=== PATIENT | male | born 1930 | race Caucasian/White ===

== ENCOUNTER 2017-10-05 16:24 | Inpatient (IN) | payer MEDICARE ==
[2017-10-05] MEDS ORDERED: SODIUM CHLORIDE 0.9% 1,000 ML IV STA ×2 (16:29→17:41)
--- NOTE | 2017-10-05 16:51 | ED ---
General Adult HPI - General Chief complaint: Altered Mental Status Stated complaint: altered mental status Time Seen by Provider: 10/05/17 16:28 Source: patient, EMS, RN notes reviewed, old records reviewed Mode of arrival: EMS Limitations: altered mental status - History of Present Illness Initial comments: This is an 86-year-old male to the ER today. Patient is having progressively worsening shortness of breath. Patient's family is able to provide history as patient is not, EMS also provide history. Patient does not know where he is and is completely altered. Patient's brought in for 3 days of worsening symptoms, worsening breathing and worsening mental state, decreased appetite and anorexia - Related Data Home Medications Medication Instructions Recorded Confirmed Atorvastatin [Lipitor] 80 mg PO HS 10/05/17 10/05/17 Finasteride [Proscar] 5 mg PO DAILY 10/05/17 10/05/17 Glimepiride [Amaryl] 2 mg PO AC-BRKFST 10/05/17 10/05/17 Metoprolol Tartrate [Lopressor] 50 mg PO BID 10/05/17 10/05/17 amLODIPine [Norvasc] 5 mg PO DAILY 10/05/17 10/05/17 metFORMIN HCL [Glucophage] 850 mg PO TID 10/05/17 10/05/17 Allergies Allergy/AdvReac Type Severity Reaction Status Date / Time No Known Allergies Allergy Unverified 10/05/17 17:06 Review of Systems ROS Statement: Those systems with pertinent positive or pertinent negative responses have been documented in the HPI. ROS Other: All systems not noted in ROS Statement are negative. Past Medical History Past Medical History: Diabetes Mellitus, Hyperlipidemia, Hypertension History of Any Multi-Drug Resistant Organisms: None Reported Past Surgical History: Unable to Obtain Past Psychological History: No Psychological Hx Reported Smoking Status: Never smoker Past Alcohol Use History: None Reported Past Drug Use History: None Reported General Exam Limitations: altered mental status General appearance: alert, lethargic, in distress Head exam: Present: atraumatic, normocephalic, normal inspection Eye exam: Present: normal appearance, PERRL, EOMI. Absent: scleral icterus, conjunctival injection, periorbital swelling ENT exam: Present: mucous membranes dry Neck exam: Present: normal inspection. Absent: tenderness, meningismus, lymphadenopathy Respiratory exam: Present: normal lung sounds bilaterally. Absent: respiratory distress, wheezes, rales, rhonchi, stridor Cardiovascular Exam: Present: regular rate, normal rhythm, normal heart sounds. Absent: systolic murmur, diastolic murmur, rubs, gallop, clicks GI/Abdominal exam: Present: soft, normal bowel sounds. Absent: distended, tenderness, guarding, rebound, rigid Extremities exam: Present: normal inspection, full ROM, normal capillary refill. Absent: tenderness, pedal edema, joint swelling, calf tenderness Back exam: Present: normal inspection Neurological exam: Present: altered Psychiatric exam: Present: normal affect, normal mood Skin exam: Present: warm, dry, intact, normal color. Absent: rash Course Vital Signs 10/05/17 10/05/17 10/05/17 16:32 19:00 19:07 Temperature 98.1 F Pulse Rate 92 90 Respiratory 20 20 26 H Rate Blood Pressure 109/52 101/56 O2 Sat by Pulse 99 99 95 Oximetry 10/05/17 10/05/17 10/05/17 19:51 20:25 20:37 Temperature Pulse Rate 89 98 85 Respiratory 26 H 26 H 26 H Rate Blood Pressure 95/51 99/55 122/58 O2 Sat by Pulse 94 L 93 L 97 Oximetry - Reevaluation(s) Reevaluation #1: 10/05/17 20:49 Patient's deteriorating mentally, patient placed on oxygen secondary to borderline pulse ox. Patient is agitated EKG Findings - EKG Comments: EKG Findings:: EKG shows sinus rhythm rate of 88, [place] 164, QRS 120, QTc 486 Medical Decision Making - Medical Decision Making 86 male the ER for evaluation, patient has been made DO NOT RESUSCITATE patient. Patient is here for evaluation regarding altered mental state. Patient has been having declining health for 3 days, severe metabolic acidosis secondary to renal failure and uremia patient given bicarb, admitted to ICU for further evaluation and electrolyte management, fluid intake and cardiopulmonary status - Lab Data Result diagrams: 10/05/17 16:40 10/05/17 16:40 Lab Results 10/05/17 10/05/17 10/05/17 Range/Units 16:40 16:40 16:40 WBC 5.9 (3.8-10.6) k/uL RBC 2.78 L (4.30-5.90) m/uL Hgb 7.8 L (13.0-17.5) gm/dL Hct 26.1 L (39.0-53.0) % MCV 94.1 (80.0-100.0) fL MCH 28.0 (25.0-35.0) pg MCHC 29.7 L (31.0-37.0) g/dL RDW 13.9 (11.5-15.5) % Plt Count 222 (150-450) k/uL Neutrophils % 67 % Lymphocytes % 24 % Monocytes % 5 % Eosinophils % 3 % Basophils % 0 % Neutrophils # 4.0 (1.3-7.7) k/uL Lymphocytes # 1.4 (1.0-4.8) k/uL Monocytes # 0.3 (0-1.0) k/uL Eosinophils # 0.2 (0-0.7) k/uL Basophils # 0.0 (0-0.2) k/uL Hypochromasia Marked PT (9.0-12.0) sec INR (<1.2) APTT (22.0-30.0) sec Sample Site ABG pH (7.35-7.45) ABG pCO2 (35-45) mmHg ABG pO2 (83-108) mmHg ABG HCO3 (21-25) mmol/L ABG O2 Saturation (94-97) % [place] Test FiO2 % Sodium 141 (137-145) mmol/L Potassium 5.5 H (3.5-5.1) mmol/L Chloride 114 H (98-107) mmol/L Carbon Dioxide <5 L* (22-30) mmol/L Anion Gap mmol/L BUN 111 H* (9-20) mg/dL Creatinine 11.80 H* (0.66-1.25) mg/dL Est GFR (CKD-EPI)AfAm 4 (>60 ml/min/1.73 sqM) Est GFR (CKD-EPI)NonAf 3 (>60 ml/min/1.73 sqM) Glucose 171 H (74-99) mg/dL Lactic Ac Sepsis Rflx Plasma Lactic Acid Gabriele (0.7-2.0) mmol/L Calcium 8.2 L (8.4-10.2) mg/dL Phosphorus 8.4 H* (2.5-4.5) mg/dL Magnesium 1.7 (1.6-2.3) mg/dL Total Bilirubin 0.2 (0.2-1.3) mg/dL AST 18 (17-59) U/L ALT 21 (21-72) U/L Alkaline Phosphatase 93 (38-126) U/L Total Creatine Kinase 47 L (55-170) U/L CK-MB (CK-2) 2.6 H* (0.0-2.4) ng/mL CK-MB (CK-2) Rel Index 5.5 Troponin I 0.359 H* (0.000-0.034) ng/mL Total Protein 5.6 L (6.3-8.2) g/dL Albumin 3.4 L (3.5-5.0) g/dL Urine Color Urine Appearance (Clear) Urine pH (5.0-8.0) Ur Specific [place] (1.001-1.035) Urine Protein (Negative) Urine Glucose (UA) (Negative) Urine Ketones (Negative) Urine Blood (Negative) Urine Nitrite (Negative) Urine Bilirubin (Negative) Urine Urobilinogen (<2.0) mg/dL Ur Leukocyte Esterase (Negative) Urine RBC (0-5) /hpf Urine WBC (0-5) /hpf Urine WBC Clumps (None) /hpf Ur Squamous Epith Cells (0-4) /hpf Urine Bacteria (None) /hpf Urine Yeast (Budding) (None) /hpf 10/05/17 10/05/17 10/05/17 Range/Units 16:40 16:40 17:02 WBC (3.8-10.6) k/uL RBC (4.30-5.90) m/uL Hgb (13.0-17.5) gm/dL Hct (39.0-53.0) % MCV (80.0-100.0) fL MCH (25.0-35.0) pg MCHC (31.0-37.0) g/dL RDW (11.5-15.5) % Plt Count (150-450) k/uL Neutrophils % % Lymphocytes % % Monocytes % % Eosinophils % % Basophils % % Neutrophils # (1.3-7.7) k/uL Lymphocytes # (1.0-4.8) k/uL Monocytes # (0-1.0) k/uL Eosinophils # (0-0.7) k/uL Basophils # (0-0.2) k/uL Hypochromasia PT 9.7 (9.0-12.0) sec INR 1.0 (<1.2) APTT 26.4 (22.0-30.0) sec Sample Site ABG pH (7.35-7.45) ABG pCO2 (35-45) mmHg ABG pO2 (83-108) mmHg ABG HCO3 (21-25) mmol/L ABG O2 Saturation (94-97) % [place] Test FiO2 % Sodium (137-145) mmol/L Potassium (3.5-5.1) mmol/L Chloride (98-107) mmol/L Carbon Dioxide (22-30) mmol/L Anion Gap mmol/L BUN (9-20) mg/dL Creatinine (0.66-1.25) mg/dL Est GFR (CKD-EPI)AfAm (>60 ml/min/1.73 sqM) Est GFR (CKD-EPI)NonAf (>60 ml/min/1.73 sqM) Glucose (74-99) mg/dL Lactic Ac Sepsis Rflx Y Plasma Lactic Acid [place]rie[place] 5.2 H* (0.7-2.0) mmol/L Calcium (8.4-10.2) mg/dL Phosphorus (2.5-4.5) mg/dL Magnesium (1.6-2.3) mg/dL Total Bilirubin (0.2-1.3) mg/dL AST (17-59) U/L ALT (21-72) U/L Alkaline Phosphatase (38-126) U/L Total Creatine Kinase (55-170) U/L CK-MB (CK-2) (0.0-2.4) ng/mL CK-MB (CK-2) Rel Index Troponin I (0.000-0.034) ng/mL Total Protein (6.3-8.2) g/dL Albumin (3.5-5.0) g/dL Urine Color Urine Appearance (Clear) Urine pH (5.0-8.0) Ur Specific [place] (1.001-1.035) Urine Protein (Negative) Urine Glucose (UA) (Negative) Urine Ketones (Negative) Urine Blood (Negative) Urine Nitrite (Negative) Urine Bilirubin (Negative) Urine Urobilinogen (<2.0) mg/dL Ur Leukocyte Esterase (Negative) Urine RBC (0-5) /hpf Urine WBC (0-5) /hpf Urine WBC Clumps (None) /hpf Ur Squamous Epith Cells (0-4) /hpf Urine Bacteria (None) /hpf Urine Yeast (Budding) (None) /hpf 10/05/17 10/05/17 Range/Units 17:43 18:25 WBC (3.8-10.6) k/uL RBC (4.30-5.90) m/uL Hgb (13.0-17.5) gm/dL Hct (39.0-53.0) % MCV (80.0-100.0) fL MCH (25.0-35.0) pg MCHC (31.0-37.0) g/dL RDW (11.5-15.5) % Plt Count (150-450) k/uL Neutrophils % % Lymphocytes % % Monocytes % % Eosinophils % % Basophils % % Neutrophils # (1.3-7.7) k/uL Lymphocytes # (1.0-4.8) k/uL Monocytes # (0-1.0) k/uL Eosinophils # (0-0.7) k/uL Basophils # (0-0.2) k/uL Hypochromasia PT (9.0-12.0) sec INR (<1.2) APTT (22.0-30.0) sec Sample Site R. Radial ABG pH 7.02 L* (7.35-7.45) ABG pCO2 <15 L* (35-45) mmHg ABG pO2 134 H (83-108) mmHg ABG HCO3 8 L* (21-25) mmol/L ABG O2 Saturation 98.2 H (94-97) % [place] Test Yes FiO2 21 % Sodium (137-145) mmol/L Potassium (3.5-5.1) mmol/L Chloride (98-107) mmol/L Carbon Dioxide (22-30) mmol/L Anion Gap mmol/L BUN (9-20) mg/dL Creatinine (0.66-1.25) mg/dL Est GFR (CKD-EPI)AfAm (>60 ml/min/1.73 sqM) Est GFR (CKD-EPI)NonAf (>60 ml/min/1.73 sqM) Glucose (74-99) mg/dL Lactic Ac Sepsis Rflx Plasma Lactic Acid [place] (0.7-2.0) mmol/L Calcium (8.4-10.2) mg/dL Phosphorus (2.5-4.5) mg/dL Magnesium (1.6-2.3) mg/dL Total Bilirubin (0.2-1.3) mg/dL AST (17-59) U/L ALT (21-72) U/L Alkaline Phosphatase (38-126) U/L Total Creatine Kinase (55-170) U/L CK-MB (CK-2) (0.0-2.4) ng/mL CK-MB (CK-2) Rel Index Troponin I (0.000-0.034) ng/mL Total Protein (6.3-8.2) g/dL Albumin (3.5-5.0) g/dL Urine Color Light Yellow Urine Appearance Cloudy (Clear) Urine pH 5.5 (5.0-8.0) Ur Specific [place] 1.011 (1.001-1.035) Urine Protein 1+ H (Negative) Urine Glucose (UA) Negative (Negative) Urine Ketones Trace H (Negative) Urine Blood Small H (Negative) Urine Nitrite Negative (Negative) Urine Bilirubin Negative (Negative) Urine Urobilinogen <2.0 (<2.0) mg/dL Ur Leukocyte Esterase Moderate H (Negative) Urine RBC 11 H (0-5) /hpf Urine WBC 14 H (0-5) /hpf Urine WBC Clumps Few H (None) /hpf Ur Squamous Epith Cells <1 (0-4) /hpf Urine Bacteria Few H (None) /hpf Urine Yeast (Budding) Few H (None) /hpf - Radiology Data Radiology results: report reviewed (CT brain negative chest x-ray negative), image reviewed Disposition Clinical Impression: Altered mental status, Delirium due to general medical condition, Acute renal failure, Acidosis Disposition: ADMITTED IP TO THIS HOSP Condition: Critical Is patient prescribed a controlled substance at d/c from ED?: No Referrals: Joss Castro MD [Primary Care Provider] - 1-2 days
[2017-10-05 16:52] LABS: Basophils % (A) 0 %; Eosinophils # (A) 0.2 k/uL (0-0.7); Eosinophils % (A) 3 %; HCT 26.1 % (39.0-53.0); HGB 7.8 gm/dL (13.0-17.5); Hypochromasia Marked; Lymphocytes # (A) 1.4 k/uL (1.0-4.8); Lymphocytes % (A) 24 %; MCHC 29.7 g/dL (31.0-37.0); MCV 94.1 fL (80.0-100.0); Mean Platelet Volume 9.3; Monocytes # (A) 0.3 k/uL (0-1.0); Monocytes % (A) 5 %; Neutrophils % (A) 67 %; Platelet Count 222 k/uL (150-450); RBC 2.78 m/uL (4.30-5.90); RDW 13.9 % (11.5-15.5); WBC 5.9 k/uL (3.8-10.6)
[2017-10-05 17:01] LABS: Partial Thromboplastin Time 26.4 sec (22.0-30.0); Prothrombin Time 9.7 sec (9.0-12.0)
[2017-10-05 17:04] LABS: ALT 21 U/L (21-72); AST 18 U/L (17-59); Albumin 3.4 g/dL (3.5-5.0); Alkaline Phosphatase 93 U/L (38-126); Calcium 8.2 mg/dL (8.4-10.2); Chloride 114 mmol/L (98-107); Glucose 171 mg/dL (74-99); Magnesium 1.7 mg/dL (1.6-2.3); Potassium 5.5 mmol/L (3.5-5.1); Sodium 141 mmol/L (137-145); Total Bilirubin 0.2 mg/dL (0.2-1.3); Total Protein 5.6 g/dL (6.3-8.2)
[2017-10-05 17:09] LABS: Carbon Dioxide <5 mmol/L (22-30)
[2017-10-05 17:10] LABS: Blood Urea Nitrogen 111 mg/dL (9-20); Phosphorus 8.4 mg/dL (2.5-4.5)
[2017-10-05 17:26] LABS: Creatine Kinase MB 2.6 ng/mL (0.0-2.4); Troponin I 0.359 ng/mL (0.000-0.034)
--- NOTE | 2017-10-05 17:34 | CT ---
EXAMINATION TYPE: CT brain wo con DATE OF EXAM: 10/05/2017 COMPARISON: NONE HISTORY: Weakness and slurred speech CT DLP: 1284.3 mGycm Automated exposure control for dose reduction was used. Helical imaging through the brain FINDINGS: Inflammatory changes present in the maxillary sinuses. The calvarium is intact. There is no hemorrhag e or hydrocephalus. Cortical atrophy is likely age-related. Cerebral vascular calcifications are pres ent. Periventricular white matter shows patchy low attenuation. IMPRESSION: AGE-RELATED CHANGES OF ATROPHY AND PROBABLE CHRONIC SMALL VESSEL ISCHEMIA.
--- NOTE | 2017-10-05 17:36 | XR ---
EXAMINATION TYPE: XR chest 2V DATE OF EXAM: 10/05/2017 COMPARISON: NONE HISTORY: Weakness, altered mental status TECHNIQUE: Frontal and lateral views of the chest are obtained. FINDINGS: Patient is rotated. There is prominence of right hilum possibly due to technique. Heart si ze may be accentuated due to rotation, patient is post median sternotomy. There is no evident airspac e disease, pneumothorax, or pleural effusion. IMPRESSION: Rotated exam. Follow-up in patient is clinically stable. Additional findings above.
[2017-10-05] MEDS ORDERED: SODIUM CHLORIDE 0.9% 500 ML IV STA (17:41)
[2017-10-05 17:47] LABS: ABG Oxygen Saturation 98.2 % (94-97); ABG PO2 134 mmHg (83-108)
[2017-10-05] MEDS ORDERED: SODIUM BICARB 8.4% 50 ML SYR (1 MEQ/ML) IV ONE (17:50)
[2017-10-05 18:29] LABS: ABG PCO2 <15 mmHg (35-45); ABG PH 7.02 (7.35-7.45)
[2017-10-05 18:31] LABS: ABG HCO3 8 mmol/L (21-25)
[2017-10-05 18:43] LABS: Appearance,Urine Cloudy (Clear); Bacteria,Urine Few /hpf; Bilirubin,Urine Negative (Negative); Blood,Urine Small (Negative); Budding Yeast,Urine Few /hpf; Color,Urine Light Yellow; Glucose,Urine (UA) Negative (Negative); Ketones,Urine Trace (Negative); Leukocyte Esterase,Urine Moderate (Negative); Nitrite,Urine Negative (Negative); PH, Urine 5.5 (5.0-8.0); Protein,Urine 1+ (Negative); RBC,Urine 11 /hpf (0-5); Specific Gravity,Urine 1.011 (1.001-1.035); Squamous Epithelial Cell,Urine <1 /hpf (0-4); Urobilinogen,Urine <2.0 mg/dL (<2.0); WBC,Urine 14 /hpf (0-5)
[2017-10-05] MEDS ORDERED: IPRATROPIUM-ALBUTEROL 3 ML NEB INHALATION STA (19:10)
[2017-10-05] MEDS ORDERED: cefTRIAXone 2,000 MG in SODIUM CHLORIDE 0.9% 100 ML IVPB STA (19:54)
[2017-10-05] MEDS ORDERED: cefTRIAXone IN SWFI 2,000 MG/20 ML SYRINGE IVP STA (20:04)
[2017-10-05] MEDS ORDERED: LORazepam 2 MG/ML INJ IV STA (20:10)
[2017-10-05] MEDS ORDERED: NALOXONE 0.4 MG/ML 1 ML VIAL IV PRN (20:40)
[2017-10-05] MEDS ORDERED: DEXTROSE 5%-0.45% NACL 1,000 ML IV SCH (20:45)
[2017-10-05] MEDS ORDERED: DEXTROSE 5% IN WATER 1,000 ML with SODIUM BICARB (1 MEQ/ML) 150 ML IV SCH (20:45)
--- NOTE | 2017-10-05 20:56 | XR ---
EXAMINATION TYPE: XR chest 1V portable DATE OF EXAM: 10/05/2017 COMPARISON: Prior chest same date earlier time HISTORY: Difficulty breathing TECHNIQUE: Single frontal view of the chest is obtained. FINDINGS: There is been interval development of bilateral airspace disease, increase in the intersti tium. No pneumothorax or pleural effusion. Heart is enlarged. IMPRESSION: Findings suggest congestive heart failure.
[2017-10-05 23:26] LABS: Glucose,Whole Blood 251 mg/dL (75-99)
[2017-10-06] MEDS ORDERED: LORazepam 2 MG/ML INJ IV PRN (00:20)
[2017-10-06] MEDS ORDERED: NOREPINEPHRIN 4 MG-0.9% NS PMX 4 MG/250 ML ML IV SCH (00:30)
--- NOTE | 2017-10-06 01:49 | P.PN ---
Progress Note - Text Progress Note Date: 10/06/17 Advanced Care Planning Active diagnoses: acute metabolic encephalopathy acute kidney in jury hypotesion metabolic imbalance Background: The patient was admitted for treatment of acute metabolic encephalopathy and acute kidney injury . Confirmation and clarification of wishes upon admission. Discussion: Person(s) present and participating in discussion: The patient, myself, and patient's two sons Summary: The patient has altered mental status and unable to express his wishes at this time, Per his son, he would not wish for CPR and artificial life sustaining measures, he lived all his life as a strong person and would not like to be living on machines. Patient sons agreed on No code status (DNR) but at the same time to continue aggressive measures in treating their father at least for the first 24-48 hours and to assess for any progress and improvement . If elective intubation is required they would like to have it discussed with them first before proceeding. They also agreed on continuing with dialysis as needed , and to use IV pressors if needed. Time spent: Total time spent face to face in education and discussion directly related to advanced care planning: >15 minutes
--- NOTE | 2017-10-06 01:59 | P.HPIM ---
History of Present Illness H&P Date: 10/05/17 Chief Complaint: Altered mental status 86-year-old male with history of diabetes mellitus hypertension and history of a bypass. Patient presented to the hospital accompanied by his sons due to altered mental status. He was at his baseline status of health up until few days ago he is very active person he would mow the lawn do yardwork in very active spends his day out running errands. He continues to take care of his and refill her medications and make sure she takes them. However over the past couple days he has not been feeling well however he was refusing going hospital up until today when he woke up and he seemed to be confused and altered in having poor appetite. His son grew more concerned and decided to bring him to the hospital otherwise the patient is unable to provide any meaningful history at this time due to altered mental status. History was obtained by reviewing the chart and talking to his sons Currently patient is in the ICU receiving hemodialysis. Patient grimaces to painful stimuli by otherwise does not interact or follow commands. The patient would fidget spontaneously move his upper extremities at times not purposefully. Patient symptoms denied any report of chest pain any injuries or falls. They have noticed that he had decreased appetite recently Review of Systems Unable to obtain at this time Past Medical History Past Medical History: Diabetes Mellitus, Hyperlipidemia, Hypertension History of Any Multi-Drug Resistant Organisms: None Reported Past Surgical History: Unable to Obtain Past Psychological History: No Psychological Hx Reported Smoking Status: Never smoker Past Alcohol Use History: None Reported Past Drug Use History: None Reported - Past Family History Family Additional Family Medical History / Comment(s): Unable to obtain Medications and Allergies Home Medications Medication Instructions Recorded Confirmed Type Atorvastatin [Lipitor] 80 mg PO HS 10/05/17 10/05/17 History Finasteride [Proscar] 5 mg PO DAILY 10/05/17 10/05/17 History Glimepiride [Amaryl] 2 mg PO AC-BRKFST 10/05/17 10/05/17 History Metoprolol Tartrate [Lopressor] 50 mg PO BID 10/05/17 10/05/17 History amLODIPine [Norvasc] 5 mg PO DAILY 10/05/17 10/05/17 History metFORMIN HCL [Glucophage] 850 mg PO TID 10/05/17 10/05/17 History Allergies Allergy/AdvReac Type Severity Reaction Status Date / Time No Known Allergies Allergy Unverified 10/05/17 17:06 Physical Exam Vitals: Vital Signs Temp Pulse Resp BP Pulse Ox 10/05/17 21:24 92 25 H 107/54 93 L 10/05/17 21:00 89 24 117/56 95 10/05/17 20:37 85 26 H 122/58 97 10/05/17 20:25 98 26 H 99/55 93 L 10/05/17 19:51 89 26 H 95/51 94 L 10/05/17 19:07 26 H 95 10/05/17 19:00 90 20 101/56 99 10/05/17 16:32 98.1 F 92 20 109/52 99 Intake and Output 10/05/17 10/05/17 10/05/17 06:59 14:59 22:59 Output Total 60 Balance -60 Output: Urine 60 Other: Weight 84.368 kg Constitutional: Altered mental status and confusion patient not following commands very lethargic Eyes: Anicteric sclerae, moist conjunctiva Pupils equal round reactive to light ENMT: NC/AT Patient resists opening his mouth Neck: Supple, FROM, no masses, or JVD No carotid bruits No thyromegaly Lungs: Audible breath sounds bilaterally with scattered rales Clear to percussion Normal respiratory effort, no accessory muscle use Cardiovascular: Heart regular in rate and rhythm, No murmurs, gallops, or rubs No peripheral edema Abdominal: Soft Nontender, no guarding, rebound or rigidity Abdomen moving with respiration Normoactive bowel sounds No hepatomegaly, No splenomegaly No palpable mass No abdominal wall hernia noted Skin: Normal temperature, tone, texture, turgor No induration No subcutaneous nodules No rash, lesions No ulcers Extremities: No digital cyanosis No clubbing Pedal pulses intact and symmetrical Radial pulses intact and symmetrical No calf tenderness Psychiatric: Lethargic not following commands, grimaces and localizes painful stimuli Neuro cannot assess neurologic exam Lymphatics: no palpable cervical or supraclavicular , or inguinal lymph nodes Patient currently receiving hemodialysis Results CBC & Chem 7: 10/05/17 16:40 10/05/17 16:40 Labs: Abnormal Lab Results - Last 24 Hours (Table) 10/05/17 10/05/17 10/05/17 Range/Units 16:40 16:40 16:40 RBC 2.78 L (4.30-5.90) m/uL Hgb 7.8 L (13.0-17.5) gm/dL Hct 26.1 L (39.0-53.0) % MCHC 29.7 L (31.0-37.0) g/dL ABG pH (7.35-7.45) ABG pCO2 (35-45) mmHg ABG pO2 (83-108) mmHg ABG HCO3 (21-25) mmol/L ABG O2 Saturation (94-97) % Potassium 5.5 H (3.5-5.1) mmol/L Chloride 114 H (98-107) mmol/L Carbon Dioxide <5 L* (22-30) mmol/L BUN 111 H* (9-20) mg/dL Creatinine 11.80 H* (0.66-1.25) mg/dL Glucose 171 H (74-99) mg/dL Plasma Lactic Acid [place] (0.7-2.0) mmol/L Calcium 8.2 L (8.4-10.2) mg/dL Phosphorus 8.4 H* (2.5-4.5) mg/dL Total Creatine Kinase 47 L (55-170) U/L CK-MB (CK-2) 2.6 H* (0.0-2.4) ng/mL Troponin I 0.359 H* (0.000-0.034) ng/mL Total Protein 5.6 L (6.3-8.2) g/dL Albumin 3.4 L (3.5-5.0) g/dL Urine Protein (Negative) Urine Ketones (Negative) Urine Blood (Negative) Ur Leukocyte Esterase (Negative) Urine RBC (0-5) /hpf Urine WBC (0-5) /hpf Urine WBC Clumps (None) /hpf Urine Bacteria (None) /hpf Urine Yeast (Budding) (None) /hpf 10/05/17 10/05/17 10/05/17 Range/Units 16:40 17:43 18:25 RBC (4.30-5.90) m/uL Hgb (13.0-17.5) gm/dL Hct (39.0-53.0) % MCHC (31.0-37.0) g/dL ABG pH 7.02 L* (7.35-7.45) ABG pCO2 <15 L* (35-45) mmHg ABG pO2 134 H (83-108) mmHg ABG HCO3 8 L* (21-25) mmol/L ABG O2 Saturation 98.2 H (94-97) % Potassium (3.5-5.1) mmol/L Chloride (98-107) mmol/L Carbon Dioxide (22-30) mmol/L BUN (9-20) mg/dL Creatinine (0.66-1.25) mg/dL Glucose (74-99) mg/dL Plasma Lactic Acid [place] 5.2 H* (0.7-2.0) mmol/L Calcium (8.4-10.2) mg/dL Phosphorus (2.5-4.5) mg/dL Total Creatine Kinase (55-170) U/L CK-MB (CK-2) (0.0-2.4) ng/mL Troponin I (0.000-0.034) ng/mL Total Protein (6.3-8.2) g/dL Albumin (3.5-5.0) g/dL Urine Protein 1+ H (Negative) Urine Ketones Trace H (Negative) Urine Blood Small H (Negative) Ur Leukocyte Esterase Moderate H (Negative) Urine RBC 11 H (0-5) /hpf Urine WBC 14 H (0-5) /hpf Urine WBC Clumps Few H (None) /hpf Urine Bacteria Few H (None) /hpf Urine Yeast (Budding) Few H (None) /hpf 10/05/ Range/Units 20:25 RBC (4.30-5.90) m/uL Hgb (13.0-17.5) gm/dL Hct (39.0-53.0) % MCHC (31.0-37.0) g/dL ABG pH (7.35-7.45) ABG pCO2 (35-45) mmHg ABG pO2 (83-108) mmHg ABG HCO3 (21-25) mmol/L ABG O2 Saturation (94-97) % Potassium (3.5-5.1) mmol/L Chloride (98-107) mmol/L Carbon Dioxide (22-30) mmol/L BUN (9-20) mg/dL Creatinine (0.66-1.25) mg/dL Glucose (74-99) mg/dL Plasma Lactic Acid [place] 7.4 H* (0.7-2.0) mmol/L Calcium (8.4-10.2) mg/dL Phosphorus (2.5-4.5) mg/dL Total Creatine Kinase (55-170) U/L CK-MB (CK-2) (0.0-2.4) ng/mL Troponin I (0.000-0.034) ng/mL Total Protein (6.3-8.2) g/dL Albumin (3.5-5.0) g/dL Urine Protein (Negative) Urine Ketones (Negative) Urine Blood (Negative) Ur Leukocyte Esterase (Negative) Urine RBC (0-5) /hpf Urine WBC (0-5) /hpf Urine WBC Clumps (None) /hpf Urine Bacteria (None) /hpf Urine Yeast (Budding) (None) /hpf Assessment and Plan Assessment: 86-year-old male with history of diabetes patient admitted to the hospital with anticipated length of stay of more than 2 days for severe acute metabolic encephalopathy and acute kidney injury. Patient was with baseline status of health up until a few days ago when he started gradually however patient was refusing to see doctors until today when he woke up and seemed to be confused and altered for which his son brought to the house he was found to be in acute kidney injury, severely altered and confused, have severe anemia, severe lactic acidosis, and hyperkalemia chest x-ray revealed pulmonary congestion and edema, EKG showed lateral lead ST depression patient has history of a triple bypass and evidence of left ventricular hypertrophy Plan: Acute metabolic encephalopathy Acute kidney injury Severe metabolic acidosis Severe lactic acidosis Electrolyte derangements, hyperkalemia and hyperphosphatemia EKG showing evidence of LVH and early repolarization changes with ST depression in the lateral leads, not available prior EKGs for comparison, patient has history of quadruple bypass Diabetes mellitus Hypertension currently borderline low blood pressure Hyperlipidemia Anemia, family denies any history of GI bleeding Aggressive medical measures at this time, patient started on hemodialysis IV pressors will be started to blood pressure drops Supportive care for now Insulin sliding scale Continue with neuro exams Bookkeeping Machine Mechanic consult Cardiology consult bicarb drip Nothing by mouth Follow-up labs Check cultures Nephrology consult She scan of the head is unremarkable for any bleeding or other acute processes Surrogate decision-maker: Patient's son CODE STATUS: DO NOT RESUSCITATE Discussed with: , ER, RN, family Anticipated discharge: 48-[address]: Pending clinical course A total of 55 minutes was spent on the care of this complex patient more than 50 % of the time was spent in counseling and care coordination.
[2017-10-06] MEDS ORDERED: PROPOFOL 100 ML IV ONE (04:20)
[2017-10-06 04:58] LABS: Basophils % (A) 0 %; Eosinophils # (A) 0.1 k/uL (0-0.7); Eosinophils % (A) 2 %; HCT 26.4 % (39.0-53.0); HGB 8.3 gm/dL (13.0-17.5); Hypochromasia Slight; Lymphocytes # (A) 0.7 k/uL (1.0-4.8); Lymphocytes % (A) 10 %; MCH 29.2 pg (25.0-35.0); MCHC 31.6 g/dL (31.0-37.0); MCV 92.4 fL (80.0-100.0); Mean Platelet Volume 8.6; Monocytes # (A) 0.3 k/uL (0-1.0); Monocytes % (A) 4 %; Neutrophils # (A) 5.6 k/uL (1.3-7.7); Neutrophils % (A) 84 %; Platelet Count 183 k/uL (150-450); RBC 2.86 m/uL (4.30-5.90); WBC 6.6 k/uL (3.8-10.6)
[2017-10-06 05:16] LABS: Albumin 2.9 g/dL (3.5-5.0); Calcium 7.8 mg/dL (8.4-10.2); Magnesium 1.6 mg/dL (1.6-2.3); Phosphorus 6.1 mg/dL (2.5-4.5); Potassium 4.1 mmol/L (3.5-5.1); Total Bilirubin 0.4 mg/dL (0.2-1.3); Total Protein 4.8 g/dL (6.3-8.2)
[2017-10-06 05:16] LABS: ABG Base Excess -18.5 mmol/L; ABG HCO3 11 mmol/L (21-25); ABG PCO2 32 mmHg (35-45); ABG PO2 72 mmHg (83-108); ABG TCO2 12 mmol/L (19-24)
--- NOTE | 2017-10-06 05:28 | XR ---
EXAM: XR Chest, 1 View CLINICAL HISTORY: ITS.REASON XR Reason: fluid overload TECHNIQUE: Frontal view of the chest. COMPARISON: 10/05/17. FINDINGS: Lungs: Interval increase in patchy airspace opacities, more prominent in the right lung. Pleural space: Probable small right pleural effusion. Questionable pleural line in the right upper chest, query artifact. Heart: Stable. Mediastinum: Stable. Bones/joints: Stable. Tubes, lines and devices: Endotracheal tube with the tip approximately 6 cm above the lavelle. Feeding tube with the tip at the gastric fundus. Tubing material overlying the right neck. Correlate clinically. IMPRESSION: 1. Interval increase in patchy airspace opacities, more prominent in the right lung. 2. Probable small right pleural effusion. 3. Questionable pleural line in the right upper chest, query artifact. Attention on followup recommended. 4. Tubes and lines, as above.
[2017-10-06 05:39] LABS: ABG PH 7.13 (7.35-7.45)
[2017-10-06] MEDS ORDERED: NOREPINEPHRINE 4 MG in DEXTROSE 5% IN WATER 250 ML IV SCH ×2 (05:45)
[2017-10-06] MEDS: NOREPINEPHRINE 4 MG in DEXTROSE 5% IN WATER 250 ML IV STA ×4 (05:47→08:26)
[2017-10-06] MEDS: PROPOFOL 1,000 MG in EMPTY BAG 1 BAG IV SCH ×5 (05:48→21:31)
[2017-10-06] MEDS ORDERED: INSULIN ASPART 100 UNIT/ML 1 ML 10 ML VIAL SQ SCH (06:00)
[2017-10-06 07:30] LABS: ABG HCO3 13 mmol/L (21-25); ABG Oxygen Saturation 90.9 % (94-97); ABG PCO2 34 mmHg (35-45); ABG PO2 65 mmHg (83-108); ABG TCO2 14 mmol/L (19-24)
[2017-10-06 07:31] LABS: ABG PH 7.17 (7.35-7.45)
[2017-10-06] MEDS ORDERED: SODIUM BICARB 8.4% 50 ML SYR (1 MEQ/ML) ONE (07:35)
[2017-10-06] MEDS ORDERED: SODIUM BICARB 8.4% 50 ML SYR (1 MEQ/ML) IV STA (07:37)
[2017-10-06 07:39] LABS: Glucose,Whole Blood 316 mg/dL (75-99)
[2017-10-06] MEDS ORDERED: DEXTROSE 5% IN WATER 1,000 ML with SODIUM BICARB (1 MEQ/ML) 150 ML IV SCH (08:00)
[2017-10-06] MEDS: IPRATROPIUM-ALBUTEROL 3 ML NEB INHALATION SCH ×4 (08:15→19:51)
[2017-10-06] MEDS: CHLORHEXIDINE GLUCONATE 15 ML CUP MUCOUS MEM SCH ×2 (08:59→20:47)
[2017-10-06] MEDS ORDERED: ENOXAPARIN 40 MG/0.4 ML SYRINGE SQ SCH (09:00)
[2017-10-06] MEDS ORDERED: ENOXAPARIN 30 MG/0.3 ML SYRINGE SQ SCH (09:00)
--- NOTE | 2017-10-06 09:22 | CONS ---
CONSULTATION REASON FOR CONSULT: Renal failure, severe acidosis. HISTORY OF PRESENT ILLNESS: The patient is an 86-year-old male who was admitted to the hospital yesterday with complaints of altered mentation, weakness, not feeling well. He was also short of breath for a few days prior to admission. When patient came into the ER, he was hypotensive. His labs showed severe metabolic acidosis with CO2 of less than 5. Serum creatinine was at 11.8 mg/dL. Potassium was at 5.5. The patient did have his first treatment of hemodialysis yesterday. His blood pressure was running low. He is currently on Levophed, which is now up to 30 mcg. The patient was intubated last night. Currently, patient is maintained on a bicarb drip. He has not had much urine output. There is no active bleeding noted. He has had loose bowel movements, but no significant watery diarrhea. Cultures are currently pending. Patient also had elevated lactic acid levels. Chest x-ray showed patchy airspace opacities mainly in the right lung with small right pleural effusion. PAST MEDICAL HISTORY: Coronary artery disease with history of coronary artery bypass surgery. Patient has been fairly healthy and has not seen a physician for some time. He also has type 2 diabetes, hyperlipidemia, hypertension. MEDICATIONS: Medications at home prior to admission included Lipitor, Proscar, Amaryl, Lopressor, Norvasc, Glucophage. ALLERGIES: None. EXAMINATION: Patient is currently sedated. He is on the vent. FiO2 is at 100%. Blood pressure 107/48, heart rate 88 per minute. Patient is on 30 mcg of Levophed. He is maintained on bicarb drip. He has a Odonnell catheter with no significant urine output. Examination of the heart S1, S2. Examination of the lungs bilateral breath sounds are heard. Abdomen is soft, nontender. Exam of lower extremities shows no significant edema. MACHINIST WOOD exam cannot be performed. Patient had been moving all 4 extremities previously. LAB: Show sodium 142, potassium 4.1, chloride 108, CO2 is 6, BUN 63, serum creatinine 6.87, calcium 7.8, magnesium 1.6, phosphorus 6.1. UA showed 1+ protein, WBCs 14, WBC clumps few, blood is small. ASSESSMENT: 1. Acute kidney injury, acute tubular necrosis, currently oliguric secondary to sepsis, hypotension, hypoperfusion, status post one treatment of hemodialysis yesterday. The patient should ideally be dialyzed again today. However, he is significantly hypotensive. If he is hemodynamically improved by mid day, we will plan for 2nd treatment of hemodialysis today. 2. Severe metabolic acidosis secondary to lactic acidosis, renal failure. The patient was on Glucophage, which is now discontinued. I will continue with aggressive IV bicarb and if we are able to repeat dialysis, this will also help with his acidosis. 3. Hyperphosphatemia associated with renal failure. 4. Respiratory failure, hypoxic, currently on the vent. 5. Right lung pneumonia maintained on empiric antibiotics. PLAN: Increase bicarb drip. Repeat labs at noon. We will plan for 2nd treatment of hemodialysis if the patient is hemodynamically stable. Check ultrasound of the kidneys. Continue empiric antibiotics. Thank you for this consultation. We will continue to follow the patient with you during his hospitalization. ROSE / HERB: [id number] /
[2017-10-06 09:36] LABS: ABG Base Excess -10.7 mmol/L; ABG HCO3 16 mmol/L (21-25); ABG Oxygen Saturation 97.1 % (94-97); ABG PCO2 35 mmHg (35-45); ABG PH 7.27 (7.35-7.45); ABG PO2 86 mmHg (83-108); ABG TCO2 17 mmol/L (19-24)
[2017-10-06] MEDS ORDERED: VANCOMYCIN IV PER PHARMACY 1 EACH MISC MISCELLANE PRN (09:41)
[2017-10-06] MEDS: DEXTROSE 5% IN WATER 1,000 ML with SODIUM BICARB (1 MEQ/ML) 150 ML IV SCH ×2 (09:58→20:46)
[2017-10-06] MEDS ORDERED: VANCOMYCIN 1,500 MG in SODIUM CHLORIDE 0.9% 250 ML IVPB ONE (10:00)
[2017-10-06] MEDS ORDERED: CISATRACURIUM 2 MG/ML 5 ML VIAL IV ONE ×2 (10:17→10:19)
[2017-10-06] MEDS: PANTOPRAZOLE 40 MG/10 ML VIAL IVP SCH (10:30)
[2017-10-06] MEDS: PIPERACILLIN-TAZOBACTAM 3.375 GM in DEXTROSE/WATER 1 50ML.BAG IVPB SCH ×2 (10:30→21:46)
--- NOTE | 2017-10-06 10:49 | US ---
EXAMINATION TYPE: US kidneys/renal and bladder DATE OF EXAM: 10/06/2017 COMPARISON: NONE CLINICAL HISTORY: Renal failure. Intubated ICU patient EXAM MEASUREMENTS: Right Kidney: 11.2 x 5.1 x 5.4 cm Left Kidney: 11.3 x 4.8 x 5.2 cm Right Kidney: No hydronephrosis or masses seen Left Kidney: bulky anterior mid pole, probable dromedary hump Bladder: flores cath seen There is no evidence for hydronephrosis at this point in time. No nephrolithiasis is seen. No nicole s are identified. Cortical medullary differentiation is maintained. Question some increased cortical echogenicity. IMPRESSION: Findings suggest medical renal disease.
--- NOTE | 2017-10-06 11:03 | XR ---
EXAMINATION TYPE: XR chest 1V confirm line [facility] DATE OF EXAM: 10/06/2017 COMPARISON: Prior chest x-ray 10/06/2017 HISTORY: Status post central venous catheter placement TECHNIQUE: Single frontal view of the chest is obtained. FINDINGS: There is been interval placement of a left jugular central venous catheter, distal tip is in the right atrium. No evident pneumothorax or pleural effusion. No other significant interval menendez e. IMPRESSION: No evident complication status post central venous catheter placement.
--- NOTE | 2017-10-06 11:07 | CONS ---
CONSULTATION This is an 86-year-old gentleman who came to the emergency room with shortness of breath. The patient has history of diabetes mellitus, history of hypertension, history of coronary bypass. The patient was admitted with high BUN and creatinine and I was consulted for placement of urgent dialysis catheter. MEDICAL HISTORY: History of diabetes mellitus, hyperlipidemia, hypertension. EXAM: Patient was seen in the emergency room. He is very short of breath and he has an oxygen face mask and he is very restless. His first and second sounds present. Chest has crackles bilateral and neck is no bruit appreciated. ABDOMEN: Soft. Femoral pulses are palpable. PLAN: Placement of urgent dialysis catheter. Thank you very much for the consultation. MMAMADAL / IJN: [id number] /
--- NOTE | 2017-10-06 11:13 | PCN ---
PROCEDURE NOTE PREOP DIAGNOSES: Acute on chronic renal failure, metabolic acidosis. PROCEDURE PERFORMED: Placement of urgent dialysis catheter. DESCRIPTION OF PROCEDURE: The patient was seen in the emergency room. Right groin was prepped and drapes were applied in the usual sterile manner. 1% lidocaine was infiltrated into the right groin. Micropuncture introduced into right common femoral vein and micropuncture guide was passed. After that, a 4-Colombian dilator advanced on the top of the guidewire. Then we passed a regular guidewire without any resistance. First, we passed a dilator. Then, we placed a temporary dialysis catheter on the top of the guidewire, flushed with heparin saline and hep-locked and secured with 3-0 nylon. Dressing applied. Patient tolerated the procedure well. ROSE / NEALN: [id number] /
[2017-10-06 12:16] LABS: Glucose,Whole Blood 351 mg/dL (75-99)
[2017-10-06] MEDS ORDERED: HEPARIN SODIUM,PORCINE 5,000 UNIT/ML 1 ML VIAL IV PRN (12:20)
[2017-10-06] MEDS ORDERED: HEPARIN SODIUM,PORCINE 5,000 UNIT/ML 1 ML VIAL IV ONE (12:20)
--- NOTE | 2017-10-06 12:28 | PCN ---
PROCEDURE NOTE PROCEDURE PERFORMED: Placement of a left internal jugular central line. PREOPERATIVE DIAGNOSIS: Acute hypoxic respiratory failure and hypotension. POSTOPERATIVE DIAGNOSIS: Acute hypoxic respiratory failure and hypotension. ANESTHESIA USED: 2 mL of 1% lidocaine. PROCEDURE: The patient was placed in a Trendelenburg position, the area of the left neck was prepared in a sterile fashion and drapes were applied. The area was locally anesthetized with lidocaine. Then, using the posterior approach, the area behind the posterior belly of the sternocleidomastoid muscle was entered, and the left internal jugular vein was easily cannulated. A guidewire was placed, and the needle was removed. Then, the area was dilated with a dilator, and a triple-lumen catheter was then inserted over the guidewire, and the guidewire was removed. Good blood flow was noted, good chest x-ray noted postoperatively. No evidence of any immediate complications, line was secured using 3.0 silk sutures. MMODL / IJN: [id number] /
--- NOTE | 2017-10-06 12:28 | PCN ---
PROCEDURE NOTE PROCEDURE PERFORMED: Placement of a left radial arterial line. PREOPERATIVE DIAGNOSIS: Acute respiratory failure and hypotension. POSTOPERATIVE DIAGNOSIS: Acute respiratory failure and hypotension. ANESTHESIA: Anesthesia used: None deployed. PROCEDURE: Patient was placed in the supine position, the left upper extremity was placed on the table, and taped for stability. Then the left wrist was prepared in a sterile fashion and drapes were applied. The left radial artery was palpated, cannulated, a guidewire was placed, and a Cook's catheter was inserted over the guidewire. Good blood flow and good waveform were noted, no evidence of any immediate complications, line was secured using 3.0 silk sutures. MMODL / IJN: [id number] /
[2017-10-06] MEDS ORDERED: INSULIN REGULAR BOLUS (FROM DRIP BAG) IV PRN (12:34)
[2017-10-06] MEDS: HEPARIN SOD,PORK IN 0.45% NACL 25,000 UNIT in 0.45% NACL 1 500ML.BAG IV SCH (12:39)
[2017-10-06 12:43] LABS: Potassium 3.2 mmol/L (3.5-5.1)
[2017-10-06 12:51] LABS: Prothrombin Time 10.2 sec (9.0-12.0)
[2017-10-06] MEDS: INSULIN REGULAR 100 UNIT in SODIUM CHLORIDE 0.9% 100 ML IV SCH (13:03)
[2017-10-06 13:32] LABS: Glucose,Whole Blood 302 mg/dL (75-99)
[2017-10-06] MEDS ORDERED: POTASSIUM BICARBONATE/CIT AC 20 MEQ TABLET.EFF PO ONE (13:34)
[2017-10-06] MEDS ORDERED: CALCIUM CHLORIDE 1,000 MG in SODIUM CHLORIDE 0.9% 100 ML IVPB STA (13:35)
[2017-10-06] MEDS: NOREPINEPHRINE 16 MG in DEXTROSE 5% IN WATER 250 ML IV SCH ×4 (13:40→18:00)
--- NOTE | 2017-10-06 14:13 | P.CNPUL ---
History of Present Illness Consult date: 10/06/17 Reason for consult: other (Acute respiratory failure) Chief complaint: Altered mental status History of present illness: This is an 86-year-old white male with history of diabetes, hypertension, hyperlipidemia, patient is normally quite active, and has no previous history of dementia or confusion. Patient was brought in by family members complaining of altered mental status for the last 2 days prior to admission. Upon evaluation in the ER, patient was noted to be quite ill, and he was found to have acute kidney injury with significant lab abnormalities upon presentation including a lactic acid of 11.8, bicarb of less than 5, significantly elevated anion gap, over 20, elevated blood sugar, abnormal ABG showed a pO2 of 134 pCO2 of less than 15 and pH of 7.08. Upon this my discussion with the ER physician, I recommended immediate intubation, however it was conveyed to the ER physician that the patient was DO NOT RESUSCITATE. Patient was admitted to the ICU, and as soon as he arrived to the ICU, his CODE STATUS was changed, and I was notified. I recommended immediate intubation. Patient is now on mechanical ventilation, sodium bicarb drip, and dialysis catheter was placed by vascular surgery, and he was dialyzed. Repeat ABG this morning showed a pO2 of 86 pCO2 of 35 pH of 7.27. Patient remains on bicarb drip, he remains hypotensive requiring about 40 g of norepinephrine. Shortly after I evaluated the patient , I placed a left radial arterial line, and a left internal jugular triple- lumen catheter. This cut his condition with his son at bedside, and explained time that his father is quite ill, and prognosis seems to be quite poor. In the meantime the patient is going to be dialyzed further today, hopefully he will be able to tolerate dialysis, he is evidently on a high dose of norepinephrine. May even consider vasopressin. Urine output presentation showed evidence of pyuria and bacteriuria, there was also evidence of positive ketones, I felt that the patient may have acute diabetic ketoacidosis, not to mention the patient has been on metformin, and overall presentation could be related to metformin causing basically that profound degree of metabolic lactic acidosis. The presentation to the ER was mostly a presentation of severe metabolic encephalopathy, with acute kidney injury, severe lactic acidosis, strongly doubt sepsis, but it is definitely in the differential diagnosis. I believe the presentation is mostly a presentation of lactic acidosis and kidney injury secondary to metformin. Review of Systems ROS unobtainable: due to endotracheal tube (Could not be obtained, patient is intubated, but according to the son the patient never had any significant complaints and has been quite active until the day of presentation.) Past Medical History Past Medical History: Diabetes Mellitus, Hyperlipidemia, Hypertension History of Any Multi-Drug Resistant Organisms: None Reported Past Surgical History: Unable to Obtain Additional Past Surgical History / Comment(s): CABGx4 in 1990, kidney stone removal x2 Past Psychological History: No Psychological Hx Reported Smoking Status: Never smoker Past Alcohol Use History: None Reported Past Drug Use History: None Reported - Past Family History Family Additional Family Medical History / Comment(s): Unable to obtain Medications and Allergies Home Medications Medication Instructions Recorded Confirmed Type Atorvastatin [Lipitor] 80 mg PO HS 10/05/17 10/05/17 History Finasteride [Proscar] 5 mg PO DAILY 10/05/17 10/05/17 History Glimepiride [Amaryl] 2 mg PO [id number] 10/05/17 10/05/17 History Metoprolol Tartrate [Lopressor] 50 mg PO BID 10/05/17 10/05/17 History amLODIPine [Norvasc] 5 mg PO DAILY 10/05/17 10/05/17 History metFORMIN HCL [Glucophage] 850 mg PO TID 10/05/17 10/05/17 History Allergies Allergy/AdvReac Type Severity Reaction Status Date / Time No Known Allergies Allergy Unverified 10/05/17 17:06 Physical Exam Vitals: Vital Signs Temp Pulse Resp BP Pulse Ox 10/06/17 13:15 101 H 20 127/58 99 10/06/17 13:00 95 23 127/58 100 10/06/17 12:45 96 20 127/58 100 10/06/17 12:30 94 20 127/58 100 10/06/17 12:15 94 24 137/59 100 10/06/17 12:09 93 10/06/17 12:00 98.6 F 94 20 137/59 100 10/06/17 11:48 99 10/06/17 11:45 94 20 137/59 100 10/06/17 11:30 100 20 137/59 100 10/06/17 11:15 98 20 137/59 100 10/06/17 11:00 103 H 24 137/59 100 10/06/17 10:50 103 H 24 98 10/06/17 10:40 100 24 98 10/06/17 10:30 98 20 93 L 10/06/17 10:20 92 23 98 10/06/17 10:10 87 20 120/52 100 10/06/17 10:00 90 24 75/49 100 10/06/17 09:50 92 20 63/41 100 10/06/17 09:40 94 20 77/38 100 10/06/17 09:30 96 20 103/50 100 10/06/17 09:20 99 24 109/50 100 10/06/17 09:10 92 20 121/63 100 10/06/17 09:00 89 20 134/58 100 10/06/17 08:50 88 20 117/48 100 10/06/17 08:40 87 21 100/50 100 10/06/17 08:30 86 20 113/52 100 10/06/17 08:22 89 10/06/17 08:00 98.1 F 87 21 91/48 100 10/06/17 07:30 88 23 107/48 95 10/06/17 07:00 89 21 97/48 95 10/06/17 06:30 96 22 99/46 94 L 10/06/17 06:00 97 20 95/46 95 10/06/17 05:30 102 H 26 H 93/41 95 10/06/17 05:00 98 F 101 H 25 H 80/46 92 L 10/06/17 04:30 118 H 36 H 104/49 89 L 10/06/17 04:00 113 H 33 H 97/45 95 10/06/17 03:30 93 29 H 113/57 93 L 10/06/17 03:00 95 31 H 127/58 99 10/06/17 02:30 86 32 H 105/54 95 10/06/17 02:00 83 31 H 93/51 94 L 10/06/17 01:30 79 24 98/54 96 10/06/17 01:00 79 20 81/49 98 10/06/17 00:30 88 22 65/43 99 10/06/17 00:00 80 19 89/42 99 10/05/17 23:43 94.5 F L 81 17 99/50 98 06/30/18 22:59 86 30 H 98/53 100 10/05/17 21:24 92 25 H 107/54 93 L 10/05/17 21:11 95 10/05/17 21:00 89 24 117/56 95 10/05/17 20:37 85 26 H 122/58 97 10/05/17 20:25 98 26 H 99/55 93 L 10/05/17 19:51 89 26 H 95/51 94 L 10/05/17 19:07 26 H 95 10/05/17 19:00 90 20 101/56 99 10/05/17 16:32 98.1 F 92 20 109/52 99 Intake and Output 10/05/17 10/06/17 10/06/17 22:59 06:59 14:59 Intake Total 022.490 2931.052 Output Total 60 45 22 Balance -60 928.009 2337.052 Intake: IV 560 556 0.9 at KVO 40 0.9 for pressure bag 6 Dextrose 5% in Water 1, 200 000 ml @ 100 mls/hr IV . [id number] LV with Sodium Bicarb (1 Meq/ml) 150 ml Rx#:[id number] Dextrose 5% in Water 1, 150 000 ml @ 150 mls/hr IV . [id number] LV with Sodium Bicarb (1 Meq/ml) 150 ml Rx#:[id number] Dextrose 5% in Water 1, 560 160 000 ml @ 80 mls/hr IV . [id number] LV with Sodium Bicarb (1 Meq/ml) 150 ml Rx#:[id number] Intake, IV Titration 256.578 559.052 Amount Insulin Regular 100 unit 4.545 In Sodium Chloride 0.9% 100 ml @ Per Protocol IV .Q0M LV Rx#:[id number] Norepinephrin 4 mg-0.9% 250.0 Ns Pmx 4 mg In 250 ml @ Titrate IV .Q0M LV Rx#: [id number] Norepinephrine 16 mg In 0 Dextrose 5% in Water 250 ml @ Titrate IV .Q0M LV Rx#:[id number] Norepinephrine 4 mg In 208.188 Dextrose 5% in Water 250 ml @ Titrate IV .Q0M LV Rx#:[id number] Norepinephrine 4 mg In 300.125 Dextrose 5% in Water 250 ml @ Titrate IV .Q0M STA Rx#:[id number] Propofol 1,000 mg In 6.578 46.194 Empty Bag 1 bag @ Titrate IV .Q0M [facility] Rx#: [id number] Output: Gastric Drainage 0 Urine 60 45 22 Other: Voiding Method Indwelling Catheter Indwelling Catheter Weight 84.4 kg 82.3 kg ABP, PAP, CO, CI - Last 8 Hours Arterial Blood Pressure 96/41 Arterial Blood Pressure 119/48 Arterial Blood Pressure 99/44 Arterial Blood Pressure 115/48 Arterial Blood Pressure 114/48 Arterial Blood Pressure 100/47 Arterial Blood Pressure 98/46 Arterial Blood Pressure 93/43 Arterial Blood Pressure 89/48 Arterial Blood Pressure 114/74 Arterial Blood Pressure 148/59 Arterial Blood Pressure 168/76 Arterial Blood Pressure 123/47 Arterial Blood Pressure 156/55 Physical Exam: Revealed an 86-year-old white male, on mechanical ventilation, sedated, in no distress. Head: Atraumatic normocephalic. HEENT:[Neck is supple.] [No neck masses.] [No thyromegaly.] [No JVD.] PERRLA, EOMI, no icterus. Chest: [Crackles and rhonchi noted bilaterally.] Cardiac Exam: [Normal S1 and S2, no S3 gallop, 2/6 systolic murmur thought the precordium. Abdomen: [Soft, nontender, no megaly, no rebound, no guarding, normal bowel sounds.] Extremities: [No clubbing, no edema, no cyanosis.] Neurological Exam: Not be assessed, patient is sedated, on mechanical ventilation. Psychiatric: Cannot be assessed. Lymphatics: No lymphadenopathy. Results - Laboratory Findings CBC and BMP: 10/06/17 03:55 10/06/17 12:15 ABG ABG pH 7.27 (7.35-7.45) L 10/06/17 09:35 ABG pCO2 35 mmHg (35-45) 10/06/17 09:35 ABG pO2 86 mmHg (83-108) 10/06/17 09:35 ABG O2 Saturation 97.1 % (94-97) H 10/06/17 09:35 PT/INR, D-dimer PT 10.2 sec (9.0-12.0) 10/06/17 12:15 INR 1.0 (<1.2) 10/06/17 12:15 Abnormal lab findings: Abnormal Labs 10/05/17 10/05/17 10/05/17 16:40 16:40 16:40 RBC 2.78 L Hgb 7.8 L Hct 26.1 L MCHC 29.7 L Lymphocytes # ABG pH ABG pCO2 ABG pO2 ABG HCO3 ABG Total CO2 ABG O2 Saturation Potassium 5.5 H Chloride 114 H Carbon Dioxide <5 L* BUN 111 H* Creatinine 11.80 H* Glucose 171 H POC Glucose (mg/dL) Plasma Lactic Acid Gabriele Calcium 8.2 L Phosphorus 8.4 H* AST Total Creatine Kinase 47 L CK-MB (CK-2) 2.6 H* Troponin I 0.359 H* Total Protein 5.6 L Albumin 3.4 L Urine Protein Urine Ketones Urine Blood Ur Leukocyte Esterase Urine RBC Urine WBC Urine WBC Clumps Urine Bacteria Urine Yeast (Budding) 10/05/17 10/05/17 10/05/17 16:40 17:43 18:25 RBC Hgb Hct MCHC Lymphocytes # ABG pH 7.02 L* ABG pCO2 <15 L* ABG pO2 134 H ABG HCO3 8 L* ABG Total CO2 ABG O2 Saturation 98.2 H Potassium Chloride Carbon Dioxide BUN Creatinine Glucose POC Glucose (mg/dL) Plasma Lactic Acid Gabriele 5.2 H* Calcium Phosphorus AST Total Creatine Kinase CK-MB (CK-2) Troponin I Total Protein Albumin Urine Protein 1+ H Urine Ketones Trace H Urine Blood Small H Ur Leukocyte Esterase Moderate H Urine RBC 11 H Urine WBC 14 H Urine WBC Clumps Few H Urine Bacteria Few H Urine Yeast (Budding) Few H 10/05/17 10/05/17 10/06/17 20:25 23:24 03:55 RBC 2.86 L Hgb 8.3 L Hct 26.4 L MCHC Lymphocytes # 0.7 L ABG pH ABG pCO2 ABG pO2 ABG HCO3 ABG Total CO2 ABG O2 Saturation Potassium Chloride Carbon Dioxide BUN Creatinine Glucose POC Glucose (mg/dL) 251 H Plasma Lactic Acid Gabriele 7.4 H* Calcium Phosphorus AST Total Creatine Kinase CK-MB (CK-2) Troponin I Total Protein Albumin Urine Protein Urine Ketones Urine Blood Ur Leukocyte Esterase Urine RBC Urine WBC Urine WBC Clumps Urine Bacteria Urine Yeast (Budding) 10/06/17 10/06/17 10/06/17 03:55 05:11 07:23 RBC Hgb Hct MCHC Lymphocytes # ABG pH 7.13 L* 7.17 L* ABG pCO2 32 L 34 L ABG pO2 72 L 65 L ABG HCO3 11 L 13 L ABG Total CO2 12 L 14 L ABG O2 Saturation 92.0 L 90.9 L Potassium Chloride 108 H Carbon Dioxide 6 L* BUN 63 H Creatinine 6.87 H* Glucose 210 H POC Glucose (mg/dL) Plasma Lactic Acid Gabriele Calcium 7.8 L Phosphorus 6.1 H AST 90 H Total Creatine Kinase CK-MB (CK-2) Troponin I Total Protein 4.8 L Albumin 2.9 L Urine Protein Urine Ketones Urine Blood Ur Leukocyte Esterase Urine RBC Urine WBC Urine WBC Clumps Urine Bacteria Urine Yeast (Budding) 10/06/17 10/06/17 10/06/17 07:36 09:14 09:14 RBC Hgb Hct MCHC Lymphocytes # ABG pH ABG pCO2 ABG pO2 ABG HCO3 ABG Total CO2 ABG O2 Saturation Potassium Chloride Carbon Dioxide BUN Creatinine Glucose POC Glucose (mg/dL) 316 H Plasma Lactic Acid Gabriele 2.4 H* Calcium Phosphorus AST Total Creatine Kinase CK-MB (CK-2) Troponin I 43.300 H* Total Protein Albumin Urine Protein Urine Ketones Urine Blood Ur Leukocyte Esterase Urine RBC Urine WBC Urine WBC Clumps Urine Bacteria Urine Yeast (Budding) 10/06/17 10/06/17 10/06/17 09:35 12:14 12:15 RBC Hgb Hct MCHC Lymphocytes # ABG pH 7.27 L ABG pCO2 ABG pO2 ABG HCO3 16 L ABG Total CO2 17 L ABG O2 Saturation 97.1 H Potassium 3.2 L Chloride 108 H Carbon Dioxide 14 L BUN 60 H Creatinine 5.40 H* Glucose 272 H POC Glucose (mg/dL) 351 H Plasma Lactic Acid Gabriele Calcium 6.0 L* Phosphorus AST Total Creatine Kinase CK-MB (CK-2) Troponin I Total Protein Albumin Urine Protein Urine Ketones Urine Blood Ur Leukocyte Esterase Urine RBC Urine WBC Urine WBC Clumps Urine Bacteria Urine Yeast (Budding) 10/06/17 13:31 RBC Hgb Hct MCHC Lymphocytes # ABG pH ABG pCO2 ABG pO2 ABG HCO3 ABG Total CO2 ABG O2 Saturation Potassium Chloride Carbon Dioxide BUN Creatinine Glucose POC Glucose (mg/dL) 302 H Plasma Lactic Acid Gabriele Calcium Phosphorus AST Total Creatine Kinase CK-MB (CK-2) Troponin I Total Protein Albumin Urine Protein Urine Ketones Urine Blood Ur Leukocyte Esterase Urine RBC Urine WBC Urine WBC Clumps Urine Bacteria Urine Yeast (Budding) - Diagnostic Findings Chest x-ray: image reviewed (Patchy airspace disease and opacities noted bilaterally mostly in the right perihilar area. I believe the chest x-ray is consistent with fluid overload, cannot rule out underlying pneumonia and this is felt to be less likely.) Assessment and Plan Assessment: Impression: 1 acute hypoxic respiratory failure secondary to severe profound lactic acidosis with significant anion gap metabolic acidosis, strongly suspect related to metformin unless proven otherwise. 2 acute kidney injury, acute tubular necrosis, patient is currently oliguric, hypotensive, hypo-perfusing, and he is requiring hemodialysis. He is also requiring norepinephrine to maintain adequate blood pressure. Also requiring sodium bicarb drip for profound metabolic acidosis again I feel it is most likely related to metformin unless proven otherwise. 3 acute pulmonary edema and fluid overload secondary to renal failure 4 possible underlying pneumonia, hence the patient is empirically on antibiotics , my index of suspicion for pneumonia is rather low. My index of suspicion for sepsis is also low but it is definitely in the differential including sepsis and septic shock. 5 history of coronary artery disease and previous CABG type 2 diabetes, hyperlipidemia, and hypertension. Recommendation: Continue ventilatory support, bicarbonate drip, pressors to maintain adequate blood pressure, nutritional support which will be addressed today or likely in the next 24 hours GI and DVT prophylaxis. Discussed condition with family/2 sons at bedside. Lines were placed including a left internal jugular central line, and a left radial arterial line. We'll continue to follow. Critical care time is 40 minutes not including the time spent on procedures. Time with Patient: Greater than 30
[2017-10-06 14:32] LABS: Glucose,Whole Blood 308 mg/dL (75-99)
[2017-10-06] MEDS: SODIUM CHLORIDE 0.9% 99 ML with VASOPRESSIN 20 UNIT IV SCH ×2 (14:38)
[2017-10-06 14:59] LABS: ABG Base Excess -9.5 mmol/L; ABG HCO3 17 mmol/L (21-25); ABG Oxygen Saturation 98.4 % (94-97); ABG PCO2 38 mmHg (35-45); ABG PH 7.27 (7.35-7.45); ABG PO2 103 mmHg (83-108); ABG TCO2 19 mmol/L (19-24)
[2017-10-06 15:18] LABS: Glucose,Whole Blood 290 mg/dL (75-99)
[2017-10-06 16:16] LABS: Glucose,Whole Blood 254 mg/dL (75-99)
--- NOTE | 2017-10-06 16:19 | P.PN ---
Subjective Progress Note Date: 10/06/17 Principal diagnosis: altered mentation Patient is an 86-year-old male past medical history of diabetes mellitus type 2, hypertension, and coronary artery bypass grafting who presented to the hospital accompanied by his sons due to altered mentation. In the ER he was found to have acute kidney injury with severe metabolic acidosis, lactic acidosis, and life-threatening hyperkalemia. Arrangements were made for emergent dialysis after he received temporizing measures. He was admitted to the ICU. He was also found have a positive troponin. He had no signs of sepsis as his white blood cell count was negative and he did not spike any fevers. He was placed on a bicarb drip secondary to his severe acidosis. Wismer screening mentation and worsening respiratory distress he required elective intubation early on the morning of 10/06. Patient seen and examined at bedside. He is sedated on the ventilator. He is in moderate distress requiring 20 mics of levo fed. He has unresponsive at this time. Nursing present at bedside. We discussed current plan of care. We will recheck lactic acid and troponin with his requiring of pressors and his EKG changes. We'll continue with bicarb drip. If blood sugars remain elevated we will institute insulin drip. Plan is for hemodialysis if patient is able to tolerate with current vasopressor dose. Sons present at bedside. Confirmed no CPR. updated on progress and plan of care. Objective - Vital Signs Vital signs: Vital Signs Temp 98.6 F 10/06/17 12:00 Pulse 101 H 10/06/17 15:53 Resp 23 10/06/17 15:00 BP 116/55 10/06/17 15:00 Pulse Ox 99 10/06/17 15:00 Intake & Output 10/05/17 10/06/17 10/06/17 18:59 06:59 18:59 Intake Total 130.668 2340.940 Output Total 105 22 Balance 271.845 5172.940 Weight 84.368 kg 84.4 kg 82.3 kg Intake: IV 560 1424.0 0.9 at KVO 90 0.9 for pressure bag 24 Calcium Chloride 1,000 mg 100 In Sodium Chloride 0.9% 100 ml @ 100 mls/hr IVPB ONCE STA Rx#:[id number] Dextrose 5% in Water 1, 600 000 ml @ 100 mls/hr IV . [id number] LV with Sodium Bicarb (1 Meq/ml) 150 ml Rx#:[id number] Dextrose 5% in Water 1, 150 000 ml @ 150 mls/hr IV . [id number] LV with Sodium Bicarb (1 Meq/ml) 150 ml Rx#:[id number] Dextrose 5% in Water 1, 560 160 000 ml @ 80 mls/hr IV . [id number] LV with Sodium Bicarb (1 Meq/ml) 150 ml Rx#:[id number] Piperacillin-Tazobactam 3 50.0 .375 gm In Dextrose/Water 1 50ml.bag @ 12.5 mls/hr IVPB Q12HR LV Rx#: [id number] Vancomycin 1,500 mg In 250 Sodium Chloride 0.9% 250 ml @ 125 mls/hr IVPB ONCE ONE Rx#:[id number] Intake, IV Titration 256.578 585.940 Amount Insulin Regular 100 unit 14.561 In Sodium Chloride 0.9% 100 ml @ Per Protocol IV .Q0M LV Rx#:[id number] Norepinephrin 4 mg-0.9% 250.0 Ns Pmx 4 mg In 250 ml @ Titrate IV .Q0M LV Rx#: [id number] Norepinephrine 16 mg In 16.872 Dextrose 5% in Water 250 ml @ Titrate IV .Q0M LV Rx#:[id number] Norepinephrine 4 mg In 208.188 Dextrose 5% in Water 250 ml @ Titrate IV .Q0M LV Rx#:[id number] Norepinephrine 4 mg In 300.125 Dextrose 5% in Water 250 ml @ Titrate IV .Q0M STA Rx#:[id number] Propofol 1,000 mg In 6.578 46.194 Empty Bag 1 bag @ Titrate IV .Q0M LV Rx#: [id number] Output: Gastric Drainage 0 Urine 105 22 Other: Voiding Method Indwelling Catheter Indwelling Catheter ABP, PAP, CO, CI - Last Documented Arterial Blood Pressure 131/50 - Exam General: Ill-appearing, moderate distress, appears at stated age Derm: warm, dry Head: atraumatic, normocephalic, symmetric Eyes: Both pupils equal round and reactive to light, no lip lesion, anicteric sclera Mouth: no lip lesion. ET tube in place Cardiovascular: S1 and S2 tachycardic, no murmur, positive posterior tibial pulse bilateral, Lungs: CTA bilateral, no rhonchi, no rales , no accessory muscle use, sedated on a ventilator Abdominal: soft, nontender to palpation, no guarding, no appreciable organomegaly-Odonnell in place with dark yellow urine Ext: no gross muscle atrophy, no edema, no contractures Neuro: Sedated on vent Psych: Sedated on vent - Labs CBC & Chem 7: 10/06/17 03:55 10/06/17 12:15 Labs: Abnormal Lab Results - Last 24 Hours (Table) 10/05/17 10/05/17 10/05/17 Range/Units 16:40 16:40 16:40 RBC 2.78 L (4.30-5.90) m/uL Hgb 7.8 L (13.0-17.5) gm/dL Hct 26.1 L (39.0-53.0) % MCHC 29.7 L (31.0-37.0) g/dL Lymphocytes # (1.0-4.8) k/uL ABG pH (7.35-7.45) ABG pCO2 (35-45) mmHg ABG pO2 (83-108) mmHg ABG HCO3 (21-25) mmol/L ABG Total CO2 (19-24) mmol/L ABG O2 Saturation (94-97) % Potassium 5.5 H (3.5-5.1) mmol/L Chloride 114 H (98-107) mmol/L Carbon Dioxide <5 L* (22-30) mmol/L BUN 111 H* (9-20) mg/dL Creatinine 11.80 H* (0.66-1.25) mg/dL Glucose 171 H (74-99) mg/dL POC Glucose (mg/dL) (75-99) mg/dL Plasma Lactic Acid Gabriele (0.7-2.0) mmol/L Calcium 8.2 L (8.4-10.2) mg/dL Phosphorus 8.4 H* (2.5-4.5) mg/dL AST (17-59) U/L Total Creatine Kinase 47 L (55-170) U/L CK-MB (CK-2) 2.6 H* (0.0-2.4) ng/mL Troponin I 0.359 H* (0.000-0.034) ng/mL Total Protein 5.6 L (6.3-8.2) g/dL Albumin 3.4 L (3.5-5.0) g/dL Urine Protein (Negative) Urine Ketones (Negative) Urine Blood (Negative) Ur Leukocyte Esterase (Negative) Urine RBC (0-5) /hpf Urine WBC (0-5) /hpf Urine WBC Clumps (None) /hpf Urine Bacteria (None) /hpf Urine Yeast (Budding) (None) /hpf 10/05/17 10/05/17 10/05/17 Range/Units 16:40 17:43 18:25 RBC (4.30-5.90) m/uL Hgb (13.0-17.5) gm/dL Hct (39.0-53.0) % MCHC (31.0-37.0) g/dL Lymphocytes # (1.0-4.8) k/uL ABG pH 7.02 L* (7.35-7.45) ABG pCO2 <15 L* (35-45) mmHg ABG pO2 134 H (83-108) mmHg ABG HCO3 8 L* (21-25) mmol/L ABG Total CO2 (19-24) mmol/L ABG O2 Saturation 98.2 H (94-97) % Potassium (3.5-5.1) mmol/L Chloride (98-107) mmol/L Carbon Dioxide (22-30) mmol/L BUN (9-20) mg/dL Creatinine (0.66-1.25) mg/dL Glucose (74-99) mg/dL POC Glucose (mg/dL) (75-99) mg/dL Plasma Lactic Acid Gabriele 5.2 H* (0.7-2.0) mmol/L Calcium (8.4-10.2) mg/dL Phosphorus (2.5-4.5) mg/dL AST (17-59) U/L Total Creatine Kinase (55-170) U/L CK-MB (CK-2) (0.0-2.4) ng/mL Troponin I (0.000-0.034) ng/mL Total Protein (6.3-8.2) g/dL Albumin (3.5-5.0) g/dL Urine Protein 1+ H (Negative) Urine Ketones Trace H (Negative) Urine Blood Small H (Negative) Ur Leukocyte Esterase Moderate H (Negative) Urine RBC 11 H (0-5) /hpf Urine WBC 14 H (0-5) /hpf Urine WBC Clumps Few H (None) /hpf Urine Bacteria Few H (None) /hpf Urine Yeast (Budding) Few H (None) /hpf 10/05/17 10/05/17 10/06/17 Range/Units 20:25 23:24 03:55 RBC 2.86 L (4.30-5.90) m/uL Hgb 8.3 L (13.0-17.5) gm/dL Hct 26.4 L (39.0-53.0) % MCHC (31.0-37.0) g/dL Lymphocytes # 0.7 L (1.0-4.8) k/uL ABG pH (7.35-7.45) ABG pCO2 (35-45) mmHg ABG pO2 (83-108) mmHg ABG HCO3 (21-25) mmol/L ABG Total CO2 (19-24) mmol/L ABG O2 Saturation (94-97) % Potassium (3.5-5.1) mmol/L Chloride (98-107) mmol/L Carbon Dioxide (22-30) mmol/L BUN (9-20) mg/dL Creatinine (0.66-1.25) mg/dL Glucose (74-99) mg/dL POC Glucose (mg/dL) 251 H (75-99) mg/dL Plasma Lactic Acid Gabriele 7.4 H* (0.7-2.0) mmol/L Calcium (8.4-10.2) mg/dL Phosphorus (2.5-4.5) mg/dL AST (17-59) U/L Total Creatine Kinase (55-170) U/L CK-MB (CK-2) (0.0-2.4) ng/mL Troponin I (0.000-0.034) ng/mL Total Protein (6.3-8.2) g/dL Albumin (3.5-5.0) g/dL Urine Protein (Negative) Urine Ketones (Negative) Urine Blood (Negative) Ur Leukocyte Esterase (Negative) Urine RBC (0-5) /hpf Urine WBC (0-5) /hpf Urine WBC Clumps (None) /hpf Urine Bacteria (None) /hpf Urine Yeast (Budding) (None) /hpf 10/06/17 10/06/17 10/06/17 Range/Units 03:55 05:11 07:23 RBC (4.30-5.90) m/uL Hgb (13.0-17.5) gm/dL Hct (39.0-53.0) % MCHC (31.0-37.0) g/dL Lymphocytes # (1.0-4.8) k/uL ABG pH 7.13 L* 7.17 L* (7.35-7.45) ABG pCO2 32 L 34 L (35-45) mmHg ABG pO2 72 L 65 L (83-108) mmHg ABG HCO3 11 L 13 L (21-25) mmol/L ABG Total CO2 12 L 14 L (19-24) mmol/L ABG O2 Saturation 92.0 L 90.9 L (94-97) % Potassium (3.5-5.1) mmol/L Chloride 108 H (98-107) mmol/L Carbon Dioxide 6 L* (22-30) mmol/L BUN 63 H (9-20) mg/dL Creatinine 6.87 H* (0.66-1.25) mg/dL Glucose 210 H (74-99) mg/dL POC Glucose (mg/dL) (75-99) mg/dL Plasma Lactic Acid Gabriele (0.7-2.0) mmol/L Calcium 7.8 L (8.4-10.2) mg/dL Phosphorus 6.1 H (2.5-4.5) mg/dL AST 90 H (17-59) U/L Total Creatine Kinase (55-170) U/L CK-MB (CK-2) (0.0-2.4) ng/mL Troponin I (0.000-0.034) ng/mL Total Protein 4.8 L (6.3-8.2) g/dL Albumin 2.9 L (3.5-5.0) g/dL Urine Protein (Negative) Urine Ketones (Negative) Urine Blood (Negative) Ur Leukocyte Esterase (Negative) Urine RBC (0-5) /hpf Urine WBC (0-5) /hpf Urine WBC Clumps (None) /hpf Urine Bacteria (None) /hpf Urine Yeast (Budding) (None) /hpf 10/06/17 10/06/17 10/06/17 Range/Units 07:36 09:14 09:14 RBC (4.30-5.90) m/uL Hgb (13.0-17.5) gm/dL Hct (39.0-53.0) % MCHC (31.0-37.0) g/dL Lymphocytes # (1.0-4.8) k/uL ABG pH (7.35-7.45) ABG pCO2 (35-45) mmHg ABG pO2 (83-108) mmHg ABG HCO3 (21-25) mmol/L ABG Total CO2 (19-24) mmol/L ABG O2 Saturation (94-97) % Potassium (3.5-5.1) mmol/L Chloride (98-107) mmol/L Carbon Dioxide (22-30) mmol/L BUN (9-20) mg/dL Creatinine (0.66-1.25) mg/dL Glucose (74-99) mg/dL POC Glucose (mg/dL) 316 H (75-99) mg/dL Plasma Lactic Acid Gabriele 2.4 H* (0.7-2.0) mmol/L Calcium (8.4-10.2) mg/dL Phosphorus (2.5-4.5) mg/dL AST (17-59) U/L Total Creatine Kinase (55-170) U/L CK-MB (CK-2) (0.0-2.4) ng/mL Troponin I 43.300 H* (0.000-0.034) ng/mL Total Protein (6.3-8.2) g/dL Albumin (3.5-5.0) g/dL Urine Protein (Negative) Urine Ketones (Negative) Urine Blood (Negative) Ur Leukocyte Esterase (Negative) Urine RBC (0-5) /hpf Urine WBC (0-5) /hpf Urine WBC Clumps (None) /hpf Urine Bacteria (None) /hpf Urine Yeast (Budding) (None) /hpf 10/06/17 10/06/17 10/06/17 Range/Units 09:35 12:14 12:15 RBC (4.30-5.90) m/uL Hgb (13.0-17.5) gm/dL Hct (39.0-53.0) % MCHC (31.0-37.0) g/dL Lymphocytes # (1.0-4.8) k/uL ABG pH 7.27 L (7.35-7.45) ABG pCO2 (35-45) mmHg ABG pO2 (83-108) mmHg ABG HCO3 16 L (21-25) mmol/L ABG Total CO2 17 L (19-24) mmol/L ABG O2 Saturation 97.1 H (94-97) % Potassium 3.2 L (3.5-5.1) mmol/L Chloride 108 H (98-107) mmol/L Carbon Dioxide 14 L (22-30) mmol/L BUN 60 H (9-20) mg/dL Creatinine 5.40 H* (0.66-1.25) mg/dL Glucose 272 H (74-99) mg/dL POC Glucose (mg/dL) 351 H (75-99) mg/dL Plasma Lactic Acid Gabriele (0.7-2.0) mmol/L Calcium 6.0 L* (8.4-10.2) mg/dL Phosphorus (2.5-4.5) mg/dL AST (17-59) U/L Total Creatine Kinase (55-170) U/L CK-MB (CK-2) (0.0-2.4) ng/mL Troponin I (0.000-0.034) ng/mL Total Protein (6.3-8.2) g/dL Albumin (3.5-5.0) g/dL Urine Protein (Negative) Urine Ketones (Negative) Urine Blood (Negative) Ur Leukocyte Esterase (Negative) Urine RBC (0-5) /hpf Urine WBC (0-5) /hpf Urine WBC Clumps (None) /hpf Urine Bacteria (None) /hpf Urine Yeast (Budding) (None) /hpf 10/06/17 10/06/17 10/06/17 Range/Units 13:31 13:35 14:31 RBC (4.30-5.90) m/uL Hgb (13.0-17.5) gm/dL Hct (39.0-53.0) % MCHC (31.0-37.0) g/dL Lymphocytes # (1.0-4.8) k/uL ABG pH (7.35-7.45) ABG pCO2 (35-45) mmHg ABG pO2 (83-108) mmHg ABG HCO3 (21-25) mmol/L ABG Total CO2 (19-24) mmol/L ABG O2 Saturation (94-97) % Potassium (3.5-5.1) mmol/L Chloride (98-107) mmol/L Carbon Dioxide (22-30) mmol/L BUN (9-20) mg/dL Creatinine (0.66-1.25) mg/dL Glucose (74-99) mg/dL POC Glucose (mg/dL) 302 H 308 H (75-99) mg/dL Plasma Lactic Acid Gabriele 3.5 H* (0.7-2.0) mmol/L Calcium (8.4-10.2) mg/dL Phosphorus (2.5-4.5) mg/dL AST (17-59) U/L Total Creatine Kinase (55-170) U/L CK-MB (CK-2) (0.0-2.4) ng/mL Troponin I (0.000-0.034) ng/mL Total Protein (6.3-8.2) g/dL Albumin (3.5-5.0) g/dL Urine Protein (Negative) Urine Ketones (Negative) Urine Blood (Negative) Ur Leukocyte Esterase (Negative) Urine RBC (0-5) /hpf Urine WBC (0-5) /hpf Urine WBC Clumps (None) /hpf Urine Bacteria (None) /hpf Urine Yeast (Budding) (None) /hpf 10/06/17 10/06/17 Range/Units 14:57 15:16 RBC (4.30-5.90) m/uL Hgb (13.0-17.5) gm/dL Hct (39.0-53.0) % MCHC (31.0-37.0) g/dL Lymphocytes # (1.0-4.8) k/uL ABG pH 7.27 L (7.35-7.45) ABG pCO2 (35-45) mmHg ABG pO2 (83-108) mmHg ABG HCO3 17 L (21-25) mmol/L ABG Total CO2 (19-24) mmol/L ABG O2 Saturation 98.4 H (94-97) % Potassium (3.5-5.1) mmol/L Chloride (98-107) mmol/L Carbon Dioxide (22-30) mmol/L BUN (9-20) mg/dL Creatinine (0.66-1.25) mg/dL Glucose (74-99) mg/dL POC Glucose (mg/dL) 290 H (75-99) mg/dL Plasma Lactic Acid Gabriele (0.7-2.0) mmol/L Calcium (8.4-10.2) mg/dL Phosphorus (2.5-4.5) mg/dL AST (17-59) U/L Total Creatine Kinase (55-170) U/L CK-MB (CK-2) (0.0-2.4) ng/mL Troponin I (0.000-0.034) ng/mL Total Protein (6.3-8.2) g/dL Albumin (3.5-5.0) g/dL Urine Protein (Negative) Urine Ketones (Negative) Urine Blood (Negative) Ur Leukocyte Esterase (Negative) Urine RBC (0-5) /hpf Urine WBC (0-5) /hpf Urine WBC Clumps (None) /hpf Urine Bacteria (None) /hpf Urine Yeast (Budding) (None) /hpf Microbiology - Last 24 Hours (Table) 10/06/17 04:44 Gram Stain - Preliminary Sputum Sputum Culture - Preliminary 10/05/17 18:25 Urine Culture - Preliminary Urine,Catheterized Assessment and Plan Assessment: Acute kidney injury with metabolic acidosis and severe life-threatening hyperkalemia -Status post emergent dialysis -D5W with 3 A of sodium bicarb drip -Nephrology recommendations -Renal ultrasound pending -Plan is for repeat HD today if patient can tolerate -Hold glimepiride, metformin -No nephrotoxic agents noted on home medications Acute hypoxic respiratory failure -Likely secondary to severe metabolic acidosis and altered mentation -Continue with ventilator support -Critical care consult Toxic metabolic encephalopathy -Status post intubation -Likely secondary to renal failure -Continue with supportive measures Diabetes mellitus type 2 with hyperglycemia -Continue a sliding scale insulin, and initiate insulin drip if blood sugars continue to be greater than 300 -Check hemoglobin A1c -Old oral hypoglycemics Normocytic anemia -Unknown baseline -Serial CBCs -If continues downtrending and initiate anemia workup Lactic acidosis -Status post IV fluid resuscitation -Likely will stay elevated secondary to renal failure -No signs of underlying sepsis with normal temperature and normal white blood cell count -Concerns for possible underlying pneumonia expressed by critical care and patient has been started on Zosyn and vancomycin Elevated troponin was signs of cardiac ischemia on EKG -Repeat troponin -Continue vasopressors -Telemetry monitoring HTN - now hypotensive and on vasopressor, hold home medications DVT prophylaxis: Lovenox Discussed with: Patient's family, ICU nursing Anticipated discharge: undetermined Anticipated discharge place: undetermined A total of 65 minutes was spent on the care of this complex patient more than 50 % of the time was spent in counseling and care coordination.
--- NOTE | 2017-10-06 16:25 | P.PN ---
Progress Note - Text Progress Note Date: 10/06/17 Hospitalist interval note: Family update. Patient has progressed throughout the day. His repeat troponin came back positive at 44. He was placed on a heparin drip by cardiology. He has required increasing doses of levothyroid and is currently at 50 with vasopressin being added. Are going to attempt hemodialysis. Awaiting cardiology consult by have discussed case with travel registered nurse nicu. He has also had increasing lactic acidosis. Minimal urine output. At current heart rate patient is not a candidate for transition to dopamine or dobutamine drip. Also not a candidate for a balloon pump. D/w sons patients deterioration throughout the day. Requiring increasing pressors and indications of a significant myocardial infarction. They do not believe that there father would want to be kept alive for only a few days and then likley pass away, he would not want be keep alive and then have significant disfunction. We agreed to not incresae the levophed past 60 mcg/min they will speak with their mother regarding DNR status. They will also consider comfort care at this time should is condition worsen. ARNOLDO Salcedo confirmed with son that she has their cell phone numbers and that we will call if things worsen. Plan is for them to go and speak with their mother to determine how long we should maintain aggressive care.
--- NOTE | 2017-10-06 16:57 | P.CRDCN ---
History of Present Illness Consult date: 10/06/17 Chief complaint: change in mental status History of present illness: This is an 86-year-old gentleman who I was asked to see for acute non-ST elevation myocardial infarction. Currently the patient is intubated and he is on ventilator and it seems that he is in cardiogenic shock. The patient has not been feeding well for a week. For the last 48 hours before he presented to the emergency room the family noticed a change in mental status. Because of that he was brought to the emergency room. No indication of any chest pain or chest discomfort nor shortness of breath. In the ER the patient was in acute respiratory distress. Also he was found to be in acute renal failure with creatinine of about 10. An emergency dialysis was performed. Subsequently the patient was intubated and was transferred to the intensive care unit. The initial troponin came in to be less than 1 but the subsequent troponin came in to be around 40. The initial EKG showed sinus rhythm with ST segment elevation in aVR and diffuse ST segment depression. Finding consistent with severe triple-vessel or left main coronary artery. Currently the patient is intubated and he is on ventilator. He is in shock where he is requiring vasopressors at high dose and levo at high dose as well. He is not making any urine. Another dialysis was scheduled for today but the patient is hypotensive and because of that the dialysis was canceled. He is also in congestive heart failure. The patient does have history of coronary artery disease and he underwent CABG. The details on that are unknown. Past Medical History Past Medical History: Diabetes Mellitus, Hyperlipidemia, Hypertension History of Any Multi-Drug Resistant Organisms: None Reported Past Surgical History: Unable to Obtain Additional Past Surgical History / Comment(s): CABGx4 in 1990, kidney stone removal x2 Past Psychological History: No Psychological Hx Reported Smoking Status: Never smoker Past Alcohol Use History: None Reported Past Drug Use History: None Reported - Past Family History Family Additional Family Medical History / Comment(s): Unable to obtain Medications and Allergies Home Medications Medication Instructions Recorded Confirmed Type Atorvastatin [Lipitor] 80 mg PO HS 10/05/17 10/05/17 History Finasteride [Proscar] 5 mg PO DAILY 10/05/17 10/05/17 History Glimepiride [Amaryl] 2 mg PO [id number] 10/05/17 10/05/17 History Metoprolol Tartrate [Lopressor] 50 mg PO BID 10/05/17 10/05/17 History amLODIPine [Norvasc] 5 mg PO DAILY 10/05/17 10/05/17 History metFORMIN HCL [Glucophage] 850 mg PO TID 10/05/17 10/05/17 History Allergies Allergy/AdvReac Type Severity Reaction Status Date / Time No Known Allergies Allergy Unverified 10/05/17 17:06 Physical Exam Vitals: Vital Signs Temp Pulse Resp BP Pulse Ox 10/06/17 16:15 105 H 20 131/66 98 10/06/17 16:09 103 H 10/06/17 16:00 97.8 F 102 H 21 131/66 98 10/06/17 15:53 101 H 10/06/17 15:45 98 22 131/66 98 10/06/17 15:30 103 H 23 116/55 97 10/06/17 15:15 101 H 20 116/55 99 10/06/17 15:00 99 23 116/55 99 10/06/17 14:45 99 22 116/55 99 10/06/17 14:30 99 21 116/55 98 10/06/17 14:15 101 H 20 127/58 98 10/06/17 14:00 99 22 127/58 98 10/06/17 13:45 105 H 20 127/58 97 10/06/17 13:30 105 H 24 127/58 97 10/06/17 13:15 101 H 20 127/58 99 10/06/17 13:00 95 23 127/58 100 10/06/17 12:45 96 20 127/58 100 10/06/17 12:30 94 20 127/58 100 10/06/17 12:15 94 24 137/59 100 10/06/17 12:09 93 10/06/17 12:00 98.6 F 94 20 137/59 100 10/06/17 11:48 99 10/06/17 11:45 94 20 137/59 100 10/06/17 11:30 100 20 137/59 100 10/06/17 11:15 98 20 137/59 100 10/06/17 11:00 103 H 24 137/59 100 10/06/17 10:50 103 H 24 98 10/06/17 10:40 100 24 98 10/06/17 10:30 98 20 93 L 10/06/17 10:20 92 23 98 10/06/17 10:10 87 20 120/52 100 10/06/17 10:00 90 24 75/49 100 10/06/17 09:50 92 20 63/41 100 10/06/17 09:40 94 20 77/38 100 10/06/17 09:30 96 20 103/50 100 10/06/17 09:20 99 24 109/50 100 10/06/17 09:10 92 20 121/63 100 10/06/17 09:00 89 20 134/58 100 10/06/17 08:50 88 20 117/48 100 10/06/17 08:40 87 21 100/50 100 10/06/17 08:30 86 20 113/52 100 10/06/17 08:22 89 10/06/17 08:00 98.1 F 87 21 91/48 100 10/06/17 07:30 88 23 107/48 95 10/06/17 07:00 89 21 97/48 95 10/06/17 06:30 96 22 99/46 94 L 10/06/17 06:00 97 20 95/46 95 10/06/17 05:30 102 H 26 H 93/41 95 10/06/17 05:00 98 F 101 H 25 H 80/46 92 L 10/06/17 04:30 118 H 36 H 104/49 89 L 10/06/17 04:00 113 H 33 H 97/45 95 10/06/17 03:30 93 29 H 113/57 93 L 10/06/17 03:00 95 31 H 127/58 99 10/06/17 02:30 86 32 H 105/54 95 10/06/17 02:00 83 31 H 93/51 94 L 10/06/17 01:30 79 24 98/54 96 10/06/17 01:00 79 20 81/49 98 10/06/17 00:30 88 22 65/43 99 10/06/17 00:00 80 19 89/42 99 10/05/17 23:43 94.5 F L 81 17 99/50 98 10/05/17 22:59 86 30 H 98/53 100 10/05/17 21:24 92 25 H 107/54 93 L 06/30/18 21:11 95 10/05/17 21:00 89 24 117/56 95 10/05/17 20:37 85 26 H 122/58 97 10/05/17 20:25 98 26 H 99/55 93 L 10/05/17 19:51 89 26 H 95/51 94 L 10/05/17 19:07 26 H 95 10/05/17 19:00 90 20 101/56 99 Intake and Output 10/06/17 10/06/17 10/06/17 06:59 14:59 22:59 Intake Total 480.920 3502.940 368.061 Output Total 45 22 100 Balance 137.971 4658.940 268.061 Intake: IV 560 1308.0 232 0.9 at KVO 80 20 0.9 for pressure bag 18 12 Calcium Chloride 1,000 mg 100 In Sodium Chloride 0.9% 100 ml @ 100 mls/hr IVPB ONCE STA Rx#:[id number] Dextrose 5% in Water 1, 500 200 000 ml @ 100 mls/hr IV . [id number] LV with Sodium Bicarb (1 Meq/ml) 150 ml Rx#:[id number] Dextrose 5% in Water 1, 150 000 ml @ 150 mls/hr IV . Q7H40M LV with Sodium Bicarb (1 Meq/ml) 150 ml Rx#:[id number] Dextrose 5% in Water 1, 560 160 000 ml @ 80 mls/hr IV . [id number] LV with Sodium Bicarb (1 Meq/ml) 150 ml Rx#:[id number] Piperacillin-Tazobactam 3 50.0 .375 gm In Dextrose/Water 1 50ml.bag @ 12.5 mls/hr IVPB Q12HR LV Rx#: [id number] Vancomycin 1,500 mg In 250 Sodium Chloride 0.9% 250 ml @ 125 mls/hr IVPB ONCE ONE Rx#:[id number] Intake, IV Titration 256.578 585.940 136.061 Amount Insulin Regular 100 unit 14.561 11.154 In Sodium Chloride 0.9% 100 ml @ Per Protocol IV .Q0M LV Rx#:[id number] Norepinephrin 4 mg-0.9% 250.0 Ns Pmx 4 mg In 250 ml @ Titrate IV .Q0M LV Rx#: [id number] Norepinephrine 16 mg In 16.872 124.907 Dextrose 5% in Water 250 ml @ Titrate IV .Q0M LV Rx#:[id number] Norepinephrine 4 mg In 208.188 Dextrose 5% in Water 250 ml @ Titrate IV .Q0M LV Rx#:[id number] Norepinephrine 4 mg In 300.125 Dextrose 5% in Water 250 ml @ Titrate IV .Q0M STA Rx#:[id number] Propofol 1,000 mg In 6.578 46.194 Empty Bag 1 bag @ Titrate IV .Q0M [facility] Rx#: [id number] Output: Gastric Drainage 0 100 Urine 45 22 0 Other: Voiding Method Indwelling Catheter Indwelling Catheter Weight 82.3 kg ABP, PAP, CO, CI - Last 8 Hours Arterial Blood Pressure 126/51 Arterial Blood Pressure 124/50 Arterial Blood Pressure 125/49 Arterial Blood Pressure 88/39 Arterial Blood Pressure 136/53 Arterial Blood Pressure 131/50 Arterial Blood Pressure 115/48 Arterial Blood Pressure 109/47 Arterial Blood Pressure 86/40 Arterial Blood Pressure 91/42 Arterial Blood Pressure 96/41 Arterial Blood Pressure 119/48 Arterial Blood Pressure 99/44 Arterial Blood Pressure 115/48 Arterial Blood Pressure 114/48 Arterial Blood Pressure 100/47 Arterial Blood Pressure 98/46 Arterial Blood Pressure 93/43 Arterial Blood Pressure 89/48 Arterial Blood Pressure 114/74 Arterial Blood Pressure 148/59 Arterial Blood Pressure 168/76 Arterial Blood Pressure 123/47 Arterial Blood Pressure 156/55 - Constitutional General appearance: no acute distress - Respiratory Respiratory: bilateral: diminished - Cardiovascular Rhythm: regular Heart sounds: normal: S1, S2 Results 10/06/17 03:55 10/06/17 12:15 Cardiac Enzymes 10/05/17 10/05/17 10/06/17 Range/Units 16:40 16:40 03:55 AST 18 90 H (17-59) U/L CK-MB (CK-2) 2.6 H* (0.0-2.4) ng/mL Troponin I 0.359 H* (0.000-0.034) ng/mL 10/06/17 Range/Units 09:14 AST (17-59) U/L CK-MB (CK-2) (0.0-2.4) ng/mL Troponin I 43.300 H* (0.000-0.034) ng/mL Coagulation 10/05/17 10/06/17 10/06/17 Range/Units 16:40 12:15 12:15 PT 9.7 10.2 (9.0-12.0) sec APTT 26.4 28.0 (22.0-30.0) sec CBC 10/05/17 10/06/17 Range/Units 16:40 03:55 WBC 5.9 6.6 (3.8-10.6) k/uL RBC 2.78 L 2.86 L (4.30-5.90) m/uL Hgb 7.8 L 8.3 L (13.0-17.5) gm/dL Hct 26.1 L 26.4 L (39.0-53.0) % Plt Count 222 183 (150-450) k/uL Comprehensive Metabolic Panel 10/05/17 10/06/17 10/06/17 Range/Units 16:40 03:55 12:15 Sodium 141 142 138 (137-145) mmol/L Potassium 5.5 H 4.1 3.2 L (3.5-5.1) mmol/L Chloride 114 H 108 H 108 H (98-107) mmol/L Carbon Dioxide <5 L* 6 L* 14 L (22-30) mmol/L BUN 111 H* 63 H 60 H (9-20) mg/dL Creatinine 11.80 H* 6.87 H* 5.40 H* (0.66-1.25) mg/dL Glucose 171 H 210 H 272 H (74-99) mg/dL Calcium 8.2 L 7.8 L 6.0 L* (8.4-10.2) mg/dL AST 18 90 H (17-59) U/L ALT 21 31 (21-72) U/L Alkaline Phosphatase 93 95 (38-126) U/L Total Protein 5.6 L 4.8 L (6.3-8.2) g/dL Albumin 3.4 L 2.9 L (3.5-5.0) g/dL Current Medications Generic Name Dose Route Start Last Admin Trade Name Freq PRN Reason Stop Dose Admin Albuterol/Ipratropium 3 ml 10/06/17 08:00 10/06/17 15:53 Duoneb 0.5 Mg-3 Mg/3 Ml Soln INHALATION 3 ml RT-QID LV Administration Chlorhexidine Gluconate 15 ml 10/06/17 09:00 10/06/17 08:59 Peridex MUCOUS MEM 15 ml BID LV Administration Finasteride 5 mg 10/07/17 09:00 Proscar PO DAILY LV Heparin Sodium (Porcine) 0 unit 10/06/17 12:20 Heparin IV PER PROTOCOL PRN Low PTT Protocol Piperacillin/Tazobactam/ 50 mls @ 12.5 mls/hr 10/06/17 10:00 10/06/17 10:30 Dextrose 3.375 gm/ IV Solution IVPB 12.5 mls/hr Q12HR LV Administration Sodium Bicarbonate 150 ml/ 1,150 mls @ 100 mls/hr 10/06/17 09:45 10/06/17 09: 58 Dextrose/Water IV Not Given .[id number] LV Vancomycin HCl 1,500 mg/ 250 mls @ 125 mls/hr 10/07/17 09:00 Sodium Chloride IVPB 10/07/17 10:59 ONCE ONE Propofol 1,000 mg/ IV Solution 100 mls @ 0 mls/hr 10/06/17 11:15 10/06/17 11: 14 IV 25 mcg/kg/min .Q0M LV 12.34 mls/hr Administration Protocol Titrate Norepinephrine Bitartrate 16 250 mls @ 0 mls/hr 10/06/17 11:45 10/06/17 16:47 mg/ Dextrose/Water IV 55 mcg/min .Q0M LV 51.56 mls/hr Titration Protocol Titrate Heparin Sodium/Sodium Chloride 500 mls @ 19.75 mls/hr 10/06/17 12:30 12:39 25,000 unit/ Sodium Chloride IV 12 units/kg/hr .Q24H LV 19.75 mls/hr Administration Protocol 12 UNITS/KG/HR Insulin Human Regular 100 unit 101 mls @ 0 mls/hr 10/06/17 12:45 10/06/17 16: 16 / Sodium Chloride IV 6.5 unit/hr .Q0M LV 6.56 mls/hr Titration Protocol Per Protocol Vasopressin 20 unit/ Sodium 100 mls @ 9 mls/hr 10/06/17 14:15 10/06/17 14:38 Chloride IV 9 mls/hr .Q11H7M LV Administration 0.03 UNITS/MIN Lorazepam 1 mg 10/06/17 00:20 Ativan IV Q6HR PRN Anxiety Miscellaneous Information 1 each 10/06/17 09:41 Pharmacy To Dose Iv Vancomycin MISCELLANE DIRECTED PRN Per Protocol Naloxone HCl 0.2 mg 10/05/17 20:40 Narcan IV Q2M PRN Opioid Reversal Pantoprazole Sodium 40 mg 10/06/17 09:15 10/06/17 10:30 Protonix IVP 40 mg DAILY LV Administration Intake and Output 10/06/17 10/06/17 10/06/17 06:59 14:59 22:59 Intake Total 147.129 9709.940 368.061 Output Total 45 22 100 Balance 431.231 5641.940 268.061 Intake: IV 560 1308.0 232 0.9 at KVO 80 20 0.9 for pressure bag 18 12 Calcium Chloride 1,000 mg 100 In Sodium Chloride 0.9% 100 ml @ 100 mls/hr IVPB ONCE STA Rx#:[id number] Dextrose 5% in Water 1, 500 200 000 ml @ 100 mls/hr IV . [id number] LV with Sodium Bicarb (1 Meq/ml) 150 ml Rx#:[id number] Dextrose 5% in Water 1, 150 000 ml @ 150 mls/hr IV . Q7H40M LV with Sodium Bicarb (1 Meq/ml) 150 ml Rx#:[id number] Dextrose 5% in Water 1, 560 160 000 ml @ 80 mls/hr IV . [id number] LV with Sodium Bicarb (1 Meq/ml) 150 ml Rx#:[id number] Piperacillin-Tazobactam 3 50.0 .375 gm In Dextrose/Water 1 50ml.bag @ 12.5 mls/hr IVPB Q12HR LV Rx#: [id number] Vancomycin 1,500 mg In 250 Sodium Chloride 0.9% 250 ml @ 125 mls/hr IVPB ONCE ONE Rx#:[id number] Intake, IV Titration 256.578 585.940 136.061 Amount Insulin Regular 100 unit 14.561 11.154 In Sodium Chloride 0.9% 100 ml @ Per Protocol IV .Q0M LV Rx#:[id number] Norepinephrin 4 mg-0.9% 250.0 Ns Pmx 4 mg In 250 ml @ Titrate IV .Q0M [facility] Rx#: [id number] Norepinephrine 16 mg In 16.872 124.907 Dextrose 5% in Water 250 ml @ Titrate IV .Q0M [facility] Rx#:[id number] Norepinephrine 4 mg In 208.188 Dextrose 5% in Water 250 ml @ Titrate IV .Q0M LV Rx#:[id number] Norepinephrine 4 mg In 300.125 Dextrose 5% in Water 250 ml @ Titrate IV .Q0M STA Rx#:[id number] Propofol 1,000 mg In 6.578 46.194 Empty Bag 1 bag @ Titrate IV .Q0M [facility] Rx#: [id number] Output: Gastric Drainage 0 100 Urine 45 22 0 Other: Voiding Method Indwelling Catheter Indwelling Catheter Weight 82.3 kg Patient Weight 10/07/17 06:59 Weight 82.3 kg 10/06/17 03:55 10/06/17 12:15 Assessment and Plan Assessment: assessment #1 acute coronary event. #2 cardiogenic shock #3 acute renal failure #4 congestive heart failure and known if still to systolic or diastole dysfunction #5 multiple I organ failure #6 multiple comorbid conditions Plan #1 continue supporting the blood pressure. Currently the patient is on 2 vasopressors at high dose #2 we cannot give the patient any diuretics in view of low blood pressure #3 obtain 2 more sets of serial cardiac enzymes to assess the troponin trend #4 add aspirin to the current medical treatment #5 obtain an echocardiogram was Doppler #6 follow-up with the patient. Overall the prognosis is very poor.
[2017-10-06 16:58] LABS: Glucose,Whole Blood 243 mg/dL (75-99)
[2017-10-06] MEDS: ASPIRIN 81 MG OG-TUBE SCH (17:23)
[2017-10-06 18:05] LABS: Glucose,Whole Blood 264 mg/dL (75-99)
[2017-10-06 18:53] LABS: Glucose,Whole Blood 209 mg/dL (75-99)
[2017-10-06 19:51] LABS: Glucose,Whole Blood 175 mg/dL (75-99)
[2017-10-06 21:13] LABS: Glucose,Whole Blood 159 mg/dL (75-99)
[2017-10-06 21:52] LABS: Glucose,Whole Blood 153 mg/dL (75-99)
[2017-10-06 22:55] LABS: Glucose,Whole Blood 152 mg/dL (75-99)
[2017-10-06 23:59] LABS: Glucose,Whole Blood 134 mg/dL (75-99)
[2017-10-07] MEDS: NOREPINEPHRINE 16 MG in DEXTROSE 5% IN WATER 250 ML IV SCH ×6 (00:07→19:27)
[2017-10-07] MEDS: SODIUM CHLORIDE 0.9% 99 ML with VASOPRESSIN 20 UNIT IV SCH ×6 (00:39→20:25)
[2017-10-07 01:02] LABS: Glucose,Whole Blood 181 mg/dL (75-99)
[2017-10-07 01:02] LABS: Glucose,Whole Blood 172 mg/dL (75-99)
[2017-10-07 02:05] LABS: Glucose,Whole Blood 207 mg/dL (75-99)
[2017-10-07 03:09] LABS: Glucose,Whole Blood 167 mg/dL (75-99)
[2017-10-07 04:09] LABS: Glucose,Whole Blood 169 mg/dL (75-99)
[2017-10-07] MEDS: PROPOFOL 1,000 MG in EMPTY BAG 1 BAG IV SCH ×4 (04:50→18:56)
[2017-10-07 05:02] LABS: Glucose,Whole Blood 185 mg/dL (75-99)
[2017-10-07 05:02] LABS: Glucose,Whole Blood 200 mg/dL (75-99)
[2017-10-07 05:19] LABS: HCT 21.9 % (39.0-53.0); HGB 7.5 gm/dL (13.0-17.5); MCH 29.2 pg (25.0-35.0); MCHC 34.1 g/dL (31.0-37.0); Mean Platelet Volume 8.5; Platelet Count 166 k/uL (150-450); RBC 2.56 m/uL (4.30-5.90); WBC 11.5 k/uL (3.8-10.6)
[2017-10-07 05:28] LABS: MCV 85.7 fL (80.0-100.0)
[2017-10-07 05:52] LABS: Calcium 6.8 mg/dL (8.4-10.2); Potassium 3.2 mmol/L (3.5-5.1)
[2017-10-07 06:05] LABS: Glucose,Whole Blood 157 mg/dL (75-99)
[2017-10-07 06:53] LABS: Glucose,Whole Blood 163 mg/dL (75-99)
[2017-10-07 07:12] LABS: ABG Base Excess -1.4 mmol/L; ABG HCO3 24 mmol/L (21-25); ABG Oxygen Saturation 99.2 % (94-97); ABG PCO2 39 mmHg (35-45); ABG PH 7.39 (7.35-7.45); ABG PO2 119 mmHg (83-108); ABG TCO2 25 mmol/L (19-24)
[2017-10-07] MEDS: IPRATROPIUM-ALBUTEROL 3 ML NEB INHALATION SCH ×4 (07:57→19:02)
[2017-10-07] MEDS: POTASSIUM CHLORIDE 20 MEQ in WATER FOR INJECTION 1 100ML.BAG IVPB SCH ×2 (08:32→11:28)
[2017-10-07] MEDS: SODIUM CHLORIDE 0.9% 1,000 ML IV SCH ×3 (08:34→18:57)
[2017-10-07] MEDS: CHLORHEXIDINE GLUCONATE 15 ML CUP MUCOUS MEM SCH ×2 (08:35→20:26)
[2017-10-07] MEDS: ASPIRIN 81 MG OG-TUBE SCH (08:35)
[2017-10-07 08:36] LABS: Glucose,Whole Blood 155 mg/dL (75-99)
[2017-10-07] MEDS: PANTOPRAZOLE 40 MG/10 ML VIAL IVP SCH (08:37)
[2017-10-07] MEDS: DEXTROSE 5% IN WATER 1,000 ML with SODIUM BICARB (1 MEQ/ML) 150 ML IV SCH (08:45)
--- NOTE | 2017-10-07 08:45 | XR ---
EXAMINATION TYPE: XR chest 1V portable DATE OF EXAM: 10/07/2017 COMPARISON: 10/06/2017 HISTORY: Central line placement TECHNIQUE: Single frontal view of the chest is obtained. FINDINGS: There is been interval placement of a left jugular central venous catheter, distal tip is in the right atrium. No evident pneumothorax or pleural effusion. No other significant interval menendez e. Postsurgical changes are seen. Arthropathy of the shoulders. ET and NG tube are stable. IMPRESSION: Diffuse bilateral infiltrates are stable greater on the right. Pulmonary edema is versus pneumonia. Correlate clinically.
[2017-10-07] MEDS: PIPERACILLIN-TAZOBACTAM 3.375 GM in DEXTROSE/WATER 1 50ML.BAG IVPB SCH ×2 (08:46→20:26)
[2017-10-07] MEDS ORDERED: FINASTERIDE 5 MG TAB PO SCH (09:00)
[2017-10-07] MEDS ORDERED: VANCOMYCIN 1,500 MG in SODIUM CHLORIDE 0.9% 250 ML IVPB ONE (09:00)
[2017-10-07 09:59] LABS: Hepatitis B Surface AB- Quant 3.5 mIU/mL
[2017-10-07] MEDS ORDERED: SODIUM CHLORIDE 0.9% 1,000 ML IV ONE ×2 (10:10→11:47)
[2017-10-07 10:15] LABS: Glucose,Whole Blood 155 mg/dL (75-99)
--- NOTE | 2017-10-07 10:55 | P.PN ---
Subjective Progress Note Date: 10/07/17 Principal diagnosis: Acute respiratory failure, mental status changes, renal failure, myocardial infarction. Progress note dated 10/07/2017 This is a 86-year-old male who was admitted on October 05. The patient was intubated on October 06. The patient was admitted with a diagnosis of mental status changes renal failure myocardial infarction. He is very very ill and on multiple medications including IV heparin propofol norepinephrine vasopressin insulin and sodium bicarbonate drip. The patient was seen by my partner yesterday with a diagnosis of acute hypoxemic respiratory failure with profound metabolic acidosis/lactic acidemia. The patient also came in with acute kidney injury/ATN. In addition, there is possibility of pneumonia and a previous history of coronary artery disease and bypass grafting type 2 diabetes hyperlipidemia and hypertension. Currently, the patient's on the volume assist control mode with a rate of 2010 of I'm 500 FiO2 50% and a PEEP of 10. Changes were rate increased to 22, tidal L[place] decrease to 450 and the PEEP decreased from 10-5. Arterial blood gases on the original setting showed a PaO2 of 119 a PaCO2 39 and a pH of 7.39. This is consistent with a mild hyperoxia. The patient is on heparin via weightbase protocol, propofol at 30 mics per kilogram per minute norepinephrine at 28 mics per minute vasopressin at 0.03 units per minute insulin at 30 units per hour a saline IV at 60 mL an hour and 3 A of sodium bicarbonate and D5W at 40 mL an hour. Objective - Vital Signs Vital signs: Vital Signs Temp 99.5 F 10/07/17 08:00 Pulse 107 H 10/07/17 10:00 Resp 22 10/07/17 10:00 BP 157/75 10/07/17 08:20 Pulse Ox 100 10/07/17 10:00 Intake & Output 10/06/17 10/07/17 10/07/17 18:59 06:59 18:59 Intake Total 2691.179 2638.203 810.145 Output Total 122 111 60 Balance 2569.179 2527.203 750.145 Weight 82.3 kg 87.5 kg Intake: IV 1782.0 1602 629 0.9 at KVO 130 260 0.9 for pressure bag 42 42 9 Calcium Chloride 1,000 mg 100 In Sodium Chloride 0.9% 100 ml @ 100 mls/hr IVPB ONCE STA Rx#:[id number] Dextrose 5% in Water 1, 150 000 ml @ 150 mls/hr IV . Q7H40M LV with Sodium Bicarb (1 Meq/ml) 150 ml Rx#:[id number] Dextrose 5% in Water 1, 900 1300 140 000 ml @ 40 mls/hr IV . Q24H LV with Sodium Bicarb (1 Meq/ml) 150 ml Rx#:[id number] Dextrose 5% in Water 1, 160 000 ml @ 80 mls/hr IV . [id number] LV with Sodium Bicarb (1 Meq/ml) 150 ml Rx#:[id number] Piperacillin-Tazobactam 3 50.0 50 .375 gm In Dextrose/Water 1 50ml.bag @ 12.5 mls/hr IVPB Q12HR LV Rx#: [id number] Potassium Chloride 20 meq 100 In Water For Injection 1 100ml.bag @ 50 mls/hr IVPB Q2H LV Rx#: [id number] Sodium Chloride 0.9% 1, 80 000 ml @ 60 mls/hr IV . [id number] LV Rx#:[id number] Vancomycin 1,500 mg In 250 250 Sodium Chloride 0.9% 250 ml @ 125 mls/hr IVPB ONCE ONE Rx#:[id number] Intake, IV Titration 909.179 911.203 51.145 Amount Heparin Sod,Pork in 0.45% 226.102 NaCl 25,000 unit In 0.45 % NaCl 1 500ml.bag @ 12 UNITS/KG/HR 19.75 mls/hr IV .Q24H LV Rx#: [id number] Insulin Regular 100 unit 45.178 45.816 In Sodium Chloride 0.9% 100 ml @ Per Protocol IV .Q0M LV Rx#:[id number] Norepinephrine 16 mg In 225.993 478.517 Dextrose 5% in Water 250 ml @ Titrate IV .Q0M LV Rx#:[id number] Norepinephrine 4 mg In 208.188 Dextrose 5% in Water 250 ml @ Titrate IV .Q0M LV Rx#:[id number] Norepinephrine 4 mg In 300.125 Dextrose 5% in Water 250 ml @ Titrate IV .Q0M STA Rx#:[id number] Propofol 1,000 mg In 46.194 Empty Bag 1 bag @ Titrate IV .Q0M LV Rx#: [id number] Propofol 1,000 mg In 83.501 160.768 51.145 Empty Bag 1 bag @ Titrate IV .Q0M [facility] Rx#: [id number] Oral 60 Tube Feeding 125 70 Output: Gastric Drainage 100 Urine 22 111 60 Other: Voiding Method Indwelling Catheter Indwelling Catheter ABP, PAP, CO, CI - Last Documented Arterial Blood Pressure 151/50 - Exam No acute distress, sedated, orally placed endotracheal tube and NG tube in place. HEENT examination is grossly unremarkable. Mucous membranes are moist. No oral lesions. Neck supple. Full range of motion. No adenopathy thyromegaly or neck vein distention. Cardiovascular examination reveals regular rhythm rate. S1-S2 normal. No S3 or S4. No discernible murmur noted. Lungs reveal scattered bilateral rhonchi. Breath sounds are equal bilaterally. No wheezes or crackles.. Abdomen soft bowel sounds are heard. No masses or tenderness. Extremities are intact. Slight edema noted. Skin is without rash or lesion. Neurologic examination could not be adequately assessed. - Labs CBC & Chem 7: 10/07/17 04:50 10/07/17 04:50 Labs: Abnormal Lab Results - Last 24 Hours (Table) 10/06/17 10/06/17 10/06/17 Range/Units 12:14 12:15 13:31 WBC (3.8-10.6) k/uL RBC (4.30-5.90) m/uL Hgb (13.0-17.5) gm/dL Hct (39.0-53.0) % APTT (22.0-30.0) sec ABG pH (7.35-7.45) ABG pO2 (83-108) mmHg ABG HCO3 (21-25) mmol/L ABG Total CO2 (19-24) mmol/L ABG O2 Saturation (94-97) % ABG Lactic Acid (0.5-1.6) mmol/L Sodium (137-145) mmol/L Potassium 3.2 L (3.5-5.1) mmol/L Chloride 108 H (98-107) mmol/L Carbon Dioxide 14 L (22-30) mmol/L BUN 60 H (9-20) mg/dL Creatinine 5.40 H* (0.66-1.25) mg/dL Glucose 272 H (74-99) mg/dL POC Glucose (mg/dL) 351 H 302 H (75-99) mg/dL Plasma Lactic Acid Gabriele (0.7-2.0) mmol/L Calcium 6.0 L* (8.4-10.2) mg/dL Magnesium (1.6-2.3) mg/dL Troponin I (0.000-0.034) ng/mL Crossmatch 10/06/17 10/06/17 10/06/17 Range/Units 13:35 14:31 14:57 WBC (3.8-10.6) k/uL RBC (4.30-5.90) m/uL Hgb (13.0-17.5) gm/dL Hct (39.0-53.0) % APTT (22.0-30.0) sec ABG pH 7.27 L (7.35-7.45) ABG pO2 (83-108) mmHg ABG HCO3 17 L (21-25) mmol/L ABG Total CO2 (19-24) mmol/L ABG O2 Saturation 98.4 H (94-97) % ABG Lactic Acid (0.5-1.6) mmol/L Sodium (137-145) mmol/L Potassium (3.5-5.1) mmol/L Chloride (98-107) mmol/L Carbon Dioxide (22-30) mmol/L BUN (9-20) mg/dL Creatinine (0.66-1.25) mg/dL Glucose (74-99) mg/dL POC Glucose (mg/dL) 308 H (75-99) mg/dL Plasma Lactic Acid Gabriele 3.5 H* (0.7-2.0) mmol/L Calcium (8.4-10.2) mg/dL Magnesium (1.6-2.3) mg/dL Troponin I (0.000-0.034) ng/mL Crossmatch 10/06/17 10/06/17 10/06/17 Range/Units 15:16 16:14 16:57 WBC (3.8-10.6) k/uL RBC (4.30-5.90) m/uL Hgb (13.0-17.5) gm/dL Hct (39.0-53.0) % APTT (22.0-30.0) sec ABG pH (7.35-7.45) ABG pO2 (83-108) mmHg ABG HCO3 (21-25) mmol/L ABG Total CO2 (19-24) mmol/L ABG O2 Saturation (94-97) % ABG Lactic Acid (0.5-1.6) mmol/L Sodium (137-145) mmol/L Potassium (3.5-5.1) mmol/L Chloride (98-107) mmol/L Carbon Dioxide (22-30) mmol/L BUN (9-20) mg/dL Creatinine (0.66-1.25) mg/dL Glucose (74-99) mg/dL POC Glucose (mg/dL) 290 H 254 H 243 H (75-99) mg/dL Plasma Lactic Acid Gabriele (0.7-2.0) mmol/L Calcium (8.4-10.2) mg/dL Magnesium (1.6-2.3) mg/dL Troponin I (0.000-0.034) ng/mL Crossmatch 10/06/17 10/06/17 10/06/17 Range/Units 17:00 18:04 18:45 WBC (3.8-10.6) k/uL RBC (4.30-5.90) m/uL Hgb (13.0-17.5) gm/dL Hct (39.0-53.0) % APTT >200.0 H* (22.0-30.0) sec ABG pH (7.35-7.45) ABG pO2 (83-108) mmHg ABG HCO3 (21-25) mmol/L ABG Total CO2 (19-24) mmol/L ABG O2 Saturation (94-97) % ABG Lactic Acid (0.5-1.6) mmol/L Sodium (137-145) mmol/L Potassium (3.5-5.1) mmol/L Chloride (98-107) mmol/L Carbon Dioxide (22-30) mmol/L BUN (9-20) mg/dL Creatinine (0.66-1.25) mg/dL Glucose (74-99) mg/dL POC Glucose (mg/dL) 264 H (75-99) mg/dL Plasma Lactic Acid Gabriele (0.7-2.0) mmol/L Calcium (8.4-10.2) mg/dL Magnesium (1.6-2.3) mg/dL Troponin I 45.100 H* (0.000-0.034) ng/mL Crossmatch 10/06/17 10/06/17 10/06/17 Range/Units 18:51 19:49 21:10 WBC (3.8-10.6) k/uL RBC (4.30-5.90) m/uL Hgb (13.0-17.5) gm/dL Hct (39.0-53.0) % APTT (22.0-30.0) sec ABG pH (7.35-7.45) ABG pO2 (83-108) mmHg ABG HCO3 (21-25) mmol/L ABG Total CO2 (19-24) mmol/L ABG O2 Saturation (94-97) % ABG Lactic Acid (0.5-1.6) mmol/L Sodium (137-145) mmol/L Potassium (3.5-5.1) mmol/L Chloride (98-107) mmol/L Carbon Dioxide (22-30) mmol/L BUN (9-20) mg/dL Creatinine (0.66-1.25) mg/dL Glucose (74-99) mg/dL POC Glucose (mg/dL) 209 H 175 H 159 H (75-99) mg/dL Plasma Lactic Acid Gabriele (0.7-2.0) mmol/L Calcium (8.4-10.2) mg/dL Magnesium (1.6-2.3) mg/dL Troponin I (0.000-0.034) ng/mL Crossmatch 10/06/17 10/06/17 10/06/17 Range/Units 21:50 22:53 23:05 WBC (3.8-10.6) k/uL RBC (4.30-5.90) m/uL Hgb (13.0-17.5) gm/dL Hct (39.0-53.0) % APTT (22.0-30.0) sec ABG pH (7.35-7.45) ABG pO2 (83-108) mmHg ABG HCO3 (21-25) mmol/L ABG Total CO2 (19-24) mmol/L ABG O2 Saturation (94-97) % ABG Lactic Acid (0.5-1.6) mmol/L Sodium (137-145) mmol/L Potassium (3.5-5.1) mmol/L Chloride (98-107) mmol/L Carbon Dioxide (22-30) mmol/L BUN (9-20) mg/dL Creatinine (0.66-1.25) mg/dL Glucose (74-99) mg/dL POC Glucose (mg/dL) 153 H 152 H (75-99) mg/dL Plasma Lactic Acid Gabriele (0.7-2.0) mmol/L Calcium (8.4-10.2) mg/dL Magnesium (1.6-2.3) mg/dL Troponin I 34.800 H* (0.000-0.034) ng/mL Crossmatch 10/06/17 10/07/17 10/07/17 Range/Units 23:58 00:59 01:00 WBC (3.8-10.6) k/uL RBC (4.30-5.90) m/uL Hgb (13.0-17.5) gm/dL Hct (39.0-53.0) % APTT (22.0-30.0) sec ABG pH (7.35-7.45) ABG pO2 (83-108) mmHg ABG HCO3 (21-25) mmol/L ABG Total CO2 (19-24) mmol/L ABG O2 Saturation (94-97) % ABG Lactic Acid (0.5-1.6) mmol/L Sodium (137-145) mmol/L Potassium (3.5-5.1) mmol/L Chloride (98-107) mmol/L Carbon Dioxide (22-30) mmol/L BUN (9-20) mg/dL Creatinine (0.66-1.25) mg/dL Glucose (74-99) mg/dL POC Glucose (mg/dL) 134 H 181 H 172 H (75-99) mg/dL Plasma Lactic Acid Gabriele (0.7-2.0) mmol/L Calcium (8.4-10.2) mg/dL Magnesium (1.6-2.3) mg/dL Troponin I (0.000-0.034) ng/mL Crossmatch 10/07/17 10/07/17 10/07/17 Range/Units 02:03 02:05 03:07 WBC (3.8-10.6) k/uL RBC (4.30-5.90) m/uL Hgb (13.0-17.5) gm/dL Hct (39.0-53.0) % APTT 95.3 H (22.0-30.0) sec ABG pH (7.35-7.45) ABG pO2 (83-108) mmHg ABG HCO3 (21-25) mmol/L ABG Total CO2 (19-24) mmol/L ABG O2 Saturation (94-97) % ABG Lactic Acid (0.5-1.6) mmol/L Sodium (137-145) mmol/L Potassium (3.5-5.1) mmol/L Chloride (98-107) mmol/L Carbon Dioxide (22-30) mmol/L BUN (9-20) mg/dL Creatinine (0.66-1.25) mg/dL Glucose (74-99) mg/dL POC Glucose (mg/dL) 207 H 167 H (75-99) mg/dL Plasma Lactic Acid Gabriele (0.7-2.0) mmol/L Calcium (8.4-10.2) mg/dL Magnesium (1.6-2.3) mg/dL Troponin I (0.000-0.034) ng/mL Crossmatch 10/07/17 10/07/17 10/07/17 Range/Units 04:07 04:50 04:50 WBC 11.5 H (3.8-10.6) k/uL RBC 2.56 L (4.30-5.90) m/uL Hgb 7.5 L (13.0-17.5) gm/dL Hct 21.9 L (39.0-53.0) % APTT (22.0-30.0) sec ABG pH (7.35-7.45) ABG pO2 (83-108) mmHg ABG HCO3 (21-25) mmol/L ABG Total CO2 (19-24) mmol/L ABG O2 Saturation (94-97) % ABG Lactic Acid (0.5-1.6) mmol/L Sodium 134 L (137-145) mmol/L Potassium 3.2 L (3.5-5.1) mmol/L Chloride 95 L (98-107) mmol/L Carbon Dioxide (22-30) mmol/L BUN 67 H (9-20) mg/dL Creatinine 6.31 H* (0.66-1.25) mg/dL Glucose 152 H (74-99) mg/dL POC Glucose (mg/dL) 169 H (75-99) mg/dL Plasma Lactic Acid Gabriele (0.7-2.0) mmol/L Calcium 6.8 L (8.4-10.2) mg/dL Magnesium (1.6-2.3) mg/dL Troponin I (0.000-0.034) ng/mL Crossmatch 10/07/17 10/07/17 10/07/17 Range/Units 04:50 04:50 04:57 WBC (3.8-10.6) k/uL RBC (4.30-5.90) m/uL Hgb (13.0-17.5) gm/dL Hct (39.0-53.0) % APTT (22.0-30.0) sec ABG pH (7.35-7.45) ABG pO2 (83-108) mmHg ABG HCO3 (21-25) mmol/L ABG Total CO2 (19-24) mmol/L ABG O2 Saturation (94-97) % ABG Lactic Acid 3.5 H* (0.5-1.6) mmol/L Sodium (137-145) mmol/L Potassium (3.5-5.1) mmol/L Chloride (98-107) mmol/L Carbon Dioxide (22-30) mmol/L BUN (9-20) mg/dL Creatinine (0.66-1.25) mg/dL Glucose (74-99) mg/dL POC Glucose (mg/dL) 185 H (75-99) mg/dL Plasma Lactic Acid Gabriele (0.7-2.0) mmol/L Calcium (8.4-10.2) mg/dL Magnesium 1.3 L (1.6-2.3) mg/dL Troponin I (0.000-0.034) ng/mL Crossmatch 10/07/17 10/07/17 10/07/17 Range/Units 04:59 06:03 06:51 WBC (3.8-10.6) k/uL RBC (4.30-5.90) m/uL Hgb (13.0-17.5) gm/dL Hct (39.0-53.0) % APTT (22.0-30.0) sec ABG pH (7.35-7.45) ABG pO2 (83-108) mmHg ABG HCO3 (21-25) mmol/L ABG Total CO2 (19-24) mmol/L ABG O2 Saturation (94-97) % ABG Lactic Acid (0.5-1.6) mmol/L Sodium (137-145) mmol/L Potassium (3.5-5.1) mmol/L Chloride (98-107) mmol/L Carbon Dioxide (22-30) mmol/L BUN (9-20) mg/dL Creatinine (0.66-1.25) mg/dL Glucose (74-99) mg/dL POC Glucose (mg/dL) 200 H 157 H 163 H (75-99) mg/dL Plasma Lactic Acid Gabriele (0.7-2.0) mmol/L Calcium (8.4-10.2) mg/dL Magnesium (1.6-2.3) mg/dL Troponin I (0.000-0.034) ng/mL Crossmatch 10/07/17 10/07/17 10/07/17 Range/Units 07:07 07:07 08:35 WBC (3.8-10.6) k/uL RBC (4.30-5.90) m/uL Hgb (13.0-17.5) gm/dL Hct (39.0-53.0) % APTT (22.0-30.0) sec ABG pH (7.35-7.45) ABG pO2 119 H (83-108) mmHg ABG HCO3 (21-25) mmol/L ABG Total CO2 25 H (19-24) mmol/L ABG O2 Saturation 99.2 H (94-97) % ABG Lactic Acid (0.5-1.6) mmol/L Sodium (137-145) mmol/L Potassium (3.5-5.1) mmol/L Chloride (98-107) mmol/L Carbon Dioxide (22-30) mmol/L BUN (9-20) mg/dL Creatinine (0.66-1.25) mg/dL Glucose (74-99) mg/dL POC Glucose (mg/dL) 155 H (75-99) mg/dL Plasma Lactic Acid Gabriele (0.7-2.0) mmol/L Calcium (8.4-10.2) mg/dL Magnesium (1.6-2.3) mg/dL Troponin I (0.000-0.034) ng/mL Crossmatch See Detail 10/07/17 10/07/17 Range/Units 09:55 10:14 WBC (3.8-10.6) k/uL RBC (4.30-5.90) m/uL Hgb (13.0-17.5) gm/dL Hct (39.0-53.0) % APTT 53.4 H (22.0-30.0) sec ABG pH (7.35-7.45) ABG pO2 (83-108) mmHg ABG HCO3 (21-25) mmol/L ABG Total CO2 (19-24) mmol/L ABG O2 Saturation (94-97) % ABG Lactic Acid (0.5-1.6) mmol/L Sodium (137-145) mmol/L Potassium (3.5-5.1) mmol/L Chloride (98-107) mmol/L Carbon Dioxide (22-30) mmol/L BUN (9-20) mg/dL Creatinine (0.66-1.25) mg/dL Glucose (74-99) mg/dL POC Glucose (mg/dL) 155 H (75-99) mg/dL Plasma Lactic Acid Gabriele (0.7-2.0) mmol/L Calcium (8.4-10.2) mg/dL Magnesium (1.6-2.3) mg/dL Troponin I (0.000-0.034) ng/mL Crossmatch Microbiology - Last 24 Hours (Table) 10/05/17 21:08 Blood Culture - Preliminary Blood No Growth after 24 hours 10/05/17 18:25 Urine Culture - Final Urine,Catheterized 10/06/17 04:44 Gram Stain - Preliminary Sputum Sputum Culture - Preliminary Assessment and Plan Assessment: Assessment Acute hypoxemic respiratory failure, possibly secondary to pneumonia with sepsis Profound metabolic acidosis/lactic acidemia, likely secondary to metformin Acute kidney injury/ATN, requiring acute hemodialysis Acute pulmonary edema secondary to renal fire and fluid overload History of CAD History of CABG History of type 2 diabetes History of hypertension History of hyperlipidemia Plan: Plan dated 10/07/2017 The patient is a DO NOT RESUSCITATE. We'll have further discussions with the family about CODE STATUS. A few vent changes were made increasing the rate from 20 to 22 dropping the tidal volume from 500 to 450 and decreasing the PEEP from 10 to 5. These changes may improve blood pressure. The patient will see some additional fluid 1 L saline. The patient will also have the vasopressin weaned off. We'll see if we can get the patient on just one pressor. Additional recommendations and suggestions are forthcoming. Prognosis is guarded. Labs x-rays a medications are all reviewed. Critical care time 34 minutes. Time with Patient: Greater than 30
[2017-10-07] MEDS ORDERED: METOPROLOL TARTRATE 25 MG TAB PO SCH (11:00)
--- NOTE | 2017-10-07 11:02 | PN ---
PROGRESS NOTE The patient was admitted to the hospital with severe metabolic acidosis and renal failure with serum creatinine of 11.8. He had one treatment of hemodialysis initially. The patient only had about 500 mL of ultrafiltration with his first treatment. The next day he was significantly hypotensive and had sustained an acute MT with troponin as high as 45. We tried dialysis yesterday, but patient's blood pressure dropped significantly and therefore the treatment was terminated. This morning Levophed is slightly down to about 35 from 52. The patient is also maintained on vasopressin. FiO2 is at 40%. He has not had much urine output. PHYSICAL EXAMINATION: On examination, patient is sedated. He is maintained on tube feedings. Blood pressure is 145/47, heart rate 106 per minute. He is afebrile. EXAMINATION OF THE HEART: S1, S2. EXAMINATION OF THE LUNGS: Bilateral breath sounds are heard. Abdomen is soft, nontender. Examination of the lower extremities shows edema 1+ bilaterally. LABS: Labs show sodium 134, potassium 3.2, chloride 95, CO2 is 23, BUN 67, serum creatinine 6.3, calcium 6.8, hemoglobin 7.5 g/dL. ASSESSMENT: 1. Acute kidney injury, acute tubular necrosis, currently oligoanuric, status post one treatment of hemodialysis on initial day of admission. We were not able to dialyze the patient yesterday secondary to severe hemodynamic instability, status post acute myocardial infarction. I will hold off on dialysis for now. The patient's Levophed is slightly lower than yesterday. We will continue to try and wean off pressors. I will give him a unit of packed RBCs to help with weaning off the pressors. 2. Hypokalemia. Will replace cautiously. 3. Status post acute myocardial infarction, being followed by Cardiology, maintained on IV heparin. 4. Respiratory failure, currently on a vent. 5. Pneumonia, maintained on empiric antibiotics. 6. Severe metabolic acidosis secondary to lactic acidosis and renal failure, maintained on bicarb drip and currently improved. 7. Volume overload. PLAN: Check CVP. Change IV fluids to decreased bicarb drip at 40 mL and we can continue with normal saline as the rest of the IV fluids. However, if the CVP is high, I will decrease normal saline. Continue to try and wean off pressors. MMODL / IJN: [id number] /
[2017-10-07] MEDS: ATORVASTATIN 40 MG TAB PO SCH (11:31)
[2017-10-07 12:41] LABS: Glucose,Whole Blood 144 mg/dL (75-99)
[2017-10-07] MEDS: HEPARIN SOD,PORK IN 0.45% NACL 25,000 UNIT in 0.45% NACL 1 500ML.BAG IV SCH (13:15)
[2017-10-07 14:17] LABS: Glucose,Whole Blood 145 mg/dL (75-99)
--- NOTE | 2017-10-07 15:10 | P.PN ---
Subjective Progress Note Date: 10/07/17 Principal diagnosis: Patient is an 86-year-old male past medical history of diabetes mellitus type 2, hypertension, and coronary artery bypass grafting who presented to the hospital accompanied by his sons due to altered mentation. In the ER he was found to have acute kidney injury with severe metabolic acidosis, lactic acidosis, and life-threatening hyperkalemia. Arrangements were made for emergent dialysis after he received temporizing measures. He was admitted to the ICU. He was also found have a positive troponin. He had no signs of sepsis as his white blood cell count was negative and he did not spike any fevers. He was placed on a bicarb drip secondary to his severe acidosis. Wismer screening mentation and worsening respiratory distress he required elective intubation early on the morning of 10/06. Patient sedated and ventilated at present, on multiple drips for pressure support currently on levo fed at 28, receiving bicarb drip at 40, and S at 60 mL an hour. Patient borderline oliguric with 30 mL out in the last hour. Objective - Vital Signs Vital signs: Vital Signs Temp 99.7 F H 10/07/17 12:00 Pulse 83 10/07/17 14:15 Resp 20 10/07/17 14:15 BP 94/59 10/07/17 14:15 Pulse Ox 98 10/07/17 14:15 Intake & Output 10/06/17 10/07/17 10/07/17 18:59 06:59 18:59 Intake Total 2691.179 2638.203 1987.965 Output Total 122 111 175 Balance 2569.179 2527.203 1812.965 Weight 82.3 kg 87.5 kg 89 kg Intake: IV 1782.0 1602 1244 0.9 at KVO 130 260 0.9 for pressure bag 42 42 24 Calcium Chloride 1,000 mg 100 In Sodium Chloride 0.9% 100 ml @ 100 mls/hr IVPB ONCE STA Rx#:[id number] Dextrose 5% in Water 1, 150 000 ml @ 150 mls/hr IV . Q7H40M LV with Sodium Bicarb (1 Meq/ml) 150 ml Rx#:[id number] Dextrose 5% in Water 1, 900 1300 340 000 ml @ 40 mls/hr IV . Q24H LV with Sodium Bicarb (1 Meq/ml) 150 ml Rx#:[id number] Dextrose 5% in Water 1, 160 000 ml @ 80 mls/hr IV . [id number] LV with Sodium Bicarb (1 Meq/ml) 150 ml Rx#:[id number] Piperacillin-Tazobactam 3 50.0 50 .375 gm In Dextrose/Water 1 50ml.bag @ 12.5 mls/hr IVPB Q12HR [facility] Rx#: [id number] Potassium Chloride 20 meq 200 In Water For Injection 1 100ml.bag @ 50 mls/hr IVPB Q2H [facility] Rx#: [id number] Sodium Chloride 0.9% 1, 380 000 ml @ 60 mls/hr IV . [id number] [facility] Rx#:[id number] Vancomycin 1,500 mg In 250 250 Sodium Chloride 0.9% 250 ml @ 125 mls/hr IVPB ONCE ONE Rx#:[id number] Intake, IV Titration 909.179 911.203 238.965 Amount Heparin Sod,Pork in 0.45% 226.102 115.368 NaCl 25,000 unit In 0.45 % NaCl 1 500ml.bag @ 12 UNITS/KG/HR 19.75 mls/hr IV .Q24H [facility] Rx#: [id number] Insulin Regular 100 unit 45.178 45.816 In Sodium Chloride 0.9% 100 ml @ Per Protocol IV .Q0M [facility] Rx#:[id number] Norepinephrine 16 mg In 225.993 478.517 70.544 Dextrose 5% in Water 250 ml @ Titrate IV .Q0M [facility] Rx#:[id number] Norepinephrine 4 mg In 208.188 Dextrose 5% in Water 250 ml @ Titrate IV .Q0M [facility] Rx#:[id number] Norepinephrine 4 mg In 300.125 Dextrose 5% in Water 250 ml @ Titrate IV .Q0M [facility] Rx#:[id number] Propofol 1,000 mg In 46.194 Empty Bag 1 bag @ Titrate IV .Q0M [facility] Rx#: [id number] Propofol 1,000 mg In 83.501 160.768 53.053 Empty Bag 1 bag @ Titrate IV .Q0M [facility] Rx#: [id number] Oral 60 Tube Feeding 125 385 Other 60 Output: Gastric Drainage 100 Urine 22 111 175 Other: Voiding Method Indwelling Catheter Indwelling Catheter Indwelling Catheter ABP, PAP, CO, CI - Last Documented Arterial Blood Pressure 113/49 - Exam Constitutional: No acute distress, sedated intubated and ventilated Eyes: Anicteric sclerae, moist conjunctiva, no lid-lag, PERRLA ENMT: NC/AT,Oropharynx clear, no erythema, exudates Neck:Supple, FROM, no masses, or JVD, No carotid bruits; No thyromegaly Lungs: Bibasilar crackles with rhonchi, Clear to percussion, Normal respiratory effort, currently on ventilator Cardiovascular: Heart regular in rate and rhythm, No murmurs, gallops, or rubs no peripheral edema Abdominal: Soft Nontender, nom distended, no guarding, no rebound or rigidity, Normoactive bowel sounds No hepatomegaly, No splenomegaly, No palpable mass No abdominal wall hernia noted Skin: Normal temperature, tone, texture, turgor, No induration No subcutaneous nodules, No rash, lesions, No ulcers Extremities: Edematous in his upper extremities , No digital cyanosis No clubbing, Pedal pulses intact and symmetrical Radial pulses intact and symmetrical Normal gait and station, No calf tenderness Psychiatric: Alert and oriented to person, place and time, Appropriate affect Intact judgement Neuro: Unable to assess in this ventilated and sedated patient - Labs CBC & Chem 7: 10/07/17 04:50 10/07/17 14:39 Labs: Abnormal Lab Results - Last 24 Hours (Table) 10/06/17 10/06/17 10/06/17 Range/Units 14:57 15:16 16:14 WBC (3.8-10.6) k/uL RBC (4.30-5.90) m/uL Hgb (13.0-17.5) gm/dL Hct (39.0-53.0) % APTT (22.0-30.0) sec ABG pH 7.27 L (7.35-7.45) ABG pO2 (83-108) mmHg ABG HCO3 17 L (21-25) mmol/L ABG Total CO2 (19-24) mmol/L ABG O2 Saturation 98.4 H (94-97) % ABG Lactic Acid (0.5-1.6) mmol/L Sodium (137-145) mmol/L Potassium (3.5-5.1) mmol/L Chloride (98-107) mmol/L BUN (9-20) mg/dL Creatinine (0.66-1.25) mg/dL Glucose (74-99) mg/dL POC Glucose (mg/dL) 290 H 254 H (75-99) mg/dL Calcium (8.4-10.2) mg/dL Magnesium (1.6-2.3) mg/dL Troponin I (0.000-0.034) ng/mL Crossmatch 10/06/17 10/06/17 10/06/17 Range/Units 16:57 17:00 18:04 WBC (3.8-10.6) k/uL RBC (4.30-5.90) m/uL Hgb (13.0-17.5) gm/dL Hct (39.0-53.0) % APTT (22.0-30.0) sec ABG pH (7.35-7.45) ABG pO2 (83-108) mmHg ABG HCO3 (21-25) mmol/L ABG Total CO2 (19-24) mmol/L ABG O2 Saturation (94-97) % ABG Lactic Acid (0.5-1.6) mmol/L Sodium (137-145) mmol/L Potassium (3.5-5.1) mmol/L Chloride (98-107) mmol/L BUN (9-20) mg/dL Creatinine (0.66-1.25) mg/dL Glucose (74-99) mg/dL POC Glucose (mg/dL) 243 H 264 H (75-99) mg/dL Calcium (8.4-10.2) mg/dL Magnesium (1.6-2.3) mg/dL Troponin I 45.100 H* (0.000-0.034) ng/mL Crossmatch 10/06/17 10/06/17 10/06/17 Range/Units 18:45 18:51 19:49 WBC (3.8-10.6) k/uL RBC (4.30-5.90) m/uL Hgb (13.0-17.5) gm/dL Hct (39.0-53.0) % APTT >200.0 H* (22.0-30.0) sec ABG pH (7.35-7.45) ABG pO2 (83-108) mmHg ABG HCO3 (21-25) mmol/L ABG Total CO2 (19-24) mmol/L ABG O2 Saturation (94-97) % ABG Lactic Acid (0.5-1.6) mmol/L Sodium (137-145) mmol/L Potassium (3.5-5.1) mmol/L Chloride (98-107) mmol/L BUN (9-20) mg/dL Creatinine (0.66-1.25) mg/dL Glucose (74-99) mg/dL POC Glucose (mg/dL) 209 H 175 H (75-99) mg/dL Calcium (8.4-10.2) mg/dL Magnesium (1.6-2.3) mg/dL Troponin I (0.000-0.034) ng/mL Crossmatch 10/06/17 10/06/17 10/06/17 Range/Units 21:10 21:50 22:53 WBC (3.8-10.6) k/uL RBC (4.30-5.90) m/uL Hgb (13.0-17.5) gm/dL Hct (39.0-53.0) % APTT (22.0-30.0) sec ABG pH (7.35-7.45) ABG pO2 (83-108) mmHg ABG HCO3 (21-25) mmol/L ABG Total CO2 (19-24) mmol/L ABG O2 Saturation (94-97) % ABG Lactic Acid (0.5-1.6) mmol/L Sodium (137-145) mmol/L Potassium (3.5-5.1) mmol/L Chloride (98-107) mmol/L BUN (9-20) mg/dL Creatinine (0.66-1.25) mg/dL Glucose (74-99) mg/dL POC Glucose (mg/dL) 159 H 153 H 152 H (75-99) mg/dL Calcium (8.4-10.2) mg/dL Magnesium (1.6-2.3) mg/dL Troponin I (0.000-0.034) ng/mL Crossmatch 10/06/17 10/06/17 10/07/17 Range/Units 23:05 23:58 00:59 WBC (3.8-10.6) k/uL RBC (4.30-5.90) m/uL Hgb (13.0-17.5) gm/dL Hct (39.0-53.0) % APTT (22.0-30.0) sec ABG pH (7.35-7.45) ABG pO2 (83-108) mmHg ABG HCO3 (21-25) mmol/L ABG Total CO2 (19-24) mmol/L ABG O2 Saturation (94-97) % ABG Lactic Acid (0.5-1.6) mmol/L Sodium (137-145) mmol/L Potassium (3.5-5.1) mmol/L Chloride (98-107) mmol/L BUN (9-20) mg/dL Creatinine (0.66-1.25) mg/dL Glucose (74-99) mg/dL POC Glucose (mg/dL) 134 H 181 H (75-99) mg/dL Calcium (8.4-10.2) mg/dL Magnesium (1.6-2.3) mg/dL Troponin I 34.800 H* (0.000-0.034) ng/mL Crossmatch 10/07/17 10/07/17 10/07/17 Range/Units 01:00 02:03 02:05 WBC (3.8-10.6) k/uL RBC (4.30-5.90) m/uL Hgb (13.0-17.5) gm/dL Hct (39.0-53.0) % APTT 95.3 H (22.0-30.0) sec ABG pH (7.35-7.45) ABG pO2 (83-108) mmHg ABG HCO3 (21-25) mmol/L ABG Total CO2 (19-24) mmol/L ABG O2 Saturation (94-97) % ABG Lactic Acid (0.5-1.6) mmol/L Sodium (137-145) mmol/L Potassium (3.5-5.1) mmol/L Chloride (98-107) mmol/L BUN (9-20) mg/dL Creatinine (0.66-1.25) mg/dL Glucose (74-99) mg/dL POC Glucose (mg/dL) 172 H 207 H (75-99) mg/dL Calcium (8.4-10.2) mg/dL Magnesium (1.6-2.3) mg/dL Troponin I (0.000-0.034) ng/mL Crossmatch 10/07/17 10/07/17 10/07/17 Range/Units 03:07 04:07 04:50 WBC (3.8-10.6) k/uL RBC (4.30-5.90) m/uL Hgb (13.0-17.5) gm/dL Hct (39.0-53.0) % APTT (22.0-30.0) sec ABG pH (7.35-7.45) ABG pO2 (83-108) mmHg ABG HCO3 (21-25) mmol/L ABG Total CO2 (19-24) mmol/L ABG O2 Saturation (94-97) % ABG Lactic Acid (0.5-1.6) mmol/L Sodium 134 L (137-145) mmol/L Potassium 3.2 L (3.5-5.1) mmol/L Chloride 95 L (98-107) mmol/L BUN 67 H (9-20) mg/dL Creatinine 6.31 H* (0.66-1.25) mg/dL Glucose 152 H (74-99) mg/dL POC Glucose (mg/dL) 167 H 169 H (75-99) mg/dL Calcium 6.8 L (8.4-10.2) mg/dL Magnesium (1.6-2.3) mg/dL Troponin I (0.000-0.034) ng/mL Crossmatch 10/07/17 10/07/17 10/07/17 Range/Units 04:50 04:50 04:50 WBC 11.5 H (3.8-10.6) k/uL RBC 2.56 L (4.30-5.90) m/uL Hgb 7.5 L (13.0-17.5) gm/dL Hct 21.9 L (39.0-53.0) % APTT (22.0-30.0) sec ABG pH (7.35-7.45) ABG pO2 (83-108) mmHg ABG HCO3 (21-25) mmol/L ABG Total CO2 (19-24) mmol/L ABG O2 Saturation (94-97) % ABG Lactic Acid 3.5 H* (0.5-1.6) mmol/L Sodium (137-145) mmol/L Potassium (3.5-5.1) mmol/L Chloride (98-107) mmol/L BUN (9-20) mg/dL Creatinine (0.66-1.25) mg/dL Glucose (74-99) mg/dL POC Glucose (mg/dL) (75-99) mg/dL Calcium (8.4-10.2) mg/dL Magnesium 1.3 L (1.6-2.3) mg/dL Troponin I (0.000-0.034) ng/mL Crossmatch 10/07/17 10/07/17 10/07/17 Range/Units 04:57 04:59 06:03 WBC (3.8-10.6) k/uL RBC (4.30-5.90) m/uL Hgb (13.0-17.5) gm/dL Hct (39.0-53.0) % APTT (22.0-30.0) sec ABG pH (7.35-7.45) ABG pO2 (83-108) mmHg ABG HCO3 (21-25) mmol/L ABG Total CO2 (19-24) mmol/L ABG O2 Saturation (94-97) % ABG Lactic Acid (0.5-1.6) mmol/L Sodium (137-145) mmol/L Potassium (3.5-5.1) mmol/L Chloride (98-107) mmol/L BUN (9-20) mg/dL Creatinine (0.66-1.25) mg/dL Glucose (74-99) mg/dL POC Glucose (mg/dL) 185 H 200 H 157 H (75-99) mg/dL Calcium (8.4-10.2) mg/dL Magnesium (1.6-2.3) mg/dL Troponin I (0.000-0.034) ng/mL Crossmatch 10/07/17 10/07/17 10/07/17 Range/Units 06:51 07:07 07:07 WBC (3.8-10.6) k/uL RBC (4.30-5.90) m/uL Hgb (13.0-17.5) gm/dL Hct (39.0-53.0) % APTT (22.0-30.0) sec ABG pH (7.35-7.45) ABG pO2 119 H (83-108) mmHg ABG HCO3 (21-25) mmol/L ABG Total CO2 25 H (19-24) mmol/L ABG O2 Saturation 99.2 H (94-97) % ABG Lactic Acid (0.5-1.6) mmol/L Sodium (137-145) mmol/L Potassium (3.5-5.1) mmol/L Chloride (98-107) mmol/L BUN (9-20) mg/dL Creatinine (0.66-1.25) mg/dL Glucose (74-99) mg/dL POC Glucose (mg/dL) 163 H (75-99) mg/dL Calcium (8.4-10.2) mg/dL Magnesium (1.6-2.3) mg/dL Troponin I (0.000-0.034) ng/mL Crossmatch See Detail 10/07/17 10/07/17 10/07/17 Range/Units 08:35 09:55 10:14 WBC (3.8-10.6) k/uL RBC (4.30-5.90) m/uL Hgb (13.0-17.5) gm/dL Hct (39.0-53.0) % APTT 53.4 H (22.0-30.0) sec ABG pH (7.35-7.45) ABG pO2 (83-108) mmHg ABG HCO3 (21-25) mmol/L ABG Total CO2 (19-24) mmol/L ABG O2 Saturation (94-97) % ABG Lactic Acid (0.5-1.6) mmol/L Sodium (137-145) mmol/L Potassium (3.5-5.1) mmol/L Chloride (98-107) mmol/L BUN (9-20) mg/dL Creatinine (0.66-1.25) mg/dL Glucose (74-99) mg/dL POC Glucose (mg/dL) 155 H 155 H (75-99) mg/dL Calcium (8.4-10.2) mg/dL Magnesium (1.6-2.3) mg/dL Troponin I (0.000-0.034) ng/mL Crossmatch 10/07/17 10/07/17 Range/Units 12:39 14:14 WBC (3.8-10.6) k/uL RBC (4.30-5.90) m/uL Hgb (13.0-17.5) gm/dL Hct (39.0-53.0) % APTT (22.0-30.0) sec ABG pH (7.35-7.45) ABG pO2 (83-108) mmHg ABG HCO3 (21-25) mmol/L ABG Total CO2 (19-24) mmol/L ABG O2 Saturation (94-97) % ABG Lactic Acid (0.5-1.6) mmol/L Sodium (137-145) mmol/L Potassium (3.5-5.1) mmol/L Chloride (98-107) mmol/L BUN (9-20) mg/dL Creatinine (0.66-1.25) mg/dL Glucose (74-99) mg/dL POC Glucose (mg/dL) 144 H 145 H (75-99) mg/dL Calcium (8.4-10.2) mg/dL Magnesium (1.6-2.3) mg/dL Troponin I (0.000-0.034) ng/mL Crossmatch Microbiology - Last 24 Hours (Table) 10/05/17 21:08 Blood Culture - Preliminary Blood No Growth after 24 hours 10/05/17 18:25 Urine Culture - Final Urine,Catheterized 10/06/17 04:44 Gram Stain - Preliminary Sputum Sputum Culture - Preliminary Assessment and Plan Plan: Acute kidney injury with metabolic acidosis and severe life-threatening hyperkalemia -Status post emergent dialysis -NS with sodium bicarb drip -Nephrology recommendations -Renal ultrasound pending -Had a round of hemodialysis yesterday, canceled today secondary to hypotension -Hold glimepiride, metformin -No nephrotoxic agents noted on home medications Acute hypoxic respiratory failure -Likely secondary to severe metabolic acidosis and altered mentation -Continue with ventilator support -Appreciate pulmonary recommendations Toxic metabolic encephalopathy -Status post intubation -Likely secondary to renal failure -Continue with supportive measures Diabetes mellitus type 2 with hyperglycemia -Continue a sliding scale insulin, and continue drip if blood sugars continue to be greater than 300 -Check hemoglobin A1c -Old oral hypoglycemics Normocytic anemia -Unknown baseline -Serial CBCs -If continues downtrending and initiate anemia workup Lactic acidosis -Status post IV fluid resuscitation -Likely will stay elevated secondary to renal failure -No signs of underlying sepsis with normal temperature and normal white blood cell count -Concerns for possible underlying pneumonia expressed by critical care and patient has been started on Zosyn and vancomycin Acute coronary syndrome with subsequent Cardiogenic shock -Follow up echocardiogram -Continue vasopressors -Telemetry monitoring HTN - now hypotensive and on vasopressor, hold home medications Disposition * Critically ill, we will contact family members regarding ongoing plan of care and further discuss CODE STATUS and possible transitioning to comfort care * Anticipated discharge : Unable to determine
[2017-10-07 15:20] LABS: Hemoglobin A1C 7.3 % (4.0-6.0)
--- NOTE | 2017-10-07 15:59 | PN ---
PROGRESS NOTE FOLLOW-UP NOTE: Juan is an 86-year-old gentleman who was admitted to hospital with acute non-ST- segment-elevation AR with cardiogenic shock. He is currently intubated on vent on pressors. He has renal failure and they are not able to dialyze him because of hypotension. At the time of my evaluation, he is intubated on vent. Blood pressures have been in the 130s to 150s. Heart rate is 107. Chest exam reveals diminished air entry at the bases. Heart exam reveals first and second heart sounds. No gallop. Examination of extremities revealed mild edema. Peripheral pulses are felt. Lab show that potassium is 3.2, BUN is 67, creatinine is 6.3, hemoglobin is 7.5. ASSESSMENT: 1. Acute [id number]-elevation myocardial infarction. 2. Cardiogenic shock. 3. Acute onset renal failure. 4. Hypotension. PLAN: I will treat the patient with aspirin. Resume the Lipitor that he was on. Continue the IV heparin. Start him on a small dose of beta hardik. Continue with the pressors. His prognosis is guarded. I will review the echo once the results are available. He is not a candidate for invasive procedures at this time. I spoke to his son, who is at bedside. MMODL / IJN: [id number] /
[2017-10-07 17:45] LABS: Glucose,Whole Blood 154 mg/dL (75-99)
[2017-10-07] MEDS ORDERED: POTASSIUM CHLORIDE 20 MEQ in WATER FOR INJECTION 1 100ML.BAG IVPB STA (18:01)
[2017-10-07 19:38] LABS: Glucose,Whole Blood 172 mg/dL (75-99)
[2017-10-07] MEDS: INSULIN REGULAR 100 UNIT in SODIUM CHLORIDE 0.9% 100 ML IV SCH (19:50)
[2017-10-07 20:08] LABS: Magnesium 1.2 mg/dL (1.6-2.3); Phosphorus 3.7 mg/dL (2.5-4.5); Potassium 3.7 mmol/L (3.5-5.1)
[2017-10-07 21:56] LABS: Glucose,Whole Blood 153 mg/dL (75-99)
[2017-10-07] MEDS ORDERED: CALCIUM CHLORIDE 100 MG/ML 10 ML SYRINGE IVP ONE (22:00)
[2017-10-07] MEDS: MAGNESIUM SULFATE-D5W PMX 1 GM in DEXTROSE/WATER 1 100ML.BAG IVPB SCH ×2 (22:11→23:09)
[2017-10-07] MEDS: CALCIUM CARBONATE LIQUID 500 MG/5 ML CUP PO SCH (22:59)
[2017-10-07 23:51] LABS: Glucose,Whole Blood 134 mg/dL (75-99)
[2017-10-08] MEDS ORDERED: DEXTROSE 5% IN WATER 100 ML with AMIODARONE 150 MG IV ONE (00:02)
[2017-10-08] MEDS: AMIODARONE 450 MG in DEXTROSE 5% IN WATER 250 ML IV SCH ×6 (00:22→17:56)
[2017-10-08] MEDS: HEPARIN SOD,PORK IN 0.45% NACL 25,000 UNIT in 0.45% NACL 1 500ML.BAG IV SCH (00:41)
[2017-10-08 01:07] LABS: Glucose,Whole Blood 159 mg/dL (75-99)
[2017-10-08] MEDS: PROPOFOL 1,000 MG in EMPTY BAG 1 BAG IV SCH ×6 (01:36→23:06)
[2017-10-08 03:08] LABS: Glucose,Whole Blood 221 mg/dL (75-99)
[2017-10-08 03:58] LABS: Glucose,Whole Blood 222 mg/dL (75-99)
[2017-10-08] MEDS: SODIUM CHLORIDE 0.9% 1,000 ML IV SCH ×2 (04:15→14:15)
[2017-10-08 04:16] LABS: Basophils % (A) 0 %; Eosinophils % (A) 0 %; HCT 20.1 % (39.0-53.0); Lymphocytes # (A) 0.6 k/uL (1.0-4.8); Lymphocytes % (A) 7 %; MCH 29.1 pg (25.0-35.0); MCHC 33.7 g/dL (31.0-37.0); MCV 86.5 fL (80.0-100.0); Monocytes # (A) 0.2 k/uL (0-1.0); Monocytes % (A) 2 %; Neutrophils # (A) 7.3 k/uL (1.3-7.7); Neutrophils % (A) 90 %; Platelet Count 121 k/uL (150-450); RBC 2.33 m/uL (4.30-5.90); RDW 14.4 % (11.5-15.5); WBC 8.1 k/uL (3.8-10.6)
[2017-10-08 04:39] LABS: HGB 6.8 gm/dL (13.0-17.5)
[2017-10-08 04:49] LABS: Calcium 6.6 mg/dL (8.4-10.2); Potassium 3.7 mmol/L (3.5-5.1)
[2017-10-08 04:50] LABS: ABG HCO3 19 mmol/L (21-25); ABG Oxygen Saturation 99.1 % (94-97); ABG PCO2 33 mmHg (35-45); ABG PH 7.37 (7.35-7.45); ABG PO2 124 mmHg (83-108); ABG TCO2 20 mmol/L (19-24)
[2017-10-08 05:02] LABS: Glucose,Whole Blood 194 mg/dL (75-99)
[2017-10-08] MEDS: INSULIN REGULAR 100 UNIT in SODIUM CHLORIDE 0.9% 100 ML IV SCH (05:43)
[2017-10-08 05:49] LABS: Magnesium 1.5 mg/dL (1.6-2.3); Phosphorus 3.6 mg/dL (2.5-4.5)
[2017-10-08 06:16] LABS: Glucose,Whole Blood 207 mg/dL (75-99)
[2017-10-08] MEDS: NOREPINEPHRINE 16 MG in DEXTROSE 5% IN WATER 250 ML IV SCH ×2 (06:30)
--- NOTE | 2017-10-08 06:50 | P.PN ---
Subjective Progress Note Date: 10/08/17 Principal diagnosis: Acute respiratory failure, mental status changes, renal failure, myocardial infarction. Progress note dated 10/07/2017 This is a 86-year-old male who was admitted on October 05. The patient was intubated on October 06. The patient was admitted with a diagnosis of mental status changes renal failure myocardial infarction. He is very very ill and on multiple medications including IV heparin propofol norepinephrine vasopressin insulin and sodium bicarbonate drip. The patient was seen by my partner yesterday with a diagnosis of acute hypoxemic respiratory failure with profound metabolic acidosis/lactic acidemia. The patient also came in with acute kidney injury/ATN. In addition, there is possibility of pneumonia and a previous history of coronary artery disease and bypass grafting type 2 diabetes hyperlipidemia and hypertension. Currently, the patient's on the volume assist control mode with a rate of 2010 of I'm 500 FiO2 50% and a PEEP of 10. Changes were rate increased to 22, tidal L[place] decrease to 450 and the PEEP decreased from 10-5. Arterial blood gases on the original setting showed a PaO2 of 119 a PaCO2 39 and a pH of 7.39. This is consistent with a mild hyperoxia. The patient is on heparin via weightbase protocol, propofol at 30 mics per kilogram per minute norepinephrine at 28 mics per minute vasopressin at 0.03 units per minute insulin at 30 units per hour a saline IV at 60 mL an hour and 3 A of sodium bicarbonate and D5W at 40 mL an hour. Progress note dated 10/08/2017 86-year-old male who was admitted on October 05. He was intubated on October 06. The patient was admitted with a diagnosis of mental status changes, renal failure, myocardial infarction. He is very ill and on multiple medications and remains on the mechanical ventilator. He is on numerous strips and medications. My partner saw him in consultation and made a diagnosis of acute hypoxemic respiratory failure with profound metabolic acidosis/lactic acidemia. In addition, the patient had acute kidney injury/ATN and possible pneumonia. Currently the patient remains about the same. He is a DO NOT RESUSCITATE patient. He remains on the ventilator on the volume assist control mode with a rate of 22, tidal volume 450, FiO2 40%, and PEEP of 5. Blood gases show a PaO2 of 124 a PaCO2 of 33 and a pH is 7.37. That was on an FiO2 50%. The patient remains on saline at 100 mL an hour propofol at 40 mics per kilogram per minute , norepinephrine at 26 mcg/m heparin via weightbase protocol, insulin 5.5 units per hour and amiodarone at 1 mg/m. The patient is receiving vital high protein at 45 with a goal of 45. The patient will receive 1 unit of blood today for hemoglobin of 6.8. The patient did have issues with atrial fibrillation and flutter with rapid ventricular response which is why he was placed on the amiodarone. Chest x-ray shows bilateral infiltrates more right than left-sided. Objective - Vital Signs Vital signs: Vital Signs Temp 98.3 F 10/08/17 06:14 Pulse 123 H 10/08/17 06:15 Resp 22 10/08/17 06:15 BP 109/57 10/08/17 06:14 Pulse Ox 97 10/08/17 06:15 Intake & Output 10/07/17 10/07/17 10/08/17 06:59 18:59 06:59 Intake Total 2638.203 2724.971 3123.376 Output Total 111 230 176 Balance 2527.203 2494.971 2947.376 Weight 87.5 kg 89 kg 97.1 kg Intake: IV 1602 1616 1410 0.9 at KVO 260 0.9 for pressure bag 42 36 60 Dextrose 5% in Water 1, 1300 460 000 ml @ 40 mls/hr IV . Q24H LV with Sodium Bicarb (1 Meq/ml) 150 ml Rx#:[id number] Magnesium Sulfate-D5w Pmx 200 1 gm In Dextrose/Water 1 100ml.bag @ 100 mls/hr IVPB Q1H LV Rx#: [id number] Piperacillin-Tazobactam 3 50 50 .375 gm In Dextrose/Water 1 50ml.bag @ 12.5 mls/hr IVPB Q12HR LV Rx#: [id number] Potassium Chloride 20 meq 200 100 In Water For Injection 1 100ml.bag @ 50 mls/hr IVPB Q2H LV Rx#: [id number] Sodium Chloride 0.9% 1, 1000 000 ml @ 100 mls/hr IV . Q10H [facility] Rx#:[id number] Sodium Chloride 0.9% 1, 620 000 ml @ 60 mls/hr IV . [id number] LV Rx#:[id number] Vancomycin 1,500 mg In 250 Sodium Chloride 0.9% 250 ml @ 125 mls/hr IVPB ONCE ONE Rx#:[id number] Intake, IV Titration 911.203 348.971 993.376 Amount Amiodarone 450 mg In 211.784 Dextrose 5% in Water 250 ml @ 1 MG/MIN 34.53 mls/ hr IV .Q7H31M [facility] Rx#: [id number] Heparin Sod,Pork in 0.45% 226.102 115.368 179.543 NaCl 25,000 unit In 0.45 % NaCl 1 500ml.bag @ 12 UNITS/KG/HR 19.75 mls/hr IV .Q24H [facility] Rx#: [id number] Insulin Regular 100 unit 45.816 10.006 37.140 In Sodium Chloride 0.9% 100 ml @ Per Protocol IV .Q0M [facility] Rx#:[id number] Norepinephrine 16 mg In 478.517 70.544 395.149 Dextrose 5% in Water 250 ml @ Titrate IV .Q0M [facility] Rx#:[id number] Propofol 1,000 mg In 160.768 153.053 169.760 Empty Bag 1 bag @ Titrate IV .Q0M LV Rx#: [id number] Oral 60 Tube Feeding 125 610 630 Blood Product 0 Rc As-1 Unit 0 [id number] Other 90 90 Output: Urine 111 230 176 Other: Voiding Method Indwelling Catheter Indwelling Catheter Indwelling Catheter ABP, PAP, CO, CI - Last Documented Arterial Blood Pressure 111/55 - Exam No acute distress, sedated, orally placed endotracheal tube and NG tube in place. HEENT examination is grossly unremarkable. Mucous membranes are moist. No oral lesions. Neck supple. Full range of motion. No adenopathy thyromegaly or neck vein distention. Cardiovascular examination reveals regular rhythm rate. S1-S2 normal. No S3 or S4. Lungs reveal scattered bilateral rhonchi. Breath sounds are equal bilaterally. No wheezes or crackles.. Abdomen soft bowel sounds are heard. No masses or tenderness. Extremities are intact. Slight edema noted. Skin is without rash or lesion. Neurologic examination could not be adequately assessed. - Labs CBC & Chem 7: 10/08/17 04:00 10/08/17 04:00 Labs: Abnormal Lab Results - Last 24 Hours (Table) 10/05/17 10/07/17 10/07/17 Range/Units 23:48 04:50 06:51 RBC (4.30-5.90) m/uL Hgb (13.0-17.5) gm/dL Hct (39.0-53.0) % Plt Count (150-450) k/uL Lymphocytes # (1.0-4.8) k/uL APTT (22.0-30.0) sec ABG pCO2 (35-45) mmHg ABG pO2 (83-108) mmHg ABG HCO3 (21-25) mmol/L ABG Total CO2 (19-24) mmol/L ABG O2 Saturation (94-97) % Sodium (137-145) mmol/L Chloride (98-107) mmol/L Carbon Dioxide (22-30) mmol/L BUN (9-20) mg/dL Creatinine (0.66-1.25) mg/dL Glucose (74-99) mg/dL POC Glucose (mg/dL) 163 H (75-99) mg/dL Hemoglobin A1c 7.3 H (4.0-6.0) % Calcium (8.4-10.2) mg/dL Magnesium 1.3 L (1.6-2.3) mg/dL Crossmatch 10/07/17 10/07/17 10/07/17 Range/Units 07:07 07:07 08:35 RBC (4.30-5.90) m/uL Hgb (13.0-17.5) gm/dL Hct (39.0-53.0) % Plt Count (150-450) k/uL Lymphocytes # (1.0-4.8) k/uL APTT (22.0-30.0) sec ABG pCO2 (35-45) mmHg ABG pO2 119 H (83-108) mmHg ABG HCO3 (21-25) mmol/L ABG Total CO2 25 H (19-24) mmol/L ABG O2 Saturation 99.2 H (94-97) % Sodium (137-145) mmol/L Chloride (98-107) mmol/L Carbon Dioxide (22-30) mmol/L BUN (9-20) mg/dL Creatinine (0.66-1.25) mg/dL Glucose (74-99) mg/dL POC Glucose (mg/dL) 155 H (75-99) mg/dL Hemoglobin A1c (4.0-6.0) % Calcium (8.4-10.2) mg/dL Magnesium (1.6-2.3) mg/dL Crossmatch See Detail 10/07/17 10/07/17 10/07/17 Range/Units 09:55 10:14 12:39 RBC (4.30-5.90) m/uL Hgb (13.0-17.5) gm/dL Hct (39.0-53.0) % Plt Count (150-450) k/uL Lymphocytes # (1.0-4.8) k/uL APTT 53.4 H (22.0-30.0) sec ABG pCO2 (35-45) mmHg ABG pO2 (83-108) mmHg ABG HCO3 (21-25) mmol/L ABG Total CO2 (19-24) mmol/L ABG O2 Saturation (94-97) % Sodium (137-145) mmol/L Chloride (98-107) mmol/L Carbon Dioxide (22-30) mmol/L BUN (9-20) mg/dL Creatinine (0.66-1.25) mg/dL Glucose (74-99) mg/dL POC Glucose (mg/dL) 155 H 144 H (75-99) mg/dL Hemoglobin A1c (4.0-6.0) % Calcium (8.4-10.2) mg/dL Magnesium (1.6-2.3) mg/dL Crossmatch 10/07/17 10/07/17 10/07/17 Range/Units 14:14 17:42 19:30 RBC (4.30-5.90) m/uL Hgb (13.0-17.5) gm/dL Hct (39.0-53.0) % Plt Count (150-450) k/uL Lymphocytes # (1.0-4.8) k/uL APTT (22.0-30.0) sec ABG pCO2 (35-45) mmHg ABG pO2 (83-108) mmHg ABG HCO3 (21-25) mmol/L ABG Total CO2 (19-24) mmol/L ABG O2 Saturation (94-97) % Sodium 131 L (137-145) mmol/L Chloride 97 L (98-107) mmol/L Carbon Dioxide 20 L (22-30) mmol/L BUN 65 H (9-20) mg/dL Creatinine 5.90 H* (0.66-1.25) mg/dL Glucose 164 H (74-99) mg/dL POC Glucose (mg/dL) 145 H 154 H (75-99) mg/dL Hemoglobin A1c (4.0-6.0) % Calcium 6.0 L* (8.4-10.2) mg/dL Magnesium 1.2 L (1.6-2.3) mg/dL Crossmatch 10/07/17 10/07/17 10/07/17 Range/Units 19:37 21:54 23:49 RBC (4.30-5.90) m/uL Hgb (13.0-17.5) gm/dL Hct (39.0-53.0) % Plt Count (150-450) k/uL Lymphocytes # (1.0-4.8) k/uL APTT (22.0-30.0) sec ABG pCO2 (35-45) mmHg ABG pO2 (83-108) mmHg ABG HCO3 (21-25) mmol/L ABG Total CO2 (19-24) mmol/L ABG O2 Saturation (94-97) % Sodium (137-145) mmol/L Chloride (98-107) mmol/L Carbon Dioxide (22-30) mmol/L BUN (9-20) mg/dL Creatinine (0.66-1.25) mg/dL Glucose (74-99) mg/dL POC Glucose (mg/dL) 172 H 153 H 134 H (75-99) mg/dL Hemoglobin A1c (4.0-6.0) % Calcium (8.4-10.2) mg/dL Magnesium (1.6-2.3) mg/dL Crossmatch 10/08/17 10/08/17 10/08/17 Range/Units 01:06 03:06 03:55 RBC (4.30-5.90) m/uL Hgb (13.0-17.5) gm/dL Hct (39.0-53.0) % Plt Count (150-450) k/uL Lymphocytes # (1.0-4.8) k/uL APTT (22.0-30.0) sec ABG pCO2 (35-45) mmHg ABG pO2 (83-108) mmHg ABG HCO3 (21-25) mmol/L ABG Total CO2 (19-24) mmol/L ABG O2 Saturation (94-97) % Sodium (137-145) mmol/L Chloride (98-107) mmol/L Carbon Dioxide (22-30) mmol/L BUN (9-20) mg/dL Creatinine (0.66-1.25) mg/dL Glucose (74-99) mg/dL POC Glucose (mg/dL) 159 H 221 H 222 H (75-99) mg/dL Hemoglobin A1c (4.0-6.0) % Calcium (8.4-10.2) mg/dL Magnesium (1.6-2.3) mg/dL Crossmatch 10/08/17 10/08/17 10/08/17 Range/Units 04:00 04:00 04:00 RBC 2.33 L (4.30-5.90) m/uL Hgb 6.8 L* (13.0-17.5) gm/dL Hct 20.1 L (39.0-53.0) % Plt Count 121 L (150-450) k/uL Lymphocytes # 0.6 L (1.0-4.8) k/uL APTT 39.7 H (22.0-30.0) sec ABG pCO2 (35-45) mmHg ABG pO2 (83-108) mmHg ABG HCO3 (21-25) mmol/L ABG Total CO2 (19-24) mmol/L ABG O2 Saturation (94-97) % Sodium 129 L (137-145) mmol/L Chloride 95 L (98-107) mmol/L Carbon Dioxide 18 L (22-30) mmol/L BUN 64 H (9-20) mg/dL Creatinine 6.10 H* (0.66-1.25) mg/dL Glucose 193 H (74-99) mg/dL POC Glucose (mg/dL) (75-99) mg/dL Hemoglobin A1c (4.0-6.0) % Calcium 6.6 L (8.4-10.2) mg/dL Magnesium (1.6-2.3) mg/dL Crossmatch 10/08/17 10/08/17 10/08/17 Range/Units 04:00 04:45 05:00 RBC (4.30-5.90) m/uL Hgb (13.0-17.5) gm/dL Hct (39.0-53.0) % Plt Count (150-450) k/uL Lymphocytes # (1.0-4.8) k/uL APTT (22.0-30.0) sec ABG pCO2 33 L (35-45) mmHg ABG pO2 124 H (83-108) mmHg ABG HCO3 19 L (21-25) mmol/L ABG Total CO2 (19-24) mmol/L ABG O2 Saturation 99.1 H (94-97) % Sodium (137-145) mmol/L Chloride (98-107) mmol/L Carbon Dioxide (22-30) mmol/L BUN (9-20) mg/dL Creatinine (0.66-1.25) mg/dL Glucose (74-99) mg/dL POC Glucose (mg/dL) 194 H (75-99) mg/dL Hemoglobin A1c (4.0-6.0) % Calcium (8.4-10.2) mg/dL Magnesium 1.5 L (1.6-2.3) mg/dL Crossmatch 10/08/17 Range/Units 06:15 RBC (4.30-5.90) m/uL Hgb (13.0-17.5) gm/dL Hct (39.0-53.0) % Plt Count (150-450) k/uL Lymphocytes # (1.0-4.8) k/uL APTT (22.0-30.0) sec ABG pCO2 (35-45) mmHg ABG pO2 (83-108) mmHg ABG HCO3 (21-25) mmol/L ABG Total CO2 (19-24) mmol/L ABG O2 Saturation (94-97) % Sodium (137-145) mmol/L Chloride (98-107) mmol/L Carbon Dioxide (22-30) mmol/L BUN (9-20) mg/dL Creatinine (0.66-1.25) mg/dL Glucose (74-99) mg/dL POC Glucose (mg/dL) 207 H (75-99) mg/dL Hemoglobin A1c (4.0-6.0) % Calcium (8.4-10.2) mg/dL Magnesium (1.6-2.3) mg/dL Crossmatch Microbiology - Last 24 Hours (Table) 10/05/17 21:08 Blood Culture - Preliminary Blood No Growth after 48 hours Assessment and Plan Assessment: Assessment Acute hypoxemic respiratory failure, possibly secondary to pneumonia with sepsis , requiring intubation on October 06. Profound metabolic acidosis/lactic acidemia, likely secondary to metformin Acute kidney injury/ATN, requiring acute hemodialysis Acute pulmonary edema secondary to renal fire and fluid overload History of CAD History of CABG History of type 2 diabetes History of hypertension History of hyperlipidemia Plan: Plan dated 10/07/2017 The patient is a DO NOT RESUSCITATE. We'll have further discussions with the family about CODE STATUS. A few vent changes were made increasing the rate from 20 to 22 dropping the tidal volume from 500 to 450 and decreasing the PEEP from 10 to 5. These changes may improve blood pressure. The patient will see some additional fluid 1 L saline. The patient will also have the vasopressin weaned off. We'll see if we can get the patient on just one pressor. Additional recommendations and suggestions are forthcoming. Prognosis is guarded. Labs x-rays a medications are all reviewed. Critical care time 34 minutes. Plan dated 10/08/2017 The patient remains a DO NOT RESUSCITATE patient. Overall, there has not been any or much improvement at all of this patient. The patient will receive 1 unit of PRBCs today. Remains on multiple medications including saline IV, propofol, norepinephrine, heparin, insulin, and amiodarone. A chest x-ray labs and medications are reviewed. Prognosis is very poor. We'll continue to follow. Additional recommendations and suggestions are forthcoming. Critical care time 36 minutes Time with Patient: Greater than 30
[2017-10-08 07:02] LABS: Glucose,Whole Blood 179 mg/dL (75-99)
[2017-10-08] MEDS: IPRATROPIUM-ALBUTEROL 3 ML NEB INHALATION SCH ×5 (07:29→23:00)
[2017-10-08] MEDS ORDERED: POTASSIUM CHLORIDE 20 MEQ in WATER FOR INJECTION 1 100ML.BAG IVPB STA (08:05)
[2017-10-08 08:27] LABS: Glucose,Whole Blood 185 mg/dL (75-99)
--- NOTE | 2017-10-08 08:34 | XR ---
EXAMINATION TYPE: XR chest 1V DATE OF EXAM: 10/08/2017 COMPARISON: Prior chest 10/07/2017 HISTORY: Fluid overload, intubated TECHNIQUE: Single frontal view of the chest is obtained. FINDINGS: Endotracheal tube and NG tube, left jugular central venous catheter are stable in position s and overlying appropriate placement. Bilateral airspace disease is present, there may be some impro haroon aeration in the right upper lobe. There is obscured appearance of the right hemidiaphragm and med ial aspect of the left hemidiaphragm however. Patient is post median sternotomy, heart size is stable . Central vascularity is prominent. No pneumothorax. IMPRESSION: Correlate for congestive heart failure, there may be basilar effusions, edema versus ate lectasis, pneumonia not excluded. Follow-up recommended.
[2017-10-08] MEDS: MAGNESIUM SULFATE-D5W PMX 1 GM in DEXTROSE/WATER 1 100ML.BAG IVPB SCH ×2 (08:35→10:32)
[2017-10-08] MEDS: PIPERACILLIN-TAZOBACTAM 3.375 GM in DEXTROSE/WATER 1 50ML.BAG IVPB SCH ×2 (08:36→21:49)
[2017-10-08] MEDS: CHLORHEXIDINE GLUCONATE 15 ML CUP MUCOUS MEM SCH ×2 (08:36→21:47)
[2017-10-08] MEDS: ASPIRIN 81 MG OG-TUBE SCH (08:37)
[2017-10-08] MEDS: ATORVASTATIN 40 MG TAB PO SCH (08:37)
[2017-10-08] MEDS: CALCIUM CARBONATE LIQUID 500 MG/5 ML CUP PO SCH ×2 (08:38→21:47)
[2017-10-08] MEDS: PANTOPRAZOLE 40 MG/10 ML VIAL IVP SCH (08:38)
[2017-10-08 09:30] LABS: Glucose,Whole Blood 177 mg/dL (75-99)
[2017-10-08 09:35] LABS: HCT 22.7 % (39.0-53.0); HGB 7.6 gm/dL (13.0-17.5); MCH 28.7 pg (25.0-35.0); MCHC 33.5 g/dL (31.0-37.0); MCV 85.6 fL (80.0-100.0); Mean Platelet Volume 9.2; Platelet Count 118 k/uL (150-450); RBC 2.65 m/uL (4.30-5.90); RDW 14.1 % (11.5-15.5); WBC 8.2 k/uL (3.8-10.6)
[2017-10-08 10:40] LABS: Glucose,Whole Blood 146 mg/dL (75-99)
[2017-10-08] MEDS: SODIUM CHLORIDE 0.9% 99 ML with VASOPRESSIN 20 UNIT IV SCH ×2 (10:43)
[2017-10-08 11:08] VITALS: BMI 32.5
[2017-10-08 11:24] LABS: Glucose,Whole Blood 170 mg/dL (75-99)
[2017-10-08 12:09] LABS: Glucose,Whole Blood 165 mg/dL (75-99)
--- NOTE | 2017-10-08 12:39 | PN ---
PROGRESS NOTE Patient is seen for followup for acute kidney injury. The patient continues to have no significant urine output. He is maintained on high dose pressors with Levophed now at about 20 to 30 mcg. Vasopressin is off. The patient went into A. fib with RVR last night and is now on amiodarone drip as well. PHYSICAL EXAMINATION: On examination, blood pressure is 121/61, heart rate 99 per minute. Patient is sedated. He is on the vent. EXAMINATION OF THE HEART: S1, S2. EXAMINATION OF THE LUNGS: Bilateral breath sounds are heard. Abdomen is soft, nontender. Examination of the lower extremities shows edema 1+ bilaterally upper and lower extremities. LABS: Labs show hemoglobin 6.8 g/dL this morning. Sodium 129, potassium 3.7, CO2 is 18, BUN 64, serum creatinine 6.1. Phosphorus 3.6, magnesium 1.5. ASSESSMENT: 1. Acute kidney injury, acute tubular necrosis, currently on oliguric secondary to hypotension hypoperfusion, status post one treatment of hemodialysis on initial admission. Patient was not able to tolerate dialysis the following day. He has sustained an acute myocardial infarction and he is currently in atrial fibrillation with rapid ventricular response. I will hold off on any further renal replacement therapy for now. We will re-evaluate tomorrow. 2. Metabolic acidosis secondary to renal failure, currently improved. 3. Ventilator dependent respiratory failure, hypoxic. FiO2 is at 40%. 4. Anemia with drop in hemoglobin. Will transfuse 1 unit packed RBCs. 5. Status post acute myocardial infarction with troponin as high as 45, maintained on IV heparin. 6. Atrial fibrillation with rapid ventricular response, currently on amiodarone drip. 7. Hypomagnesemia, being replaced. 8. Hyponatremia which is hypervolemic. PLAN: Will reassess in a.m. regarding renal replacement therapy. Overall prognosis is poor. I discussed with the family, the patient's son, Magdaleno, and he was updated regarding the critical condition of his father. We will re-evaluate tomorrow for need for renal replacement therapy. At this time patient is too unstable to try dialysis. He is atrial fibrillation with RVR. Rate is better controlled. However, patient is still requiring large doses of pressors. MMODL / IJN: [id number] /
--- NOTE | 2017-10-08 12:44 | P.PN ---
Subjective Progress Note Date: 10/08/17 Principal diagnosis: Patient is an 86-year-old male past medical history of diabetes mellitus type 2, hypertension, and coronary artery bypass grafting who presented to the hospital accompanied by his sons due to altered mentation. In the ER he was found to have acute kidney injury with severe metabolic acidosis, lactic acidosis, and life-threatening hyperkalemia. Arrangements were made for emergent dialysis after he received temporizing measures. He was admitted to the ICU. He was also found have a positive troponin. He had no signs of sepsis as his white blood cell count was negative and he did not spike any fevers. He was placed on a bicarb drip secondary to his severe acidosis. Wismer screening mentation and worsening respiratory distress he required elective intubation early on the morning of 10/06. Patient sedated on propofol 40 mcg/kg/min and ventilated at present settings per pulmonary, on multiple drips for pressure support currently on levophed at 20 mcg/min, heparin weight-based protocol, insulin drip per protocol and initiated on amiodarone overnight due to atrial flutter//fibrillation with RVR, status post 1 unit of packed RBC transfusion due to low hemoglobin of 6.8. Son Shant at Bedside, I rediscussed CODE STATUS and ongoing plan of care for the patient, discussed the patient's extremely poor prognosis this patient is in cardiogenic shock with multiorgan failure and acute renal failure due to ATN, acute respiratory failure and possible pneumonia and profound metabolic acidosis. Patient's son voiced understanding of the patient's poor prognosis, and did admit that "dad what did not want this". Reports she plans to discuss with his brother and mother possibly switching to comfort care,topic to be readdressed tomorrow Objective - Vital Signs Vital signs: Vital Signs Temp 98.2 F 10/08/17 08:00 Pulse 97 10/08/17 11:43 Resp 22 10/08/17 11:00 BP 109/56 10/08/17 07:50 Pulse Ox 98 10/08/17 11:00 Intake & Output 10/07/17 10/08/17 10/08/17 18:59 06:59 18:59 Intake Total 2724.971 3892.875 1846.611 Output Total 230 213 70 Balance 2494.971 3679.875 1776.611 Weight 89 kg 97.1 kg 97.1 kg Intake: IV 1616 1728 1024 0.9 for pressure bag 36 78 24 Amiodarone 450 mg In 250 Dextrose 5% in Water 250 ml @ 1 MG/MIN 34.53 mls/ hr IV .Q7H31M [facility] Rx#: [id number] Dextrose 5% in Water 1, 460 000 ml @ 40 mls/hr IV . Q24H LV with Sodium Bicarb (1 Meq/ml) 150 ml Rx#:[id number] Magnesium Sulfate-D5w Pmx 200 200 1 gm In Dextrose/Water 1 100ml.bag @ 100 mls/hr IVPB Q1H [facility] Rx#: [id number] Piperacillin-Tazobactam 3 50 50 50 .375 gm In Dextrose/Water 1 50ml.bag @ 12.5 mls/hr IVPB Q12HR [facility] Rx#: [id number] Potassium Chloride 20 meq 200 100 100 In Water For Injection 1 100ml.bag @ 50 mls/hr IVPB Q2H LV Rx#: [id number] Sodium Chloride 0.9% 1, 1300 400 000 ml @ 100 mls/hr IV . Q10H [facility] Rx#:[id number] Sodium Chloride 0.9% 1, 620 000 ml @ 60 mls/hr IV . [id number] [facility] Rx#:[id number] Vancomycin 1,500 mg In 250 Sodium Chloride 0.9% 250 ml @ 125 mls/hr IVPB ONCE ONE Rx#:[id number] Intake, IV Titration 348.971 999.875 222.611 Amount Amiodarone 450 mg In 211.784 42.575 Dextrose 5% in Water 250 ml @ 1 MG/MIN 34.53 mls/ hr IV .Q7H31M [facility] Rx#: [id number] Heparin Sod,Pork in 0.45% 115.368 179.543 NaCl 25,000 unit In 0.45 % NaCl 1 500ml.bag @ 12 UNITS/KG/HR 19.75 mls/hr IV .Q24H [facility] Rx#: [id number] Insulin Regular 100 unit 10.006 37.140 32.004 In Sodium Chloride 0.9% 100 ml @ Per Protocol IV .Q0M [facility] Rx#:[id number] Norepinephrine 16 mg In 70.544 401.648 70.270 Dextrose 5% in Water 250 ml @ Titrate IV .Q0M [facility] Rx#:[id number] Propofol 1,000 mg In 153.053 169.760 77.762 Empty Bag 1 bag @ Titrate IV .Q0M LV Rx#: [id number] Oral 60 Tube Feeding 610 765 270 Blood Product 310 300 Rc As-1 Unit 0 300 [id number] Other 90 90 30 Output: Urine 230 213 70 Other: Voiding Method Indwelling Catheter Indwelling Catheter Indwelling Catheter ABP, PAP, CO, CI - Last Documented Arterial Blood Pressure 121/61 - Exam Constitutional: No acute distress, sedated intubated and ventilated Eyes: Anicteric sclerae, moist conjunctiva, no lid-lag, PERRLA ENMT: NC/AT,Oropharynx clear, no erythema, exudates Neck:Supple, FROM, no masses, or JVD, No carotid bruits; No thyromegaly Lungs: Bibasilar crackles with rhonchi, Clear to percussion, Normal respiratory effort, currently on ventilator Cardiovascular: Heart regular in rate and rhythm, No murmurs, gallops, or rubs no peripheral edema Abdominal: Soft Nontender, nom distended, no guarding, no rebound or rigidity, Normoactive bowel sounds No hepatomegaly, No splenomegaly, No palpable mass No abdominal wall hernia noted Skin: Normal temperature, tone, texture, turgor, No induration No subcutaneous nodules, No rash, lesions, No ulcers Extremities: Edematous in his upper extremities , No digital cyanosis No clubbing, Pedal pulses intact and symmetrical Radial pulses intact and symmetrical Normal gait and station, No calf tenderness Psychiatric: Alert and oriented to person, place and time, Appropriate affect Intact judgement Neuro: Unable to assess in this ventilated and sedated patient - Labs CBC & Chem 7: 10/08/17 09:27 10/08/17 04:00 Labs: Abnormal Lab Results - Last 24 Hours (Table) 10/05/17 10/07/17 10/07/17 Range/Units 23:48 07:07 12:39 RBC (4.30-5.90) m/uL Hgb (13.0-17.5) gm/dL Hct (39.0-53.0) % Plt Count (150-450) k/uL Lymphocytes # (1.0-4.8) k/uL APTT (22.0-30.0) sec ABG pCO2 (35-45) mmHg ABG pO2 (83-108) mmHg ABG HCO3 (21-25) mmol/L ABG O2 Saturation (94-97) % Sodium (137-145) mmol/L Chloride (98-107) mmol/L Carbon Dioxide (22-30) mmol/L BUN (9-20) mg/dL Creatinine (0.66-1.25) mg/dL Glucose (74-99) mg/dL POC Glucose (mg/dL) 144 H (75-99) mg/dL Hemoglobin A1c 7.3 H (4.0-6.0) % Calcium (8.4-10.2) mg/dL Magnesium (1.6-2.3) mg/dL Crossmatch See Detail 10/07/17 10/07/17 10/07/17 Range/Units 14:14 17:42 19:30 RBC (4.30-5.90) m/uL Hgb (13.0-17.5) gm/dL Hct (39.0-53.0) % Plt Count (150-450) k/uL Lymphocytes # (1.0-4.8) k/uL APTT (22.0-30.0) sec ABG pCO2 (35-45) mmHg ABG pO2 (83-108) mmHg ABG HCO3 (21-25) mmol/L ABG O2 Saturation (94-97) % Sodium 131 L (137-145) mmol/L Chloride 97 L (98-107) mmol/L Carbon Dioxide 20 L (22-30) mmol/L BUN 65 H (9-20) mg/dL Creatinine 5.90 H* (0.66-1.25) mg/dL Glucose 164 H (74-99) mg/dL POC Glucose (mg/dL) 145 H 154 H (75-99) mg/dL Hemoglobin A1c (4.0-6.0) % Calcium 6.0 L* (8.4-10.2) mg/dL Magnesium 1.2 L (1.6-2.3) mg/dL Crossmatch 10/07/17 10/07/17 10/07/17 Range/Units 19:37 21:54 23:49 RBC (4.30-5.90) m/uL Hgb (13.0-17.5) gm/dL Hct (39.0-53.0) % Plt Count (150-450) k/uL Lymphocytes # (1.0-4.8) k/uL APTT (22.0-30.0) sec ABG pCO2 (35-45) mmHg ABG pO2 (83-108) mmHg ABG HCO3 (21-25) mmol/L ABG O2 Saturation (94-97) % Sodium (137-145) mmol/L Chloride (98-107) mmol/L Carbon Dioxide (22-30) mmol/L BUN (9-20) mg/dL Creatinine (0.66-1.25) mg/dL Glucose (74-99) mg/dL POC Glucose (mg/dL) 172 H 153 H 134 H (75-99) mg/dL Hemoglobin A1c (4.0-6.0) % Calcium (8.4-10.2) mg/dL Magnesium (1.6-2.3) mg/dL Crossmatch 10/08/17 10/08/17 10/08/17 Range/Units 01:06 03:06 03:55 RBC (4.30-5.90) m/uL Hgb (13.0-17.5) gm/dL Hct (39.0-53.0) % Plt Count (150-450) k/uL Lymphocytes # (1.0-4.8) k/uL APTT (22.0-30.0) sec ABG pCO2 (35-45) mmHg ABG pO2 (83-108) mmHg ABG HCO3 (21-25) mmol/L ABG O2 Saturation (94-97) % Sodium (137-145) mmol/L Chloride (98-107) mmol/L Carbon Dioxide (22-30) mmol/L BUN (9-20) mg/dL Creatinine (0.66-1.25) mg/dL Glucose (74-99) mg/dL POC Glucose (mg/dL) 159 H 221 H 222 H (75-99) mg/dL Hemoglobin A1c (4.0-6.0) % Calcium (8.4-10.2) mg/dL Magnesium (1.6-2.3) mg/dL Crossmatch 07/03/18 07/03/18 07/03/18 Range/Units 04:00 04:00 04:00 RBC 2.33 L (4.30-5.90) m/uL Hgb 6.8 L* (13.0-17.5) gm/dL Hct 20.1 L (39.0-53.0) % Plt Count 121 L (150-450) k/uL Lymphocytes # 0.6 L (1.0-4.8) k/uL APTT 39.7 H (22.0-30.0) sec ABG pCO2 (35-45) mmHg ABG pO2 (83-108) mmHg ABG HCO3 (21-25) mmol/L ABG O2 Saturation (94-97) % Sodium 129 L (137-145) mmol/L Chloride 95 L (98-107) mmol/L Carbon Dioxide 18 L (22-30) mmol/L BUN 64 H (9-20) mg/dL Creatinine 6.10 H* (0.66-1.25) mg/dL Glucose 193 H (74-99) mg/dL POC Glucose (mg/dL) (75-99) mg/dL Hemoglobin A1c (4.0-6.0) % Calcium 6.6 L (8.4-10.2) mg/dL Magnesium (1.6-2.3) mg/dL Crossmatch 10/08/17 10/08/17 10/08/17 Range/Units 04:00 04:45 05:00 RBC (4.30-5.90) m/uL Hgb (13.0-17.5) gm/dL Hct (39.0-53.0) % Plt Count (150-450) k/uL Lymphocytes # (1.0-4.8) k/uL APTT (22.0-30.0) sec ABG pCO2 33 L (35-45) mmHg ABG pO2 124 H (83-108) mmHg ABG HCO3 19 L (21-25) mmol/L ABG O2 Saturation 99.1 H (94-97) % Sodium (137-145) mmol/L Chloride (98-107) mmol/L Carbon Dioxide (22-30) mmol/L BUN (9-20) mg/dL Creatinine (0.66-1.25) mg/dL Glucose (74-99) mg/dL POC Glucose (mg/dL) 194 H (75-99) mg/dL Hemoglobin A1c (4.0-6.0) % Calcium (8.4-10.2) mg/dL Magnesium 1.5 L (1.6-2.3) mg/dL Crossmatch 10/08/17 10/08/17 10/08/17 Range/Units 06:15 07:00 08:14 RBC (4.30-5.90) m/uL Hgb (13.0-17.5) gm/dL Hct (39.0-53.0) % Plt Count (150-450) k/uL Lymphocytes # (1.0-4.8) k/uL APTT (22.0-30.0) sec ABG pCO2 (35-45) mmHg ABG pO2 (83-108) mmHg ABG HCO3 (21-25) mmol/L ABG O2 Saturation (94-97) % Sodium (137-145) mmol/L Chloride (98-107) mmol/L Carbon Dioxide (22-30) mmol/L BUN (9-20) mg/dL Creatinine (0.66-1.25) mg/dL Glucose (74-99) mg/dL POC Glucose (mg/dL) 207 H 179 H 185 H (75-99) mg/dL Hemoglobin A1c (4.0-6.0) % Calcium (8.4-10.2) mg/dL Magnesium (1.6-2.3) mg/dL Crossmatch 10/08/17 10/08/17 10/08/17 Range/Units 09:23 09:27 10:39 RBC 2.65 L (4.30-5.90) m/uL Hgb 7.6 L (13.0-17.5) gm/dL Hct 22.7 L (39.0-53.0) % Plt Count 118 L (150-450) k/uL Lymphocytes # (1.0-4.8) k/uL APTT (22.0-30.0) sec ABG pCO2 (35-45) mmHg ABG pO2 (83-108) mmHg ABG HCO3 (21-25) mmol/L ABG O2 Saturation (94-97) % Sodium (137-145) mmol/L Chloride (98-107) mmol/L Carbon Dioxide (22-30) mmol/L BUN (9-20) mg/dL Creatinine (0.66-1.25) mg/dL Glucose (74-99) mg/dL POC Glucose (mg/dL) 177 H 146 H (75-99) mg/dL Hemoglobin A1c (4.0-6.0) % Calcium (8.4-10.2) mg/dL Magnesium (1.6-2.3) mg/dL Crossmatch 10/08/17 10/08/17 Range/Units 11:20 12:06 RBC (4.30-5.90) m/uL Hgb (13.0-17.5) gm/dL Hct (39.0-53.0) % Plt Count (150-450) k/uL Lymphocytes # (1.0-4.8) k/uL APTT (22.0-30.0) sec ABG pCO2 (35-45) mmHg ABG pO2 (83-108) mmHg ABG HCO3 (21-25) mmol/L ABG O2 Saturation (94-97) % Sodium (137-145) mmol/L Chloride (98-107) mmol/L Carbon Dioxide (22-30) mmol/L BUN (9-20) mg/dL Creatinine (0.66-1.25) mg/dL Glucose (74-99) mg/dL POC Glucose (mg/dL) 170 H 165 H (75-99) mg/dL Hemoglobin A1c (4.0-6.0) % Calcium (8.4-10.2) mg/dL Magnesium (1.6-2.3) mg/dL Crossmatch Microbiology - Last 24 Hours (Table) 10/06/17 04:44 Gram Stain - Final Sputum Sputum Culture - Final 10/05/17 21:08 Blood Culture - Preliminary Blood No Growth after 48 hours Assessment and Plan Plan: Acute kidney injury with metabolic acidosis due to ATN -Status post emergent dialysis -NS with sodium bicarb drip -Nephrology recommendations -Renal ultrasound pending -Had a round of hemodialysis yesterday, canceled today secondary to hypotension -Hold glimepiride, metformin -No nephrotoxic agents noted on home medications Acute hypoxic respiratory failure -Likely secondary to severe metabolic acidosis and altered mentation -Continue with ventilator support -Appreciate pulmonary recommendations Toxic metabolic encephalopathy -Status post intubation, patient not waking up on sedation vacation -Multifactorial -Continue with supportive measures Diabetes mellitus type 2 with hyperglycemia -continue insulin drip per protocol -Pending hemoglobin A1c -Old oral hypoglycemics Normocytic anemia -Hemoglobin 6.8 earlier today now 7.5 post 1 unit packed RBC transfusion -Serial CBCs -If continues downtrending and initiate anemia workup Lactic acidosis -Status post IV fluid resuscitation -Likely will stay elevated secondary to renal failure -No signs of underlying sepsis with normal temperature and normal white blood cell count -Concerns for possible underlying pneumonia expressed by critical care and patient has been started on Zosyn and vancomycin atrial fibrillation/flutter * continue amiodarone drip Acute coronary syndrome with subsequent Cardiogenic shock -Echocardiogram results pending -Continue vasopressors, -Telemetry monitoring Disposition * Critically discussed ongoing plan of care with son Shant * Anticipated discharge: Unable to determine
--- NOTE | 2017-10-08 12:57 | PN ---
PROGRESS NOTE Juan is an 86-year-old gentleman who was admitted to hospital with acute non ST- segment elevation CO and cardiogenic shock. He is on IV heparin, which I am going to stop today because of unexplained drop in his hemoglobin. He went all the way down to 6.8 and had to be transfused. He still remains intubated on vent. On exam, heart rate is 100 beats and blood pressure is 120/60, respiratory rate is 22. Chest exam reveals diminished air entry at the bases. Heart exam reveals first and second heart sounds. No gallop. Exam of extremities reveals 1+ edema. Labs showed that the hemoglobin is 7.6, potassium is 3.7, BUN and creatinine are elevated. ASSESSMENT: 1. Acute non ST-segment elevation myocardial infarction. 2. Cardiogenic shock. 3. Renal failure. 4. Anemia. Patient's prognosis is guarded. I am going to stop the IV heparin and start him on subcu heparin for DVT prophylaxis. If and when the blood pressure improves, we may consider putting him on beta blockers. The patient has had runs of atrial fibrillation and is currently on amiodarone which I am going to continue. He is already on aspirin and statins, which I am going to continue. . MMODL / IJN: [id number] /
[2017-10-08 13:03] LABS: Magnesium 1.9 mg/dL (1.6-2.3); Potassium 3.8 mmol/L (3.5-5.1)
[2017-10-08 13:22] LABS: Glucose,Whole Blood 167 mg/dL (75-99)
[2017-10-08 14:12] LABS: Glucose,Whole Blood 158 mg/dL (75-99)
[2017-10-08] MEDS: HEPARIN SODIUM,PORCINE 5,000 UNIT/ML 1 ML VIAL SQ SCH (15:30)
[2017-10-08 16:15] LABS: Glucose,Whole Blood 176 mg/dL (75-99)
[2017-10-08 17:52] LABS: Glucose,Whole Blood 154 mg/dL (75-99)
[2017-10-08 19:21] LABS: Magnesium 1.8 mg/dL (1.6-2.3); Potassium 3.9 mmol/L (3.5-5.1)
[2017-10-08 20:19] LABS: Glucose,Whole Blood 166 mg/dL (75-99)
[2017-10-08 22:02] LABS: Glucose,Whole Blood 151 mg/dL (75-99)
[2017-10-08 23:32] LABS: Glucose,Whole Blood 167 mg/dL (75-99)
[2017-10-09] MEDS: HEPARIN SODIUM,PORCINE 5,000 UNIT/ML 1 ML VIAL SQ SCH ×2 (00:30→08:01)
[2017-10-09] MEDS: NOREPINEPHRINE 16 MG in DEXTROSE 5% IN WATER 250 ML IV SCH ×2 (01:24)
[2017-10-09] MEDS: AMIODARONE 450 MG in DEXTROSE 5% IN WATER 250 ML IV SCH ×2 (01:25)
[2017-10-09] MEDS: SODIUM CHLORIDE 0.9% 1,000 ML IV SCH (01:26)
[2017-10-09 02:21] LABS: Glucose,Whole Blood 170 mg/dL (75-99)
[2017-10-09] MEDS: IPRATROPIUM-ALBUTEROL 3 ML NEB INHALATION SCH ×2 (03:00→07:34)
[2017-10-09 04:01] LABS: Glucose,Whole Blood 175 mg/dL (75-99)
[2017-10-09] MEDS: PROPOFOL 1,000 MG in EMPTY BAG 1 BAG IV SCH ×2 (04:10→08:14)
[2017-10-09 05:13] LABS: ABG Base Excess -8.1 mmol/L; ABG HCO3 18 mmol/L (21-25); ABG Oxygen Saturation 99.1 % (94-97); ABG PCO2 33 mmHg (35-45); ABG PH 7.34 (7.35-7.45); ABG PO2 140 mmHg (83-108); ABG TCO2 19 mmol/L (19-24)
[2017-10-09 05:17] LABS: HGB 7.6 gm/dL (13.0-17.5); MCH 28.6 pg (25.0-35.0); MCHC 33.1 g/dL (31.0-37.0); MCV 86.2 fL (80.0-100.0); Mean Platelet Volume 10.5; Platelet Count 116 k/uL (150-450); RBC 2.67 m/uL (4.30-5.90); RDW 14.4 % (11.5-15.5); WBC 8.8 k/uL (3.8-10.6)
[2017-10-09 05:33] LABS: Potassium 4.1 mmol/L (3.5-5.1)
[2017-10-09 05:45] LABS: Calcium 6.3 mg/dL (8.4-10.2)
--- NOTE | 2017-10-09 07:07 | XR ---
EXAMINATION TYPE: XR chest 1V LIMITED PORTABLE DATE OF EXAM: 10/09/2017 COMPARISON: Prior portable chest x-ray dated 10/09/2015 at 6:31 AM HISTORY: Fluid overload TECHNIQUE: Single frontal view of the chest is obtained and labeled portable. FINDINGS: Persistence of cardiomegaly. Multiple sternal wires and a central line with the tip project ing at the level of the right atrium. Blunting of the costophrenic angle and increased density indica tive of bilateral pleural effusions. Persistent thickening of the pulmonary vessels indicating inters titial pulmonary edema. No pneumothorax. Stable position of the endotracheal tube. Scapulas are obscu ring the upper lung watson. IMPRESSION: Persistent cardiomegaly with bilateral pleural effusions and accentuation of the vascular markings suggestive of interstitial pulmonary edema.
[2017-10-09 07:17] LABS: Glucose,Whole Blood 184 mg/dL (75-99)
[2017-10-09] MEDS: PIPERACILLIN-TAZOBACTAM 3.375 GM in DEXTROSE/WATER 1 50ML.BAG IVPB SCH (08:01)
[2017-10-09 08:02] LABS: Glucose,Whole Blood 197 mg/dL (75-99)
[2017-10-09] MEDS: CHLORHEXIDINE GLUCONATE 15 ML CUP MUCOUS MEM SCH (08:03)
[2017-10-09] MEDS: ATORVASTATIN 40 MG TAB PO SCH (08:04)
[2017-10-09] MEDS: ASPIRIN 81 MG OG-TUBE SCH (08:04)
[2017-10-09] MEDS: PANTOPRAZOLE 40 MG/10 ML VIAL IVP SCH (08:04)
[2017-10-09] MEDS: CALCIUM CARBONATE LIQUID 500 MG/5 ML CUP PO SCH (08:14)
[2017-10-09 08:19] VITALS: TEMP 97.8
--- NOTE | 2017-10-09 08:46 | P.PN ---
Subjective Progress Note Date: 10/09/17 Principal diagnosis: Acute respiratory failure, mental status changes, renal failure, myocardial infarction. Progress note dated 10/07/2017 This is a 86-year-old male who was admitted on October 05. The patient was intubated on October 06. The patient was admitted with a diagnosis of mental status changes renal failure myocardial infarction. He is very very ill and on multiple medications including IV heparin propofol norepinephrine vasopressin insulin and sodium bicarbonate drip. The patient was seen by my partner yesterday with a diagnosis of acute hypoxemic respiratory failure with profound metabolic acidosis/lactic acidemia. The patient also came in with acute kidney injury/ATN. In addition, there is possibility of pneumonia and a previous history of coronary artery disease and bypass grafting type 2 diabetes hyperlipidemia and hypertension. Currently, the patient's on the volume assist control mode with a rate of 2010 of I'm 500 FiO2 50% and a PEEP of 10. Changes were rate increased to 22, tidal [place] decrease to 450 and the PEEP decreased from 10-5. Arterial blood gases on the original setting showed a PaO2 of 119 a PaCO2 39 and a pH of 7.39. This is consistent with a mild hyperoxia. The patient is on heparin via weightbase protocol, propofol at 30 mics per kilogram per minute norepinephrine at 28 mics per minute vasopressin at 0.03 units per minute insulin at 30 units per hour a saline IV at 60 mL an hour and 3 A of sodium bicarbonate and D5W at 40 mL an hour. Progress note dated 10/08/2017 86-year-old male who was admitted on October 05. He was intubated on October 06. The patient was admitted with a diagnosis of mental status changes, renal failure, myocardial infarction. He is very ill and on multiple medications and remains on the mechanical ventilator. He is on numerous strips and medications. My partner saw him in consultation and made a diagnosis of acute hypoxemic respiratory failure with profound metabolic acidosis/lactic acidemia. In addition, the patient had acute kidney injury/ATN and possible pneumonia. Currently the patient remains about the same. He is a DO NOT RESUSCITATE patient. He remains on the ventilator on the volume assist control mode with a rate of 22, tidal volume 450, FiO2 40%, and PEEP of 5. Blood gases show a PaO2 of 124 a PaCO2 of 33 and a pH is 7.37. That was on an FiO2 50%. The patient remains on saline at 100 mL an hour propofol at 40 mics per kilogram per minute , norepinephrine at 26 mcg/m heparin via weightbase protocol, insulin 5.5 units per hour and amiodarone at 1 mg/m. The patient is receiving vital high protein at 45 with a goal of 45. The patient will receive 1 unit of blood today for hemoglobin of 6.8. The patient did have issues with atrial fibrillation and flutter with rapid ventricular response which is why he was placed on the amiodarone. Chest x-ray shows bilateral infiltrates more right than left-sided. Progress note dated 10/09/2017 86-year-old male who was admitted on October 05 and intubated on October 06. He came in with mental status changes, renal failure, and myocardial infarction. He is very very ill has not shown any improvement on the ventilator. He is a DO NOT RESUSCITATE. His diagnoses include the above plus in addition, acute hypoxemic respiratory failure with profound metabolic acidosis/lactic acidemia, possible pneumonia, acute kidney injury/ATN and a multitude of other medical problems including atrial fibrillation requiring amiodarone. Currently, he is on the volume assist control mode with a rate of 22, tidal volume 450 FiO2 40% PEEP of 5. Arterial blood gases show a PaO2 of 140 PaCO2 of 33 and pH 7.34. This is consistent with ongoing metabolic acidosis. He is not norepinephrine at 45 up to now 60 mcg/m. In addition he is on amiodarone at 0.5 mg/m, propofol at 40 mics per kilogram per minute insulin at 2 units an hour a saline IV at 100 mL an hour and vital high protein at 45 with a goal of 45 mL per hour. I'm going to have a talk with the family this morning about comfort measures. The patient is a DO NOT RESUSCITATE. He is not responding TO therapy despite many days of very intense supportive care. The appropriate thing at this point would be to terminally wean this patient. I'll talk to one of the sons and see if they agree. Objective - Vital Signs Vital signs: Vital Signs Temp 97.8 F 10/09/17 08:00 Pulse 77 10/09/17 08:15 Resp 24 10/09/17 08:15 BP 84/47 10/09/17 08:15 Pulse Ox 99 10/09/17 08:15 Intake & Output 0710/09/17 10/09/17 18:59 06:59 18:59 Intake Total 2876.939 2047.926 266.681 Output Total 117 204 Balance 2759.939 1843.926 266.681 Weight 97.1 kg 102.3 kg Intake: IV 1342 1378 0.9 for pressure bag 42 78 Amiodarone 450 mg In 250 Dextrose 5% in Water 250 ml @ 1 MG/MIN 34.53 mls/ hr IV .Q7H31M LV Rx#: [id number] Magnesium Sulfate-D5w Pmx 200 1 gm In Dextrose/Water 1 100ml.bag @ 100 mls/hr IVPB Q1H LV Rx#: [id number] Piperacillin-Tazobactam 3 50 .375 gm In Dextrose/Water 1 50ml.bag @ 12.5 mls/hr IVPB Q12HR LV Rx#: [id number] Potassium Chloride 20 meq 100 In Water For Injection 1 100ml.bag @ 50 mls/hr IVPB Q2H LV Rx#: [id number] Sodium Chloride 0.9% 1, 700 1300 000 ml @ 100 mls/hr IV . Q10H LV Rx#:[id number] Intake, IV Titration 544.939 414.926 266.681 Amount Amiodarone 450 mg In 151.601 129.162 Dextrose 5% in Water 250 ml @ 1 MG/MIN 34.53 mls/ hr IV .Q7H31M LV Rx#: [id number] Insulin Regular 100 unit 48.036 29.054 In Sodium Chloride 0.9% 100 ml @ Per Protocol IV .Q0M LV Rx#:[id number] Norepinephrine 16 mg In 176.955 66.546 136.092 Dextrose 5% in Water 250 ml @ Titrate IV .Q0M LV Rx#:[id number] Propofol 1,000 mg In 168.347 219.218 101.535 Empty Bag 1 bag @ Titrate IV .Q0M LV Rx#: [id number] Oral 60 Tube Feeding 540 225 Blood Product 300 Rc As-1 Unit 300 [id number] Other 90 30 Output: Urine 117 204 Other: Voiding Method Indwelling Catheter Indwelling Catheter ABP, PAP, CO, CI - Last Documented Arterial Blood Pressure 86/37 - Exam No acute distress, sedated, orally placed endotracheal tube and NG tube in place. HEENT examination is grossly unremarkable. Mucous membranes are moist. No oral lesions. Neck supple. Full range of motion. No adenopathy thyromegaly or neck vein distention. Cardiovascular examination reveals regular rhythm rate. S1-S2 normal. No S3 or S4. Lungs reveal scattered bilateral rhonchi. Breath sounds are equal bilaterally. No wheezes or crackles.. Abdomen soft bowel sounds are heard. No masses or tenderness. Extremities are intact. Diffuse anasarca and edema noted. Skin is without rash or lesion. Neurologic examination could not be adequately assessed. - Labs CBC & Chem 7: 10/09/17 04:50 10/09/17 04:50 Labs: Abnormal Lab Results - Last 24 Hours (Table) 10/07/17 10/08/17 10/08/17 Range/Units 07:07 09:23 09:27 RBC 2.65 L (4.30-5.90) m/uL Hgb 7.6 L (13.0-17.5) gm/dL Hct 22.7 L (39.0-53.0) % Plt Count 118 L (150-450) k/uL ABG pH (7.35-7.45) ABG pCO2 (35-45) mmHg ABG pO2 (83-108) mmHg ABG HCO3 (21-25) mmol/L ABG O2 Saturation (94-97) % Sodium (137-145) mmol/L Chloride (98-107) mmol/L Carbon Dioxide (22-30) mmol/L BUN (9-20) mg/dL Creatinine (0.66-1.25) mg/dL Glucose (74-99) mg/dL POC Glucose (mg/dL) 177 H (75-99) mg/dL Calcium (8.4-10.2) mg/dL Crossmatch See Detail 10/08/17 10/08/17 10/08/17 Range/Units 10:39 11:20 12:06 RBC (4.30-5.90) m/uL Hgb (13.0-17.5) gm/dL Hct (39.0-53.0) % Plt Count (150-450) k/uL ABG pH (7.35-7.45) ABG pCO2 (35-45) mmHg ABG pO2 (83-108) mmHg ABG HCO3 (21-25) mmol/L ABG O2 Saturation (94-97) % Sodium (137-145) mmol/L Chloride (98-107) mmol/L Carbon Dioxide (22-30) mmol/L BUN (9-20) mg/dL Creatinine (0.66-1.25) mg/dL Glucose (74-99) mg/dL POC Glucose (mg/dL) 146 H 170 H 165 H (75-99) mg/dL Calcium (8.4-10.2) mg/dL Crossmatch 10/08/17 10/08/17 10/08/17 Range/Units 13:19 14:09 16:10 RBC (4.30-5.90) m/uL Hgb (13.0-17.5) gm/dL Hct (39.0-53.0) % Plt Count (150-450) k/uL ABG pH (7.35-7.45) ABG pCO2 (35-45) mmHg ABG pO2 (83-108) mmHg ABG HCO3 (21-25) mmol/L ABG O2 Saturation (94-97) % Sodium (137-145) mmol/L Chloride (98-107) mmol/L Carbon Dioxide (22-30) mmol/L BUN (9-20) mg/dL Creatinine (0.66-1.25) mg/dL Glucose (74-99) mg/dL POC Glucose (mg/dL) 167 H 158 H 176 H (75-99) mg/dL Calcium (8.4-10.2) mg/dL Crossmatch 10/08/17 10/08/17 10/08/17 Range/Units 17:51 20:18 22:00 RBC (4.30-5.90) m/uL Hgb (13.0-17.5) gm/dL Hct (39.0-53.0) % Plt Count (150-450) k/uL ABG pH (7.35-7.45) ABG pCO2 (35-45) mmHg ABG pO2 (83-108) mmHg ABG HCO3 (21-25) mmol/L ABG O2 Saturation (94-97) % Sodium (137-145) mmol/L Chloride (98-107) mmol/L Carbon Dioxide (22-30) mmol/L BUN (9-20) mg/dL Creatinine (0.66-1.25) mg/dL Glucose (74-99) mg/dL POC Glucose (mg/dL) 154 H 166 H 151 H (75-99) mg/dL Calcium (8.4-10.2) mg/dL Crossmatch 10/08/17 10/09/17 10/09/17 Range/Units 23:31 02:18 03:59 RBC (4.30-5.90) m/uL Hgb (13.0-17.5) gm/dL Hct (39.0-53.0) % Plt Count (150-450) k/uL ABG pH (7.35-7.45) ABG pCO2 (35-45) mmHg ABG pO2 (83-108) mmHg ABG HCO3 (21-25) mmol/L ABG O2 Saturation (94-97) % Sodium (137-145) mmol/L Chloride (98-107) mmol/L Carbon Dioxide (22-30) mmol/L BUN (9-20) mg/dL Creatinine (0.66-1.25) mg/dL Glucose (74-99) mg/dL POC Glucose (mg/dL) 167 H 170 H 175 H (75-99) mg/dL Calcium (8.4-10.2) mg/dL Crossmatch 10/09/17 10/09/17 10/09/17 Range/Units 04:50 04:50 05:10 RBC 2.67 L (4.30-5.90) m/uL Hgb 7.6 L (13.0-17.5) gm/dL Hct 23.0 L (39.0-53.0) % Plt Count 116 L (150-450) k/uL ABG pH 7.34 L (7.35-7.45) ABG pCO2 33 L (35-45) mmHg ABG pO2 140 H (83-108) mmHg ABG HCO3 18 L (21-25) mmol/L ABG O2 Saturation 99.1 H (94-97) % Sodium 128 L (137-145) mmol/L Chloride 95 L (98-107) mmol/L Carbon Dioxide 19 L (22-30) mmol/L BUN 67 H (9-20) mg/dL Creatinine 5.90 H* (0.66-1.25) mg/dL Glucose 165 H (74-99) mg/dL POC Glucose (mg/dL) (75-99) mg/dL Calcium 6.3 L* (8.4-10.2) mg/dL Crossmatch 10/09/17 10/09/17 Range/Units 07:03 08:00 RBC (4.30-5.90) m/uL Hgb (13.0-17.5) gm/dL Hct (39.0-53.0) % Plt Count (150-450) k/uL ABG pH (7.35-7.45) ABG pCO2 (35-45) mmHg ABG pO2 (83-108) mmHg ABG HCO3 (21-25) mmol/L ABG O2 Saturation (94-97) % Sodium (137-145) mmol/L Chloride (98-107) mmol/L Carbon Dioxide (22-30) mmol/L BUN (9-20) mg/dL Creatinine (0.66-1.25) mg/dL Glucose (74-99) mg/dL POC Glucose (mg/dL) 184 H 197 H (75-99) mg/dL Calcium (8.4-10.2) mg/dL Crossmatch Microbiology - Last 24 Hours (Table) 10/05/17 21:08 Blood Culture - Preliminary Blood No Growth after 72 hours 10/06/17 04:44 Gram Stain - Final Sputum Sputum Culture - Final Assessment and Plan Assessment: Assessment Acute hypoxemic respiratory failure, possibly secondary to pneumonia with sepsis , requiring intubation on October 06. Profound metabolic acidosis/lactic acidemia, likely secondary to metformin Profound hypotension despite fluids and maximal doses of norepinephrine. Atrial fibrillation/flutter, currently on amiodarone drip Acute kidney injury/ATN, requiring acute hemodialysis Acute pulmonary edema secondary to renal fire and fluid overload History of CAD History of CABG History of type 2 diabetes History of hypertension History of hyperlipidemia Plan: Plan dated 10/07/2017 The patient is a DO NOT RESUSCITATE. We'll have further discussions with the family about CODE STATUS. A few vent changes were made increasing the rate from 20 to 22 dropping the tidal volume from 500 to 450 and decreasing the PEEP from 10 to 5. These changes may improve blood pressure. The patient will see some additional fluid 1 L saline. The patient will also have the vasopressin weaned off. We'll see if we can get the patient on just one pressor. Additional recommendations and suggestions are forthcoming. Prognosis is guarded. Labs x-rays a medications are all reviewed. Critical care time 34 minutes. Plan dated 10/08/2017 The patient remains a DO NOT RESUSCITATE patient. Overall, there has not been any or much improvement at all of this patient. The patient will receive 1 unit of PRBCs today. Remains on multiple medications including saline IV, propofol, norepinephrine, heparin, insulin, and amiodarone. A chest x-ray labs and medications are reviewed. Prognosis is very poor. We'll continue to follow. Additional recommendations and suggestions are forthcoming. Critical care time 36 minutes Plan dated 10/09/2017 The patient despite very aggressive and supportive care, has not shown any improvement whatsoever. The patient continues to deteriorate. He is on maximal doses of vasopressor. The patient has not shown any improvement at all since I started seeing him on Saturday morning. In fact, his overall condition is worsened with multiorgan system failure. The patient is a DO NOT RESUSCITATE. That is appropriate. In addition, the patient should be made a comfort measures only. He should be terminally weaned. We'll see if the family agrees. Os sounds are on their way to the hospital. Labs x-rays a medications are all reviewed. Critical care time 36 minutes Time with Patient: Greater than 30
[2017-10-09 09:11] LABS: Glucose,Whole Blood 194 mg/dL (75-99)
[2017-10-09] MEDS ORDERED: SCOPOLAMINE 1.5MG/72HR PATCH TRANSDERM PRN (09:46)
[2017-10-09] MEDS ORDERED: MORPHINE SULFATE (100 MG/2 ML) 100 MG in SODIUM CHLORIDE 0.9% 100 ML IV SCH (10:00)
[2017-10-09 10:45] VITALS: BP 126/65
--- NOTE | 2017-10-09 11:35 | P.PN ---
Subjective Progress Note Date: 10/09/17 Principal diagnosis: Patient is an 86-year-old male past medical history of diabetes mellitus type 2, hypertension, and coronary artery bypass grafting who presented to the hospital accompanied by his sons due to altered mentation. In the ER he was found to have acute kidney injury with severe metabolic acidosis, lactic acidosis, and life-threatening hyperkalemia. Arrangements were made for emergent dialysis after he received temporizing measures. He was admitted to the ICU. He was also found have a positive troponin. He had no signs of sepsis as his white blood cell count was negative and he did not spike any fevers. He was placed on a bicarb drip secondary to his severe acidosis. Wismer screening mentation and worsening respiratory distress he required elective intubation early on the morning of 10/06. Patient sedated on propofol 40 mcg/kg/min and ventilated at present settings per pulmonary, on multiple drips for pressure support currently on levophed at 20 mcg/min, heparin weight-based protocol, insulin drip per protocol and initiated on amiodarone overnight due to atrial flutter//fibrillation with RVR, status post 1 unit of packed RBC transfusion due to low hemoglobin of 6.8. Objective - Vital Signs Vital signs: Vital Signs Temp 97.8 F 10/09/17 08:00 Pulse 79 10/09/17 11:15 Resp 18 10/09/17 11:15 BP 126/65 10/09/17 11:15 Pulse Ox 91 L 10/09/17 11:15 Intake & Output 10/08/17 10/09/17 10/09/17 18:59 06:59 18:59 Intake Total 2876.939 2047.926 815.867 Output Total 117 204 30 Balance 2759.939 1843.926 785.867 Weight 97.1 kg 102.3 kg Intake: IV 1342 1378 318 0.9 for pressure bag 42 78 18 Amiodarone 450 mg In 250 Dextrose 5% in Water 250 ml @ 1 MG/MIN 34.53 mls/ hr IV .Q7H31M LV Rx#: [id number] Magnesium Sulfate-D5w Pmx 200 1 gm In Dextrose/Water 1 100ml.bag @ 100 mls/hr IVPB Q1H LV Rx#: [id number] Piperacillin-Tazobactam 3 50 .375 gm In Dextrose/Water 1 50ml.bag @ 12.5 mls/hr IVPB Q12HR LV Rx#: [id number] Potassium Chloride 20 meq 100 In Water For Injection 1 100ml.bag @ 50 mls/hr IVPB Q2H LV Rx#: [id number] Sodium Chloride 0.9% 1, 700 1300 300 000 ml @ 100 mls/hr IV . Q10H LV Rx#:[id number] Intake, IV Titration 544.939 414.926 312.867 Amount Amiodarone 450 mg In 151.601 129.162 Dextrose 5% in Water 250 ml @ 1 MG/MIN 34.53 mls/ hr IV .Q7H31M LV Rx#: [id number] Insulin Regular 100 unit 48.036 29.054 In Sodium Chloride 0.9% 100 ml @ Per Protocol IV .Q0M LV Rx#:[id number] Morphine Sulfate (100 mg/ 2.227 2 ml) 100 mg In Sodium Chloride 0.9% 100 ml @ 1 MG/HR 1.02 mls/hr IV . Q24H LV Rx#:[id number] Norepinephrine 16 mg In 176.955 66.546 174.529 Dextrose 5% in Water 250 ml @ Titrate IV .Q0M LV Rx#:[id number] Propofol 1,000 mg In 168.347 219.218 107.057 Empty Bag 1 bag @ Titrate IV .Q0M LV Rx#: [id number] Oral 60 Tube Feeding 540 225 125 Blood Product 300 Rc As-1 Unit 300 [id number] Other 90 30 60 Output: Urine 117 204 30 Other: Voiding Method Indwelling Catheter Indwelling Catheter Indwelling Catheter ABP, PAP, CO, CI - Last Documented Arterial Blood Pressure 90/34 - Labs CBC & Chem 7: 10/09/17 04:50 10/09/17 04:50 Labs: Abnormal Lab Results - Last 24 Hours (Table) 10/08/17 10/08/17 10/08/17 Range/Units 12:06 13:19 14:09 RBC (4.30-5.90) m/uL Hgb (13.0-17.5) gm/dL Hct (39.0-53.0) % Plt Count (150-450) k/uL ABG pH (7.35-7.45) ABG pCO2 (35-45) mmHg ABG pO2 (83-108) mmHg ABG HCO3 (21-25) mmol/L ABG O2 Saturation (94-97) % Sodium (137-145) mmol/L Chloride (98-107) mmol/L Carbon Dioxide (22-30) mmol/L BUN (9-20) mg/dL Creatinine (0.66-1.25) mg/dL Glucose (74-99) mg/dL POC Glucose (mg/dL) 165 H 167 H 158 H (75-99) mg/dL Calcium (8.4-10.2) mg/dL 10/08/17 10/08/17 10/08/17 Range/Units 16:10 17:51 20:18 RBC (4.30-5.90) m/uL Hgb (13.0-17.5) gm/dL Hct (39.0-53.0) % Plt Count (150-450) k/uL ABG pH (7.35-7.45) ABG pCO2 (35-45) mmHg ABG pO2 (83-108) mmHg ABG HCO3 (21-25) mmol/L ABG O2 Saturation (94-97) % Sodium (137-145) mmol/L Chloride (98-107) mmol/L Carbon Dioxide (22-30) mmol/L BUN (9-20) mg/dL Creatinine (0.66-1.25) mg/dL Glucose (74-99) mg/dL POC Glucose (mg/dL) 176 H 154 H 166 H (75-99) mg/dL Calcium (8.4-10.2) mg/dL 10/08/17 10/08/17 10/09/17 Range/Units 22:00 23:31 02:18 RBC (4.30-5.90) m/uL Hgb (13.0-17.5) gm/dL Hct (39.0-53.0) % Plt Count (150-450) k/uL ABG pH (7.35-7.45) ABG pCO2 (35-45) mmHg ABG pO2 (83-108) mmHg ABG HCO3 (21-25) mmol/L ABG O2 Saturation (94-97) % Sodium (137-145) mmol/L Chloride (98-107) mmol/L Carbon Dioxide (22-30) mmol/L BUN (9-20) mg/dL Creatinine (0.66-1.25) mg/dL Glucose (74-99) mg/dL POC Glucose (mg/dL) 151 H 167 H 170 H (75-99) mg/dL Calcium (8.4-10.2) mg/dL 10/09/17 10/09/17 10/09/17 Range/Units 03:59 04:50 04:50 RBC 2.67 L (4.30-5.90) m/uL Hgb 7.6 L (13.0-17.5) gm/dL Hct 23.0 L (39.0-53.0) % Plt Count 116 L (150-450) k/uL ABG pH (7.35-7.45) ABG pCO2 (35-45) mmHg ABG pO2 (83-108) mmHg ABG HCO3 (21-25) mmol/L ABG O2 Saturation (94-97) % Sodium 128 L (137-145) mmol/L Chloride 95 L (98-107) mmol/L Carbon Dioxide 19 L (22-30) mmol/L BUN 67 H (9-20) mg/dL Creatinine 5.90 H* (0.66-1.25) mg/dL Glucose 165 H (74-99) mg/dL POC Glucose (mg/dL) 175 H (75-99) mg/dL Calcium 6.3 L* (8.4-10.2) mg/dL 10/09/17 10/09/17 10/09/17 Range/Units 05:10 07:03 08:00 RBC (4.30-5.90) m/uL Hgb (13.0-17.5) gm/dL Hct (39.0-53.0) % Plt Count (150-450) k/uL ABG pH 7.34 L (7.35-7.45) ABG pCO2 33 L (35-45) mmHg ABG pO2 140 H (83-108) mmHg ABG HCO3 18 L (21-25) mmol/L ABG O2 Saturation 99.1 H (94-97) % Sodium (137-145) mmol/L Chloride (98-107) mmol/L Carbon Dioxide (22-30) mmol/L BUN (9-20) mg/dL Creatinine (0.66-1.25) mg/dL Glucose (74-99) mg/dL POC Glucose (mg/dL) 184 H 197 H (75-99) mg/dL Calcium (8.4-10.2) mg/dL 10/09/17 Range/Units 09:09 RBC (4.30-5.90) m/uL Hgb (13.0-17.5) gm/dL Hct (39.0-53.0) % Plt Count (150-450) k/uL ABG pH (7.35-7.45) ABG pCO2 (35-45) mmHg ABG pO2 (83-108) mmHg ABG HCO3 (21-25) mmol/L ABG O2 Saturation (94-97) % Sodium (137-145) mmol/L Chloride (98-107) mmol/L Carbon Dioxide (22-30) mmol/L BUN (9-20) mg/dL Creatinine (0.66-1.25) mg/dL Glucose (74-99) mg/dL POC Glucose (mg/dL) 194 H (75-99) mg/dL Calcium (8.4-10.2) mg/dL Microbiology - Last 24 Hours (Table) 10/05/17 21:08 Blood Culture - Preliminary Blood No Growth after 72 hours 10/06/17 04:44 Gram Stain - Final Sputum Sputum Culture - Final Assessment and Plan Plan: The patient transition to comfort care placed on scopolamine patch and IV morphine We'll discontinue all treatment modalities, all IV drugs and will plan to extubate the patient Acute kidney injury with metabolic acidosis due to ATN -Status post emergent dialysis -NS with sodium bicarb drip -Nephrology recommendations -Renal ultrasound pending -Had a round of hemodialysis yesterday, canceled today secondary to hypotension -Hold glimepiride, metformin -No nephrotoxic agents noted on home medications Acute hypoxic respiratory failure -Likely secondary to severe metabolic acidosis and altered mentation -Continue with ventilator support -Appreciate pulmonary recommendations Toxic metabolic encephalopathy -Status post intubation, patient not waking up on sedation vacation -Multifactorial -Continue with supportive measures Diabetes mellitus type 2 with hyperglycemia -continue insulin drip per protocol -Pending hemoglobin A1c -Old oral hypoglycemics Normocytic anemia -Hemoglobin 6.8 earlier today now 7.5 post 1 unit packed RBC transfusion -Serial CBCs -If continues downtrending and initiate anemia workup Lactic acidosis -Status post IV fluid resuscitation -Likely will stay elevated secondary to renal failure -No signs of underlying sepsis with normal temperature and normal white blood cell count -Concerns for possible underlying pneumonia expressed by critical care and patient has been started on Zosyn and vancomycin atrial fibrillation/flutter * continue amiodarone drip Acute coronary syndrome with subsequent Cardiogenic shock -Echocardiogram results pending -Continue vasopressors, -Telemetry monitoring Disposition * Critical patient now made comfort care discussed with both his sons and they voiced understanding and are in agreement with the plan of care * Anticipated discharge: Unable to determine
--- NOTE | 2017-10-09 12:28 | PN ---
PROGRESS NOTE DATE OF SERVICE: 10/09/2017. HISTORY: The patient is seen for followup for acute kidney injury secondary to acute tubular necrosis, currently oliguric. The patient had one treatment of hemodialysis on initial admission. Subsequently, he has been severely hypotensive, requiring large doses of pressors; therefore we held off on further dialysis. The patient also developed atrial fibrillation with RVR and was on amiodarone drip. Last evening, patient converted to normal sinus rhythm and I was planning on repeating hemodialysis today, however, this morning the patient's temperature dropped and he has required increasing doses of pressors with Levophed now up to 50 mics. PHYSICAL EXAMINATION: On examination today, patient is sedated. He is on the vent. Blood pressure was 126/65, heart rate 77 per minute. He is afebrile. Examination of the heart, S1, S2. Examination lungs bilateral breath sounds are heard. Abdomen is distended, soft, nontender. Examination of lower extremities shows edema 1+ bilaterally. SLIP FEEDER exam cannot be performed. LABS: Show sodium 128, potassium 4.4, chloride 95, CO2 is 19, BUN 67, serum creatinine 5.9. ASSESSMENT: 1. Acute kidney injury, ATN, currently oliguric secondary to hypotension, hypoperfusion, and cardiogenic shock. I will hold off on dialysis given the fact that we had to go up on the Levophed, which is now up to 50 mics. 2. Status post acute myocardial infarction. 3. Anemia with no active bleeding noted, status post 1 unit packed RBCs transfusion yesterday. 4. Vent-dependent respiratory failure. Hypoxic respiratory failure. 5. Hyperkalemia on initial admission, currently improved. PLAN: Hold off on hemodialysis today. Overall prognosis is guarded. Consider comfort care measures given the fact that the Levophed was back up to 50 mcg. MMODL / IJN: [id number] /
[2017-10-09 20:22] VITALS: PULSE 0; RESP 0
--- NOTE | 2017-10-10 15:29 | P.DS ---
Providers Date of admission: 10/05/17 20:40 Attending physician: Nahed Gaona DO Consults: 10/05/17 20:40 Consult Physician Routine Consulting Provider: Altaf Bland Consult Reason/Comments: icu Do you want consulting provider notified?: Yes Consult Physician Routine Consulting Provider: Neena Meléndez Consult Reason/Comments: renalFail Do you want consulting provider notified?: Yes 10/05/17 21:49 Consult Physician Routine Consulting Provider: Jagjit Del Valle Consult Reason/Comments: dialysis Do you want consulting provider notified?: Yes 10/06/17 09:06 Consult Physician Routine Consulting Provider: Tyrese Vargas Consult Reason/Comments: elevated troponin Do you want consulting provider notified?: Yes 10/06/17 10:51 Consult Physician Routine Consulting Provider: Jagjit Del Valle Consult Reason/Comments: DIALYSIS CATH Do you want consulting provider notified?: Already Contacted Primary care physician: Joss Castro - Discharge Diagnosis(es) (1) Cardiogenic shock Status: Acute (2) Acute coronary syndrome Status: Acute (3) Hyperkalemia Status: Acute (4) Metabolic acidosis Status: Acute (5) Acute respiratory failure Status: Acute (6) Type 2 diabetes mellitus with hyperglycemia Status: Acute (7) Atrial fibrillation with RVR Status: Acute (8) Metabolic encephalopathy Status: Acute (9) Acute renal failure Status: Acute Hospital Course: 86-year-old male past medical history of diabetes mellitus type 2, hypertension, and coronary artery bypass grafting who presented to the hospital accompanied by his sons due to altered mentation. In the ER he was found to have acute kidney injury due to ATN with severe metabolic acidosis, lactic acidosis, and life-threatening hyperkalemia. Arrangements were made for emergent dialysis after he received temporizing measures. He was admitted to the ICU. He was also found have a positive troponin. He had no signs of sepsis as his white blood cell count was negative and he did not spike any fevers. He was placed on a bicarb drip secondary to his severe acidosis. He subsequently developed acute respiratory failure with hyperoxia and was subsequently intubated. He was started on multiple drips including heparin weightbase protocol for 4 was thought secondary to ACS with resultant cardiogenic shock for which the patient needed maximal doses of IV norepinephrine along with IV insulin drip for his ongoing hyperglycemia and underlying type 2 diabetes. He was started on amiodarone after having episodes of atrial fibrillation A flutter with RVR. He was also started on tube feeds along with maintenance fluids, nephrology was consulted and the patient received 1 round of hemodialysis but could not tolerate subsequent dialysis treatments secondary to ongoing hypotension, the patient became increasingly oliguric. The patient was started empirically on IV antibiotics for presumptive pneumonia and was continued on vancomycin and Zosyn. The patient was noted to be anemic and required a 1 unit of packed RBC transfusion after his hemoglobin dropped to 6.8. Despite all the aforementioned interventions and procedures, the patient's status continued to decline. The patient's CODE STATUS and plan of care was discussed with his sons Shant and Magdaleno and after a great consideration and reflection on the patient's extremely poor prognosis, they were agreeable and subsequently elected to place their father in comfort care. All IV medications were stopped and the patient was started on IV morphine and maintained on fluids. The patient subsequently at 20: 14 On October 09, 2017. The patient's certificate was filled out and faxed to [facility]. This expiration and discharge process took approximately 35 minutes Patient Condition at Discharge: Undetermined Plan - Discharge Summary New Discharge Prescriptions: No Action metFORMIN HCL [Glucophage] 850 mg PO TID amLODIPine [Norvasc] 5 mg PO DAILY Metoprolol Tartrate [Lopressor] 50 mg PO BID Glimepiride [Amaryl] 2 mg PO AC-BRKFST Finasteride [Proscar] 5 mg PO DAILY Atorvastatin [Lipitor] 80 mg PO HS Discharge Medication List Atorvastatin [Lipitor] 80 mg PO HS 10/05/17 [History] Finasteride [Proscar] 5 mg PO DAILY 10/05/17 [History] Glimepiride [Amaryl] 2 mg PO AC-BRKFST 10/05/17 [History] Metoprolol Tartrate [Lopressor] 50 mg PO BID 10/05/17 [History] amLODIPine [Norvasc] 5 mg PO DAILY 10/05/17 [History] metFORMIN HCL [Glucophage] 850 mg PO TID 10/05/17 [History] Follow up Appointment(s)/Referral(s): Joss Castro MD [Primary Care Provider] - 1-2 days Discharge Disposition:
== END 2017-10-09 20:14 | disposition expired | DRG 682 ==
LOC: EC 16:24 → 6ICU 20:40
PROVIDERS: ADMIT Internal Medicine; ATTEND Internal Medicine
PROC: 5A1D70Z Performance of Urinary Filtration, Intermittent, Less than 6 Hours Per Day (ICD-10-PCS; 2017-10-05)
PROC: 5A09357 Assistance with Respiratory Ventilation, Less than 24 Consecutive Hours, Continuous Positive Airway Pressure (ICD-10-PCS; 2017-10-05)
PROC: 5A1945Z Respiratory Ventilation, 24-96 Consecutive Hours (ICD-10-PCS; principal; 2017-10-06)
PROC: 0BH17EZ Insertion of Endotracheal Airway into Trachea, Via Natural or Artificial Opening (ICD-10-PCS; 2017-10-06)
PROC: 5A1D70Z Performance of Urinary Filtration, Intermittent, Less than 6 Hours Per Day (ICD-10-PCS; 2017-10-06)
PROC: 06HY33Z Insertion of Infusion Device into Lower Vein, Percutaneous Approach (ICD-10-PCS; 2017-10-06)
PROC: 03HY32Z Insertion of Monitoring Device into Upper Artery, Percutaneous Approach (ICD-10-PCS; 2017-10-06)
PROC: 4A133B1 Monitoring of Arterial Pressure, Peripheral, Percutaneous Approach (ICD-10-PCS; 2017-10-06)
PROC: 4A133J1 Monitoring of Arterial Pulse, Peripheral, Percutaneous Approach (ICD-10-PCS; 2017-10-06)
PROC: 02H633Z Insertion of Infusion Device into Right Atrium, Percutaneous Approach (ICD-10-PCS; 2017-10-06)
PROC: 0D9670Z Drainage of Stomach with Drainage Device, Via Natural or Artificial Opening (ICD-10-PCS; 2017-10-06)
PROC: 3E0G76Z Introduction of Nutritional Substance into Upper GI, Via Natural or Artificial Opening (ICD-10-PCS; 2017-10-06)
PROC: 30233N1 Transfusion of Nonautologous Red Blood Cells into Peripheral Vein, Percutaneous Approach (ICD-10-PCS; 2017-10-07)
DX: N17.0 Acute kidney failure with tubular necrosis (principal); J96.01 Acute respiratory failure with hypoxia; I21.4 Non-ST elevation (NSTEMI) myocardial infarction; G92 Toxic encephalopathy; J18.9 Pneumonia, unspecified organism; E87.2 Acidosis; N39.0 Urinary tract infection, site not specified; E87.1 Hypo-osmolality and hyponatremia; I48.92 Unspecified atrial flutter; R57.0 Cardiogenic shock; I11.0 Hypertensive heart disease with heart failure; I50.9 Heart failure, unspecified; E11.65 Type 2 diabetes mellitus with hyperglycemia; E11.22 Type 2 diabetes mellitus with diabetic chronic kidney disease; E87.5 Hyperkalemia; I48.91 Unspecified atrial fibrillation; E83.42 Hypomagnesemia; E83.39 Other disorders of phosphorus metabolism; D64.9 Anemia, unspecified; Z66 Do not resuscitate; Z51.5 Encounter for palliative care; T38.3X5A Adverse effect of insulin and oral hypoglycemic [antidiabetic] drugs, initial encounter; E87.6 Hypokalemia; I25.10 Atherosclerotic heart disease of native coronary artery without angina pectoris; E78.5 Hyperlipidemia, unspecified; Z95.1 Presence of aortocoronary bypass graft; Z79.84 Long term (current) use of oral hypoglycemic drugs; Z79.899 Other long term (current) drug therapy; Z87.442 Personal history of urinary calculi
CPT/HCPCS: 36415; 36600; 70450; 71045; 71046; 76770; 80048; 80053; 81001; 82550; 82553; 82805; 83036; 83520; 83605; 83735; 84100; 84132; 84484; 85025; 85027; 85610; 85730; 86706; 86850; 86900; 86901; 86920; 87040; 87070; 87086; 87205; 87340; 93005; 93306; 94002; 94003; 94640; 94660; 96361; 96365; 96366; 96375; 99285